=== PATIENT | female | born 1955 | race Caucasian/White ===

== ENCOUNTER 2017-02-09 14:43 | Emergency (ER) | payer OTHER ==
[2017-02-09] MEDS ORDERED: NS 1,000 ML IV ONE ×2 (15:52→17:43)
--- NOTE | 2017-02-09 15:57 | EDPHY ---
H & P Stated Complaint: sent by MD for low Na+, shaky, weak, dizzy Time Seen by Provider: 02/09/17 15:45 HPI/ROS: CHIEF COMPLAINT: Shaking and weakness HISTORY OF PRESENT ILLNESS: The patient is a 61-year-old female who comes to the emergency department at the advice of her Dr Neely for generalized weakness and shaking. She has a history of alcoholism and alcohol withdrawal seizures also chronic hyponatremia from SIADH in poor sodium intake. In the past they have tried to place her on salt tablets but she refused. She also has a history of bipolar disorder and COPD. She has not had a fever. She states her last drink of alcohol was last night. She minimizes her alcohol intake. She states that she does have an undiagnosed intention tremor at baseline but it seems worse today. REVIEW OF SYSTEMS: Constitutional: denies: chills, fever, recent illness, recent injury EENTM: denies: blurred vision, double vision, nose congestion Respiratory: denies: cough, shortness of breath Cardiac: denies: chest pain, irregular heart rate, lightheadedness, palpitations Gastrointestinal/Abdominal: denies: abdominal pain, diarrhea, nausea, vomiting, blood streaked stools Genitourinary: denies: dysuria, frequency, hematuria, pain Musculoskeletal: denies: joint pain, muscle pain Skin: denies: lesions, rash, jaundice, bruising Neurological: See HPI Hematologic/Lymphatic: denies: blood clots, easy bleeding, easy bruising Immunologic/allergic: denies: HIV/AIDS, transplant EXAM: GENERAL: Walking, no acute distress. HEAD: Atraumatic, normocephalic. EYES: Pupils equal round and reactive to light, extraocular movements intact, sclera anicteric, conjunctiva are normal. ENT: TMs normal, nares patent, oropharynx clear without exudates. Moist mucous membranes. NECK: Normal range of motion, supple without lymphadenopathy or JVD. LUNGS: Breath sounds clear to auscultation bilaterally and equal. No wheezes rales or rhonchi. HEART: Regular rate and rhythm without murmurs, rubs or gallops. ABDOMEN: Soft, nontender, normoactive bowel sounds. No guarding, no rebound. No masses appreciated. BACK: No CVA tenderness, no spinal tenderness, step-offs or deformities EXTREMITIES: Normal range of motion, no pitting or edema. No clubbing or cyanosis. NEUROLOGICAL: Mild diffuse tremor with movement. Cranial nerves II through XII grossly intact. Normal speech, normal gait. 5/5 strength, normal movement in all extremities, normal sensation PSYCH: Normal mood, normal affect. SKIN: Warm, dry, normal turgor, no visible rashes or lesions. Source: Patient Exam Limitations: No limitations - Personal History Current Tetanus/Diphtheria Vaccine: Yes Current Tetanus Diphtheria and Acellular Pertussis (TDAP): Yes Tetanus Vaccine Date: Within 5 years. - Medical/Surgical History Hx Asthma: No Hx Chronic Respiratory Disease: Yes Hx Diabetes: No Hx Cardiac Disease: No Hx Renal Disease: No Hx Cirrhosis: No Hx Alcoholism: Yes Hx HIV/AIDS: No Hx Splenectomy or Spleen Trauma: No Other PMH: COPD, HTN, mixed connective tissue disorder, hypothyroid, chronic pain, HL, reports bipolar, etoh, smoker, hep c+,pneumonia,psych - Family History Significant Family History: No pertinent family hx - Social History Smoking Status: Former smoker Alcohol Use: Heavy Drug Use: Marijuana Constitutional: Initial Vital Signs Temperature (C) 36.9 C 02/09/17 15:27 Heart Rate 116 H 02/09/17 15:27 Respiratory Rate 20 02/09/17 15:27 Blood Pressure 157/98 H 02/09/17 15:27 O2 Sat (%) 90 L 02/09/17 15:27 O2 Delivery Mode Room Air Allergies/Adverse Reactions: hydrochlorothiazide Allergy (Verified 02/09/17 15:25) Home Medications: Medication Instructions Recorded Albuterol Sulfate [Albuterol 2 puffs IH Q4H PRN 09/21/14 Inhaler Hfa] Calcium Carbonate [[id number]] 500 mg PO DAILY 09/21/14 Lisinopril [Zestril 5 mg (*)] 10 mg PO DAILY 09/21/14 [place]-3 Fatty Acids [Fish Oil 1000 1,000 mg PO DAILY 09/21/14 mg (*)] QUEtiapine FUMARATE [Seroquel 200 200 mg PO DAILY 09/21/14 mg (*)] QUEtiapine FUMARATE [Seroquel 300 mg PO HS 09/21/14 300mg (*)] Simvastatin 40 mg PO HS 09/21/14 Acetaminophen [Tylenol ES 500 mg 500 mg PO Q6 PRN 11/05/14 (*)] Hydroxychloroquine Sulfate 200 mg PO DAILY 11/05/14 [Plaquenil 200 mg (*)] Levothyroxine [Synthroid 112 mcg 112 mcg PO DAILY06 11/05/14 (*)] Meloxicam [Mobic 7.5 mg] 7.5 mg PO BID 11/05/14 Omeprazole 40 mg PO DAILY 11/05/14 diphenhydrAMINE [Benadryl] 25 mg PO Q6H PRN 11/05/14 Amoxicillin/Clavulanate Pot 875 mg PO BID #10 tab 11/10/14 [Augmentin 875 MG TAB (*)] Folic Acid [Folic Acid 1 MG (*)] 1 mg PO DAILY #0 tab 11/10/14 LORazepam [Ativan (*)] 0.5 mg PO Q4 PRN #14 tab 11/10/14 Methocarbamol [Robaxin 500 mg (*)] 500 mg PO QID #20 tab 11/10/14 Polyethylene Glycol 3350 [Miralax 17 gm PO DAILY PRN #0 pkt 11/10/14 17 gm (*)] oxyCODONE IR [Oxycodone Ir (*)] 5 - 10 mg PO Q3 PRN #30 tab 11/10/14 Medical Decision Making ED Course/Re-evaluation: 5:45 p.m. the patient states she is feeling much better. She still has very mild tremors in tachycardia. I will treat her with more Ativan and IV fluids. Her sodium here is 129 which is much more consistent with her previous levels. I suspect that the test yesterday was apparent. The patient states she did have some salty food yesterday at home. 6:35 p.m. the patient states that she feels completely well and wishes to go home. Her tremors have stop with Ativan. She is no longer tachycardic. I suspect that they are from alcohol withdrawal not from low sodium. Her sodium here is at her baseline. I suspect she had a bad value yesterday that was incorrect. I did offer to keep her for further observation and she declines. I offered to center to the alcohol recovery Center with benzos. She declines. She does not wish to stop drinking. Differential Diagnosis: Partial list of the Differential diagnosis considered include but were not limited to; electrolyte abnormality, alcohol withdrawal, dehydration and although unlikely based on the history and physical exam, I also considered infection, head injury. I discussed these differential diagnoses and the plan with the patient as well as the usual and expected course. The patient understands that the diagnosis is provisional and that in medicine we are not always correct and that further workup is often warranted. Usual and customary warnings were given. All of the patient's questions were answered. The patient was instructed to return to the emergency department should the symptoms at all worsen or return, otherwise to followup with the physician as we discussed. - Data Points Laboratory Results: Laboratory Results 02/09/17 15:51 02/09/17 15:51 02/09/17 02/09/17 15:51 15:51 WBC 5.06 10^3/uL 10^3/uL (3.80-9.50) RBC 3.57 10^6/uL L 10^6/uL (4.18-5.33) Hgb 12.6 g/dL g/dL (12.6-16.3) Hct 35.5 % L % (38.0-47.0) MCV 99.4 fL fL (81.5-99.8) MCH 35.3 pg H pg (27.9-34.1) MCHC 35.5 g/dL g/dL (32.4-36.7) RDW 12.7 % % (11.5-15.2) Plt Count 210 10^3/uL 10^3/uL (150-400) MPV 8.6 fL L fL (8.7-11.7) Neut % (Auto) 63.2 % % (39.3-74.2) Lymph % (Auto) 23.9 % % (15.0-45.0) Centre % (Auto) 10.7 % % (4.5-13.0) Eos % (Auto) 0.8 % % (0.6-7.6) Baso % (Auto) 0.8 % % (0.3-1.7) Nucleat RBC Rel Count 0.0 % % (0.0-0.2) Absolute Neuts (auto) 3.20 10^3/uL 10^3/uL (1.70-6.50) Absolute Lymphs (auto) 1.21 10^3/uL 10^3/uL (1.00-3.00) Absolute Monos (auto) 0.54 10^3/uL 10^3/uL (0.30-0.80) Absolute Eos (auto) 0.04 10^3/uL 10^3/uL (0.03-0.40) Absolute Basos (auto) 0.04 10^3/uL 10^3/uL (0.02-0.10) Absolute Nucleated RBC 0.00 10^3/uL 10^3/uL (0-0.01) Immature Gran % 0.6 % % (0.0-1.1) Immature Gran # 0.03 10^3/uL 10^3/uL (0.00-0.10) Sodium 129 mEq/L L mEq/L (134-144) Potassium 5.3 mEq/L H mEq/L (3.5-5.2) Chloride 88 mEq/L L mEq/L (97-110) Carbon Dioxide 21 mEq/l L mEq/l (22-31) Anion Gap 20 mEq/L H mEq/L (8-16) BUN 20 mg/dL mg/dL (7-23) Creatinine 1.1 mg/dL H mg/dL (0.6-1.0) Estimated GFR 51 Glucose 86 mg/dL mg/dL (70-100) Calcium 10.7 mg/dL H mg/dL (8.5-10.4) Phosphorus 5.2 mg/dL H mg/dL (2.5-4.5) TSH 0.343 uIU/mL L uIU/mL (0.465-4.680) Free T4 1.47 ng/dL ng/dL (0.59-2.19) Medications Given: Discontinued Medications Sodium Chloride (Ns) 1,000 mls @ 0 mls/hr IV ONCE ONE; Wide Open PRN Reason: Protocol Stop: 02/09/17 15:53 Last Admin: 02/09/17 16:02 Dose: 1,000 mls Sodium Chloride (Ns) 1,000 mls @ 0 mls/hr IV EDNOW ONE; Wide Open PRN Reason: Protocol Stop: 02/09/17 17:44 Last Admin: 02/09/17 17:58 Dose: 1,000 mls Lorazepam (Ativan Injection) 1 mg IVP EDNOW ONE Stop: 02/09/17 15:54 Last Admin: 02/09/17 16:08 Dose: Not Given Lorazepam (Ativan Injection) 1 mg IVP EDNOW ONE Stop: 02/09/17 16:08 Last Admin: 02/09/17 16:11 Dose: 1 mg Lorazepam (Ativan Injection) 1 mg IVP EDNOW ONE Stop: 02/09/17 17:44 Last Admin: 02/09/17 17:58 Dose: 1 mg Departure - Departure Disposition: Home, Routine, Self-Care Clinical Impression: ETOH abuse, Hyponatremia Condition: Fair Instructions: Hyponatremia (ED), Alcohol Withdrawal (ED) Referrals: Tammy Nelson MD [Primary Care Provider] - As per Instructions
[2017-02-09] MEDS: LORazepam 2 MG/ML INJ IVP ONE ×2 (16:02→16:08)
[2017-02-09 16:07] LABS: % IMMATURE GRANULYOCYTES 0.6 % (0.0-1.1); ABSOLUTE IMMATURE GRANULOCYTES 0.03 10^3/uL (0.00-0.10); ADD DIFF? NO; ADD MORPH? NO; ADD SCAN? NO; ATYPICAL LYMPHOCYTE FLAG 10 (0-99); FRAGMENT RBC FLAG 0 (0-99); HEMATOCRIT 35.5 % (38.0-47.0); HEMOGLOBIN 12.6 g/dL (12.6-16.3); LEFT SHIFT FLG 0 (0-99); LIPEMIA HEMOLYSIS FLAG 90 (0-99); MEAN CELL HEMOGLOBIN 35.3 pg (27.9-34.1); MEAN CELL HEMOGLOBIN CONCENTR. 35.5 g/dL (32.4-36.7); MEAN CELL VOLUME 99.4 fL (81.5-99.8); MEAN PLATELET VOLUME 8.6 fL (8.7-11.7); PLATELET CLUMPS FLAG 0 (0-99); PLATELET COUNT 210 10^3/uL (150-400); RED BLOOD CELL COUNT 3.57 10^6/uL (4.18-5.33); RED CELL DISTRIBUTION WIDTH 12.7 % (11.5-15.2)
[2017-02-09] MEDS ORDERED: LORazepam 2 MG/ML INJ IVP ONE ×2 (16:07→17:43)
[2017-02-09 16:40] LABS: ANION GAP 20 mEq/L (8-16); CALCIUM 10.7 mg/dL (8.5-10.4); CARBON DIOXIDE 21 mEq/l (22-31); CHLORIDE 88 mEq/L (97-110); CREATININE 1.1 mg/dL (0.6-1.0); GLOMERULAR FILTRATION RATE 51; GLUCOSE 86 mg/dL (70-100); POTASSIUM 5.3 mEq/L (3.5-5.2); SODIUM 129 mEq/L (134-144)
[2017-02-09 17:57] VITALS: RESP 16; TEMP 97.2; O2SAT 94
[2017-02-09 18:44] VITALS: BP 163/95; PULSE 97
== END 2017-02-09 18:44 | disposition home or self-care (01) ==
CPT/HCPCS: 96361; 96374; 96376; 99284; J2060

== ENCOUNTER → 2017-04-10 | Outpatient (CLI) | payer OTHER | LOC: FIMAGING 14:45 | PROVIDERS: ATTEND Internal Medicine Rheumatology ==

== ENCOUNTER 2017-06-25 23:58 | Emergency (ER) | payer OTHER ==
[2017-06-26 01:42] VITALS: TEMP 98.4
--- NOTE | 2017-06-26 01:46 | EDPHY ---
H & P Stated Complaint: fell 10am yesterday with right knee pain and swelling and ecchymosis Time Seen by Provider: 06/26/17 01:09 HPI/ROS: HPI The patient presents with fall which occurred yesterday at 10:00 a.m. when she was walking down a curb. She tripped and fell and landed on both of her knees. She was able to bear weight, however this was painful. The pain has been achy , his mostly medial. She has been using a cane which she had at home. She does not have any numbness or tingling. She does feel like her knee is swollen.. REVIEW OF SYSTEMS Constitutional: No fever, no chills. Eyes: No discharge. ENT: No sore throat. Cardiovascular: No chest pain, no palpitations. Respiratory: No cough, no shortness of breath. Gastrointestinal: No abdominal pain, no vomiting. Genitourinary: No hematuria. Musculoskeletal: No back pain. Skin: No rashes. Neurological: No headache. PMHx: COPD, osteoporosis Soc Hx: History of alcohol abuse PHYSICAL General Appearance: Alert, no distress Eyes: Pupils equal and round no pallor or injection ENT, Mouth: Mucous membranes moist Respiratory: There are no retractions, lungs are clear to auscultation Cardiovascular: Regular rate and rhythm Gastrointestinal: Abdomen is soft and non-tender, no masses, bowel sounds normal Neurological: A&O, moves all extremities Skin: Warm and dry, no rashes Musculoskeletal: Neck is supple non tender Extremities: Right knee with large effusion, there is ecchymoses overlying the patella, there is limited range of motion secondary to pain. Laxity is difficult to assess given large ecchymoses, there is tenderness along the medial joint line Psychiatric: Patient is oriented X 3, there is no agitation Source: Patient Exam Limitations: No limitations - Personal History Current Tetanus/Diphtheria Vaccine: Unsure Current Tetanus Diphtheria and Acellular Pertussis (TDAP): Unsure Tetanus Vaccine Date: Within 5 years. - Medical/Surgical History Hx Asthma: No Hx Chronic Respiratory Disease: Yes Hx Diabetes: No Hx Cardiac Disease: No Hx Renal Disease: No Hx Cirrhosis: No Hx Alcoholism: Yes Hx HIV/AIDS: No Hx Splenectomy or Spleen Trauma: No Other PMH: COPD, HTN, mixed connective tissue disorder, hypothyroid, chronic pain, HL, reports bipolar, etoh, smoker, hep c+,pneumonia,psych - Social History Smoking Status: Former smoker Constitutional: Initial Vital Signs Temperature (C) 36.5 C 06/26/17 00:05 Heart Rate 90 06/26/17 00:05 Respiratory Rate 18 06/26/17 00:05 Blood Pressure 149/88 H 06/26/17 00:05 O2 Sat (%) 94 06/26/17 00:05 O2 Delivery Mode Room Air Allergies/Adverse Reactions: hydrochlorothiazide Allergy (Mild, Verified 06/26/17 00:25) Home Medications: Medication Instructions Recorded Albuterol Sulfate [Albuterol 2 puffs IH Q4H PRN 09/21/14 Inhaler Hfa] Calcium Carbonate [[id number]] 500 mg PO DAILY 09/21/14 Lisinopril [Zestril 5 mg (*)] 10 mg PO DAILY 09/21/14 [place]-3 Fatty Acids [Fish Oil 1000 1,000 mg PO DAILY 09/21/14 mg (*)] QUEtiapine FUMARATE [Seroquel 200 200 mg PO DAILY 09/21/14 mg (*)] QUEtiapine FUMARATE [Seroquel 300 mg PO HS 09/21/14 300mg (*)] Simvastatin 40 mg PO HS 09/21/14 Acetaminophen [Tylenol ES 500 mg 500 mg PO Q6 PRN 11/05/14 (*)] Hydroxychloroquine Sulfate 200 mg PO DAILY 11/05/14 [Plaquenil 200 mg (*)] Levothyroxine [Synthroid 112 mcg 112 mcg PO DAILY06 11/05/14 (*)] Meloxicam [Mobic 7.5 mg] 7.5 mg PO BID 11/05/14 Omeprazole 40 mg PO DAILY 11/05/14 diphenhydrAMINE [Benadryl] 25 mg PO Q6H PRN 11/05/14 Amoxicillin/Clavulanate Pot 875 mg PO BID #10 tab 11/10/14 [Augmentin 875 MG TAB (*)] Folic Acid [Folic Acid 1 MG (*)] 1 mg PO DAILY #0 tab 11/10/14 LORazepam [Ativan (*)] 0.5 mg PO Q4 PRN #14 tab 11/10/14 Methocarbamol [Robaxin 500 mg (*)] 500 mg PO QID #20 tab 11/10/14 Polyethylene Glycol 3350 [Miralax 17 gm PO DAILY PRN #0 pkt 11/10/14 17 gm (*)] oxyCODONE IR [Oxycodone Ir (*)] 5 - 10 mg PO Q3 PRN #30 tab 11/10/14 Medical Decision Making - Diagnostics Imaging Results: X-ray right knee four view shows large joint effusion, no fracture, no dislocation, interpreted by me, radiology interpretation is pending. Procedures: Procedure: Arthrocentesis. After verbal informed consent was obtained explaining the risks including but not limited to infection and bleeding a arthrocentesis was performed on the right knee. The patient was prepped and draped in the usual sterile fashion. The joint was anesthetized with bupivacaine 0.5%. Approximately 50 mL of bloody fluid was obtained. There were no complications. The procedure was performed by myself. Differential Diagnosis: 62-year-old female with a mechanical fall more than 24 hr ago now with right- sided knee pain. Able to ambulate. On exam with tense effusion. There is overlying ecchymoses. Differential diagnosis includes patellar fracture, ligamentous injury, meniscal tear, tibial plateau fracture. In the emergency department, x-rays were obtained which demonstrated no obvious fracture. The patient and I discussed arthrocentesis and she would like to proceed. I was able to remove 50 mL of bloody fluid from her knee. She felt better after this. We discussed rice. I have referred her to Orthopedics. She will be discharged from the emergency department. Departure - Departure Disposition: Home, Routine, Self-Care Clinical Impression: Knee effusion, right Fall Qualifiers: Encounter type: initial encounter Qualified Code(s): W19.XXXA - Unspecified fall, initial encounter Condition: Good Instructions: Swollen Knee Joint (ED) Additional Instructions: Please use the Santhosh wrap at all times. I recommend you take Tylenol 650 mg every 6 hr as needed for pain. You should use ice and elevate your knee. Please continue to use a cane. I would recommend that you follow up with Orthopedics. I have put their information below. Referrals: Tammy Nelson MD [Primary Care Provider] - As per Instructions Fam Humphreys MD [Medical Doctor] - As per Instructions
[2017-06-26 02:08] VITALS: BP 125/73; PULSE 100; RESP 18; O2SAT 90
== END 2017-06-26 02:16 | disposition home or self-care (01) ==
LOC: EDUNIT#
PROC: 0S9C3ZZ Drainage of Right Knee Joint, Percutaneous Approach (ICD-10-PCS; principal; 2017-06-25)
DX: M25.461 Effusion, right knee (principal); J44.9 Chronic obstructive pulmonary disease, unspecified; I10 Essential (primary) hypertension; Z87.891 Personal history of nicotine dependence; W10.1XXA Fall (on)(from) sidewalk curb, initial encounter; Y92.89 Other specified places as the place of occurrence of the external cause; Y93.01 Activity, walking, marching and hiking

== ENCOUNTER 2017-07-01 19:14 | Inpatient (IN) | payer OTHER ==
--- NOTE | 2017-07-01 19:53 | EDPHY ---
H & P Stated Complaint: ETOH,COUGH,DIFFICUL;TY STANDING Time Seen by Provider: 07/01/17 19:21 HPI/ROS: CHIEF COMPLAINT: Altered mental status HISTORY OF PRESENT ILLNESS: 62-year-old female arrives by ambulance after she was found with altered mental status walking outside [place] is a wearing shorts and slippers in 15 degree and snowing conditions. EMS suspected acute alcohol intoxication. Patient has no complaints of pain or discomfort. She denies suicidal or homicidal ideation. REVIEW OF SYSTEMS: A ten point review of systems was performed and is negative with the exception of the items mentioned in the HPI PAST MEDICAL & SURGICAL HISTORY: Raynaud's disease. Alcoholism. Bipolar disorder. SOCIAL HISTORY:Admits to positive alcohol use today PHYSICAL EXAM (Prior to examination, patient consented to physical exam, hands were washed and my usual and customary physical exam procedures followed) 1) GENERAL: Poorly kept, alert oriented to person place only. Believes it is 1982.. 2) HEAD: Normocephalic, atraumatic 3) HEENT: Pupils equal, round, reactive to light bilaterally. Sclera anicteric. Nasopharynx, oropharynx, clear, no lesions. Ears bilaterally with normal tympanic membranes. 4) NECK: Full range of motion, no meningeal signs. 5) LUNGS: Clear auscultation bilaterally, no wheezes, no rhonchi, no retractions. 6) HEART: Regular rate and rhythm, no murmur, no heave, no gallop. 7) ABDOMEN: No guarding, no rebound, no focal tenderness, negative McBurney's, negative Swann's, negative Rovsing's, negative peritoneal sign, 8) MUSCULOSKELETAL: Bilateral lower extremity mottled appearance with cold feet , with with palpable bilateral DP PT pulses. 9) BACK: No CVA tenderness, no midline vertebral tenderness, no fluctuance, no step-off, no obvious trauma, no visual or palpable abnormality. 10) SKIN: Bilateral extremities mottled appearance, cold 11) Psychiatric: Patient is oriented X 3, there is no agitation. DIFFERENTIAL DIAGNOSIS: In no particular orderincluding but not limited to hypoglycemia, infectious process, electrolyte abnormality, head injury and intoxicants. - Personal History Current Tetanus/Diphtheria Vaccine: Yes Current Tetanus Diphtheria and Acellular Pertussis (TDAP): Yes Tetanus Vaccine Date: Within 5 years. - Medical/Surgical History Hx Asthma: No Hx Chronic Respiratory Disease: Yes Hx Diabetes: No Hx Cardiac Disease: No Hx Renal Disease: No Hx Cirrhosis: No Hx Alcoholism: Yes Hx HIV/AIDS: No Hx Splenectomy or Spleen Trauma: No Other PMH: COPD, HTN, mixed connective tissue disorder, hypothyroid, chronic pain, HL, reports bipolar, etoh, smoker, hep c+,pneumonia,psych - Social History Smoking Status: Former smoker Constitutional: Initial Vital Signs Temperature (C) 36.3 C 07/01/17 19:25 Heart Rate 103 H 07/01/17 19:25 Respiratory Rate 20 07/01/17 19:25 Blood Pressure 140/72 H 07/01/17 19:25 O2 Sat (%) 93 07/01/17 19:25 O2 Delivery Mode Nasal Cannula O2 (L/minute) 2 Allergies/Adverse Reactions: hydrochlorothiazide Allergy (Mild, Verified 07/01/17 19:29) Home Medications: Medication Instructions Recorded Albuterol Sulfate [Albuterol 2 puffs IH Q4H PRN 09/21/14 Inhaler Hfa] Calcium Carbonate [[id number]] 500 mg PO DAILY 09/21/14 Lisinopril [Zestril 5 mg (*)] 10 mg PO DAILY 09/21/14 Loda-3 Fatty Acids [Fish Oil 1000 1,000 mg PO DAILY 09/21/14 mg (*)] QUEtiapine FUMARATE [Seroquel 200 200 mg PO DAILY 09/21/14 mg (*)] QUEtiapine FUMARATE [Seroquel 300 mg PO HS 09/21/14 300mg (*)] Simvastatin 40 mg PO HS 09/21/14 Acetaminophen [Tylenol ES 500 mg 500 mg PO Q6 PRN 11/05/14 (*)] Hydroxychloroquine Sulfate 200 mg PO DAILY 11/05/14 [Plaquenil 200 mg (*)] Levothyroxine [Synthroid 112 mcg 112 mcg PO DAILY06 11/05/14 (*)] Meloxicam [Mobic 7.5 mg] 7.5 mg PO BID 11/05/14 Omeprazole 40 mg PO DAILY 11/05/14 diphenhydrAMINE [Benadryl] 25 mg PO Q6H PRN 11/05/14 Amoxicillin/Clavulanate Pot 875 mg PO BID #10 tab 11/10/14 [Augmentin 875 MG TAB (*)] Folic Acid [Folic Acid 1 MG (*)] 1 mg PO DAILY #0 tab 11/10/14 LORazepam [Ativan (*)] 0.5 mg PO Q4 PRN #14 tab 11/10/14 Methocarbamol [Robaxin 500 mg (*)] 500 mg PO QID #20 tab 11/10/14 Polyethylene Glycol 3350 [Miralax 17 gm PO DAILY PRN #0 pkt 11/10/14 17 gm (*)] oxyCODONE IR [Oxycodone Ir (*)] 5 - 10 mg PO Q3 PRN #30 tab 11/10/14 Medical Decision Making - Diagnostics Imaging Results: Imaging Impressions Chest X-Ray 07/01/17 20:58 Impression: No pneumonia. Nothing acute identified. Results discussed with MARIE Geronimo at 9:[address] 07/01/17 20:58 Impression: Nothing acute identified. Results called to MARIE Geronimo at 9:24 PM. General information for patients regarding this examination can be found at [email or web address]. If you have questions or comments about this report, please contact me at (hospital) or [phone] (cell). ED Course/Re-evaluation: 7:30 p.m.: Patient was seen shortly after arrival by myself and Dr. Eamon Mackey. She is noted have cold mottled bilateral feet which, given her history of Raynaud's disease and walking outside in sandals and shorts and 15 degree snowing we think is more than likely secondary to acute Raynaud's and cold weather exposure less than likely secondary to acute ischemia. Will warm the patient and re-evaluate. 8:15 p.m.: Patient's feet have been warmed and are becoming progressively more pink and less mottled. 8:59 p.m.: Patient was re-evaluated with serial exams a both myself and Dr. Eamon Mackey. Her alcohol level is negative. Discussed possible Wernicke encephalopathy, hepatic encephalopathy, delirium tremens. Plan will be admission. 10:30 p.m.: Consultation with hospitalist Dr. Allison Benavidez who will admit patient - Data Points Laboratory Results: Laboratory Results 07/01/17 20:09 07/01/17 20:09 07/01/17 07/01/17 07/01/17 20:09 20:09 20:09 WBC RBC Hgb Hct MCV MCH MCHC RDW Plt Count MPV Neut % (Auto) Lymph % (Auto) [place] % (Auto) Eos % (Auto) Baso % (Auto) Nucleat RBC Rel Count Absolute Neuts (auto) Absolute Lymphs (auto) Absolute Monos (auto) Absolute Eos (auto) Absolute Basos (auto) Absolute Nucleated RBC Immature Gran % Seg Neutrophils % Band Neutrophils % Lymphocytes % Monocytes % Metamyelocytes % Immature Gran # Absolute Seg Neuts Absolute Band Neuts Absolute Lymphocytes Absolute Monocytes Absolute Metamyelocyte RBC/WBC/PLT Morphology Platelet Estimate Sodium 131 mEq/L L mEq/L (135-145) Potassium 4.3 mEq/L mEq/L (3.5-5.2) Chloride 88 mEq/L L mEq/L (97-110) Carbon Dioxide 23 mEq/l mEq/l (22-31) Anion Gap 20 mEq/L H mEq/L (8-16) BUN 80 mg/dL H mg/dL (7-23) Creatinine 2.3 mg/dL H mg/dL (0.6-1.0) Estimated GFR 22 Glucose 100 mg/dL mg/dL (70-100) Calcium 10.4 mg/dL mg/dL (8.5-10.4) Total Bilirubin 0.8 mg/dL mg/dL (0.1-1.4) Conjugated Bilirubin 0.4 mg/dL mg/dL (0.0-0.5) Unconjugated Bilirubin 0.4 mg/dL mg/dL (0.0-1.1) AST 65 IU/L H IU/L (14-46) ALT 71 IU/L H IU/L (9-52) Alkaline Phosphatase 103 IU/L IU/L (38-126) Ammonia < 9.0 uMOL/L L uMOL/L (9.0-30.0) Total Protein 8.3 g/dL H g/dL (6.3-8.2) Albumin 4.9 g/dL g/dL (3.5-5.0) Lipase 628 IU/L H IU/L (23-300) TSH 6.770 uIU/mL H uIU/mL (0.465-4.680) Salicylates < 1.0 mg/dL L mg/dL (2.0-20.0) Acetaminophen < 10 mcg/mL L mcg/mL (10-30) Ethyl Alcohol < 10 mg/dL mg/dL (0-10) 07/01/17 20:09 WBC 8.73 10^3/uL 10^3/uL (3.80-9.50) RBC 4.14 10^6/uL L 10^6/uL (4.18-5.33) Hgb 14.4 g/dL g/dL (12.6-16.3) Hct 39.9 % % (38.0-47.0) MCV 96.4 fL fL (81.5-99.8) MCH 34.8 pg H pg (27.9-34.1) MCHC 36.1 g/dL g/dL (32.4-36.7) RDW 12.0 % % (11.5-15.2) Plt Count 358 10^3/uL 10^3/uL (150-400) MPV 8.3 fL L fL (8.7-11.7) Neut % (Auto) Not Reported Lymph % (Auto) Not Reported [place] % (Auto) Not Reported Eos % (Auto) Not Reported Baso % (Auto) Not Reported Nucleat RBC Rel Count 0.0 % % (0.0-0.2) Absolute Neuts (auto) Not Reported Absolute Lymphs (auto) Not Reported Absolute Monos (auto) Not Reported Absolute Eos (auto) Not Reported Absolute Basos (auto) Not Reported Absolute Nucleated RBC 0.00 10^3/uL 10^3/uL (0-0.01) Immature Gran % Not Reported Seg Neutrophils % 72 % % Band Neutrophils % 7 % % Lymphocytes % 8 % % Monocytes % 12 % % Metamyelocytes % 1 % % Immature Gran # Not Reported Absolute Seg Neuts 6.29 10^/uL 10^/uL (1.70-6.50) Absolute Band Neuts 0.61 10^3/uL 10^3/uL (0.00-0.70) Absolute Lymphocytes 0.70 10^3/uL L 10^3/uL (1.00-3.00) Absolute Monocytes 1.05 10^3/uL H 10^3/uL (0.30-0.80) Absolute Metamyelocyte 0.09 10^3/mL H 10^3/mL (0.00-0.00) RBC/WBC/PLT Morphology NORMAL (NORMAL) Platelet Estimate ADEQUATE (ADEQ) Sodium Potassium Chloride Carbon Dioxide Anion Gap BUN Creatinine Estimated GFR Glucose Calcium Total Bilirubin Conjugated Bilirubin Unconjugated Bilirubin AST ALT Alkaline Phosphatase Ammonia Total Protein Albumin Lipase TSH Salicylates Acetaminophen Ethyl Alcohol Medications Given: Discontinued Medications Sodium Chloride (Ns) 1,000 mls @ 0 mls/hr IV ONCE ONE PRN Reason: Wide Open Stop: 07/01/17 21:49 Last Admin: 07/01/17 21:54 Dose: 1,000 mls Lorazepam (Ativan Injection) 2 mg IVP EDNOW ONE Stop: 07/01/17 20:53 Last Admin: 07/01/17 20:58 Dose: 2 mg Lorazepam (Ativan Injection) 1 mg IVP EDNOW ONE Stop: 07/01/17 22:00 Last Admin: 07/01/17 22:01 Dose: 1 mg Departure - Departure Disposition: [facility] Inpatient Acute Clinical Impression: Alcohol withdrawal delirium Condition: Fair Referrals: Tammy Nelson MD [Primary Care Provider] - As per Instructions
[2017-07-01 20:26] LABS: PLATELET COUNT 358 10^3/uL (150-400)
[2017-07-01] MEDS ORDERED: LORazepam 2 MG/ML INJ IVP ONE ×2 (20:52→21:59)
[2017-07-01] MEDS ORDERED: THIAMINE HCL 100 MG TAB PO ONE (20:59)
[2017-07-01] MEDS ORDERED: FOLIC ACID 1 MG TAB PO ONE (20:59)
[2017-07-01] MEDS ORDERED: NS 1,000 ML IV ONE (21:48)
[2017-07-01] MEDS ORDERED: LORazepam 2 MG/ML INJ ONE (22:00)
[2017-07-01] MEDS ORDERED: LORazepam 2 MG/ML INJ IVP PRN (23:22)
--- NOTE | 2017-07-01 23:53 | PDGENHP ---
History and Physical - Chief Complaint altered mental status - History of Present Illness Source-patient is able to provide only a limited amount of history secondary to acute altered mental status. Majority of history obtained after discussion with ED provider and review of EMR. There is no family or friends at bedside. HPI - this is a 62-year-old female with past medical history significant for bipolar disorder, COPD, alcohol with history withdrawal and seizures, Raynaud's who presents emergency department today after she was found confused at [employer] wearing T-shirt, shorts and slippers. Patient reports that she went to the grocery store with her friend in her summer att in 20 degree weather which is typical for her. Patient states she fell at the [employer] and that is why she is here in the ER. Patient reports that she has had a series of falls. She denies any headache or neck pain but is unable to recall the events. Patient denies any fevers or chills. Patient does report left knee pain following a fall for which she was in the emergency department and had aspiration of the effusion. Patient reports some lower extremity edema which is worse on the left than the right but is new for her as well. Patient reports that she drinks a 1 L bottle of wine per day on a daily basis. Unsure of when she last had a drink. In the ED, patient brought in by EMS she was noted to have discolored and blanching bilateral distal lower and upper extremities. Patient's feet were we warmed with continued pulses. Patient's core temperature was found and remained within normal limits. Review of systems: Negative except as noted above History Information - Allergies/Home Medication List Allergies/Adverse Reactions: hydrochlorothiazide Allergy (Mild, Verified 07/01/17 19:29) Home Medications: Albuterol Sulfate [Albuterol Inhaler Hfa] 2 puffs IH Q4H PRN 09/21/14 [Last Taken Unknown] Calcium Carbonate [[id number]] 500 mg PO DAILY 09/21/14 [Last Taken Unknown] Lisinopril [Zestril 5 mg (*)] 10 mg PO DAILY 09/21/14 [Last Taken Unknown] Armour-3 Fatty Acids [Fish Oil 1000 mg (*)] 1,000 mg PO DAILY 09/21/14 [Last Taken Unknown] QUEtiapine FUMARATE [Seroquel 200 mg (*)] 200 mg PO DAILY 09/21/14 [Last Taken Unknown] QUEtiapine FUMARATE [Seroquel 300mg (*)] 300 mg PO HS 09/21/14 [Last Taken Unknown] Simvastatin 40 mg PO HS 09/21/14 [Last Taken Unknown] Acetaminophen [Tylenol ES 500 mg (*)] 500 mg PO Q6 PRN 11/05/14 [Last Taken Unknown] Hydroxychloroquine Sulfate [Plaquenil 200 mg (*)] 200 mg PO DAILY 11/05/14 [ Last Taken Unknown] Levothyroxine [Synthroid 112 mcg (*)] 112 mcg PO DAILY06 11/05/14 [Last Taken Unknown] Meloxicam [Mobic 7.5 mg] 7.5 mg PO BID 11/05/14 [Last Taken Unknown] Omeprazole 40 mg PO DAILY 11/05/14 [Last Taken Unknown] diphenhydrAMINE [Benadryl] 25 mg PO Q6H PRN 11/05/14 [Last Taken Unknown] I have personally reviewed and updated: family history, medical history, social history, surgical history Past Medical History: patient denied taking any medications on regular basis. - Past Medical History Additional medical history: Bipolar disorder, alcohol dependence with 3 withdrawal seizures, Raynaud's, erosive esophagitis, history GI bleed, hypothyroidism, COPD, tobacco abuse, history maxillary sinus fracture, anemia - Surgical History Additional surgical history: Breast reduction, sacral plasty - Family History Additional family history: Family history negative for seizures. brother with history of drug and alcohol abuse. Other family members with history of DM an HTN - Social History Smoking Status: Current some day smoker Tobacco Use: Cigarettes, Greater than 1 pack/day (One ppd x 50 years) Alcohol Use: Heavy (1 L more of 1 eye daily basis) Drug Use: None Additional social history: Patient lives alone in apartment. Her neighbor provide support. Patient has a brother who lives in [place]. Code status is full at this time unable to explain fully with patient previous admissions note also full code. Review of Systems Review of Systems: ROS: 10pt was reviewed & negative except for what was stated in HPI & below Physical Exam Physical Exam: Selected Entries 07/01/17 19:25 Blood Pressure Automatic Method Heart Rate 103 H Respiratory 20 Rate O2 Sat (%) 93 Temperature (C) 36.3 C Blood Pressure 140/72 H Mean Arterial 94 Pressure (MAP) O2 Delivery Room Air Mode Temperature Oral Source Temp Pulse Resp BP Pulse Ox 36.8 C 107 H 16 110/75 94 07/01/17 23:29 07/01/17 23:29 07/01/17 23:29 07/01/17 23:29 07/01/17 23:29 O2 (L/minute) 2 Constitutional: no apparent distress, chronically ill appearing, unkempt, cachectic Eyes: PERRL (Slightly decreased reactivity but symmetric bilaterally.), anicteric sclera, EOMI, No scleral injection Ears, Nose, Mouth, Throat: oral ulcer (Ulceration on the left lateral anterior tongue), poor dentition, dry mucous membranes Cardiovascular: no murmur, rub, or gallop, tachycardia, No JVD Peripheral Pulses: 1+: dorsalis-pedis (R) (Limited secondary to edema), dorsalis -pedis (L) (Limited secondary to edema) Respiratory: no respiratory distress, no rales or rhonchi, clear to auscultation , other (Poor inspiratory effort) Gastrointestinal: normoactive bowel sounds, soft, non-tender abdomen, no palpable masses, other (Abdomen is soft but full of stool. Nondistended), No guarding, No distension Genitourinary: no bladder tenderness, No rollins in urethra Skin: warm, erythema (To bilateral lower extremities extending approximately above the ankle), other (Patient has multiple abrasions and sores including right shoulder, left tongue ulceration, left arm scabbed lesion, circular scabbed lesions approximately 1 cm on bilateral lower extremities, left great toe wound, large circular gluteal of pressure sore appears to be from a toilet seat, sacral abrasions.), No normal color, No mottled Musculoskeletal: joint tenderness (S left knee), generalized weakness Neurologic: weakness, CN II-XII Intact, other (Nonfocal exam), No AAOx3, No sensation intact bilaterally, No facial droop Psychiatric: not anxious, encephalopathic, No not encephalopathic, No thought process linear, No suicidal ideation, No agitated Lab Data & Imaging Review 07/01/17 20:09 07/01/17 20:09 WBC 8.73 10^3/uL (3.80-9.50) 07/01/17 20:09 RBC 4.14 10^6/uL (4.18-5.33) L 07/01/17 20:09 Hgb 14.4 g/dL (12.6-16.3) 07/01/17 20:09 Hct 39.9 % (38.0-47.0) 07/01/17 20:09 MCV 96.4 fL (81.5-99.8) 07/01/17 20:09 MCH 34.8 pg (27.9-34.1) H 07/01/17 20:09 MCHC 36.1 g/dL (32.4-36.7) 07/01/17 20:09 RDW 12.0 % (11.5-15.2) 07/01/17 20:09 Plt Count 358 10^3/uL (150-400) 07/01/17 20:09 MPV 8.3 fL (8.7-11.7) L 07/01/17 20:09 Neut % (Auto) Not Reported 07/01/17 20:09 Lymph % (Auto) Not Reported 07/01/17 20:09 Fisher % (Auto) Not Reported 07/01/17 20:09 Eos % (Auto) Not Reported 07/01/17 20:09 Baso % (Auto) Not Reported 07/01/17 20:09 Nucleat RBC Rel Count 0.0 % (0.0-0.2) 07/01/17 20:09 Absolute Neuts (auto) Not Reported 07/01/17 20:09 Absolute Lymphs (auto) Not Reported 07/01/17 20:09 Absolute Monos (auto) Not Reported 07/01/17 20:09 Absolute Eos (auto) Not Reported 07/01/17 20:09 Absolute Basos (auto) Not Reported 07/01/17 20:09 Absolute Nucleated RBC 0.00 10^3/uL (0-0.01) 07/01/17 20:09 Immature Gran % Not Reported 07/01/17 20:09 Seg Neutrophils % 72 % 07/01/17 20:09 Band Neutrophils % 7 % 07/01/17 20:09 Lymphocytes % 8 % 07/01/17 20:09 Monocytes % 12 % 07/01/17 20:09 Metamyelocytes % 1 % 07/01/17 20:09 Immature Gran # Not Reported 07/01/17 20:09 Absolute Seg Neuts 6.29 10^/uL (1.70-6.50) 07/01/17 20:09 Absolute Band Neuts 0.61 10^3/uL (0.00-0.70) 07/01/17 20:09 Absolute Lymphocytes 0.70 10^3/uL (1.00-3.00) L 07/01/17 20:09 Absolute Monocytes 1.05 10^3/uL (0.30-0.80) H 07/01/17 20:09 Absolute Metamyelocyte 0.09 10^3/mL (0.00-0.00) H 07/01/17 20:09 RBC/WBC/PLT Morphology NORMAL (NORMAL) 07/01/17 20:09 Platelet Estimate ADEQUATE (ADEQ) 07/01/17 20:09 Sodium 131 mEq/L (135-145) L 07/01/17 20:09 Potassium 4.3 mEq/L (3.5-5.2) 07/01/17 20:09 Chloride 88 mEq/L (97-110) L 07/01/17 20:09 Carbon Dioxide 23 mEq/l (22-31) 07/01/17 20:09 Anion Gap 20 mEq/L (8-16) H 07/01/17 20:09 BUN 80 mg/dL (7-23) H 07/01/17 20:09 Creatinine 2.3 mg/dL (0.6-1.0) H 07/01/17 20:09 Estimated GFR 22 07/01/17 20:09 Glucose 100 mg/dL (70-100) 07/01/17 20:09 Calcium 10.4 mg/dL (8.5-10.4) 07/01/17 20:09 Total Bilirubin 0.8 mg/dL (0.1-1.4) 07/01/17 20:09 Conjugated Bilirubin 0.4 mg/dL (0.0-0.5) 07/01/17 20:09 Unconjugated Bilirubin 0.4 mg/dL (0.0-1.1) 07/01/17 20:09 AST 65 IU/L (14-46) H 07/01/17 20:09 ALT 71 IU/L (9-52) H 07/01/17 20:09 Alkaline Phosphatase 103 IU/L (38-126) 07/01/17 20:09 Ammonia < 9.0 uMOL/L (9.0-30.0) L 07/01/17 20:09 Total Protein 8.3 g/dL (6.3-8.2) H 07/01/17 20:09 Albumin 4.9 g/dL (3.5-5.0) 07/01/17 20:09 Lipase 628 IU/L (23-300) H 07/01/17 20:09 TSH 6.770 uIU/mL (0.465-4.680) H 07/01/17 20:09 Salicylates < 1.0 mg/dL (2.0-20.0) L 07/01/17 20:09 Acetaminophen < 10 mcg/mL (10-30) L 07/01/17 20:09 Ethyl Alcohol < 10 mg/dL (0-10) 07/01/17 20:09 Imaging Review: Chest, PA and Lateral History: Cough, EtOH, altered mental status Comparison: September 11 and November 06, 2014 Findings: There is new kyphoplasty cement in T7 which is mildly compressed. Other compressions of T8-T3-T4 and 5 are stable. No interval compressions have developed. Lungs are clear, without infiltrate or consolidation. Heart size and pulmonary vascularity are normal. There is no adenopathy or mass lesion. There is no pleural effusion. Right lateral fifth sixth and seventh rib fracture deformities are stable since November 06, 2014.. Impression: No pneumonia. Nothing acute identified. CT Head Without Contrast History: Altered mental status, EtOH. Technique: Noncontrast images through the head. Soft tissue and bone window evaluation is performed. Dose reduction techniques were utilized. Comparison: November 05, 2014 Findings: There is progressive supratentorial atrophy as evidenced by increase in width of the third ventricle and frontal horns. The greatest atrophy is in the midline cerebellum. There is no evidence for hemorrhage, mass lesion, acute infarction, intracranial edema, hydrocephalus or abnormal intracranial calcification. No subarachnoid blood is identified. There is no midline shift. The ambient cistern is patent. Bone window evaluation reveals normally aerated paranasal and mastoid sinuses. There is no evidence of pneumocephalus. There is a chronically reversed upper cervical curvature related to chronic spondylosis. Impression: Nothing acute identified. EKG additional interpertation: tele - sinus tachy Assessment & Plan Assessment: 62-year-old female with history of alcohol dependence found confused in below freezing conditions #Alcohol withdrawal delirium (Acute) - patient with an acute encephalopathy likely resulting from alcohol withdrawal with a previous history. Additional considerations for differential diagnosis including less likely infectious process versus metabolic with acute versus hepatic encephalopathy versus CVA vs uremia and less likely myxedema coma with history of elevated TSH verses mell/psychosis with history of untreated bipolar disorder. Patient without any white count or fever, and chest x-ray is clear.. Still awaiting a UA but patient remains dehydrated continuing IV fluids. Or alcohol level is negative. Will check up ammonia level in the morning. CT head negative for acute findings. Patient will be placed on CIWA protocol and has responded appropriately in the emergency department with Ativan dosing. Patient require close monitoring in the step- down unit. #avalos bite hands/feet-patient's feel significantly cor on arrival to the emergency department. She is status post weaning with continued pulses bilaterally. She does have some reperfusion edema present will monitor that closely. Unsure if there is a component of liver dysfunction in setting of chronic alcohol abuse. Sec does have some level of coagulopathy has she has extensive bruising with falls and likely cirrhosis. #GRACIELA-this is likely prerenal in nature patient will continue with IV fluids. Will plan to repeat a BMP and consider urine studies if no improvement. #hyponatremia-this could represents hypovolemia in setting of dehydration acute renal insufficiency. Continue with IV fluid replacement and repeat BMP as above. #transaminitis-secondary to alcohol cirrhosis versus alcoholic hepatitis versus less likely viral hepatitis. Will continue to monitor left LFTs. Will avoid hepatotoxic medications at this. #elevated lipase-likely elevated in setting of alcohol related hepatitis. This is under t 3 times upper limit of normal and patient without any abdominal pain consistent with a P pancreatitis but will monitor closely. #hypothyroidism-TSH is slightly elevated but could be 0 in setting of acute alcohol withdrawal. Will go ahead and check TFTs. It suspect patient with under treatment of her hypothyroidism on a regular basis. #wounds POA-see exam for locations including shoulder tongue arms legs buttock sacrum and toes. Patient with history of multiple falls and injuries. Wound Care has been consulted. Patient's circular wound on her buttocks is appears to be secondary to pressure involving the toilet seat. #falls - related to patient's alcoholism and withdrawal. Fall precautions and bed alarm. #COPD without exacerbation-patient with longstanding history of tobacco abuse currently without any wheezing patient will have DuoNeb available p.r.n. for shortness of breath. #Raynauds-patient continues to have erythema and discoloration at the distal digits despite rewarming. #History of esophagitis-patient is not currently taking any medications are on PPI will avoid H2 blockers at this time in setting of acute encephalopathy. Consider proton pump inhibitor for now. No evidence of active bleeding. #bipolar disorder-seoquel listed on home medications however patient denied taking any. regularity is uncertain. She attempts to be cooperative and answer questions as much as possible. She does not appear agitated or manic. Will continue to monitor and add antipsychotics if necessary. #underweight - bmi 18.8 - 2/2 etoh dependence and poor nutritional intake. dietary consulted. FEN - IVF with LR. electrolytes will be monitored and replaced prn. advance diet as tolerated if pt can safely swallow. COR - FULL at this time. patient confused. patient previous hospital stays also noted full. Patient desires her brother to act as proxy if needed PPX-SCDs will be held for now secondary to lower extremity edema and frostbite. Will check PT INR before initiating anticoagulation although patient is at increased risk for DVT she has extensive bruising related to falls and suspect coagulopathy in setting of chronic alcohol dependence and cirrhosis.
[2017-07-02] MEDS: ONDANSETRON 4 MG/2 ML VIAL IVP PRN (02:37)
[2017-07-02] MEDS: LR 1,000 ML IV SCH ×2 (02:43→20:45)
[2017-07-02] MEDS ORDERED: HALOPERIDOL LACT 5 MG/ML INJ IVP PRN (02:51)
[2017-07-02] MEDS ORDERED: LORazepam 2 MG/ML INJ IVP PRN (02:51)
[2017-07-02] MEDS: LORazepam 2 MG/ML INJ IVP SCH ×4 (05:04→18:16)
[2017-07-02] MEDS: HEPARIN 5,000 UNIT/0.5 ML SYR SC SCH ×3 (05:04→20:40)
[2017-07-02 06:20] LABS: PLATELET COUNT 316 10^3/uL (150-400)
[2017-07-02 06:31] LABS: CREATINE KINASE 584 IU/L (0-156)
[2017-07-02 06:39] LABS: INR 1.12 (0.83-1.16); PROTIME(PATIENT) 14.6 SEC (12.0-15.0)
--- NOTE | 2017-07-02 07:41 | PDMN ---
Medical Necessity Medical necessity: Pt meets INPT criteria per MD and [facility] M-590 Delirium (pt found confused in below freezing conditions; acute alcohol withdrawal delirium with a previous hx, avalos bite to hands and feet, GRACIELA, hyponatremia, transaminitis, elevated lipase; hx multiple falls and injuries, skin wounds, COPD, Raynauds, bipolar).
[2017-07-02] MEDS: THIAMINE HCL 500 MG in NS 100 ML IV SCH (08:25)
--- NOTE | 2017-07-02 09:45 | ASMTCMCOM ---
CM Note CM Note Notes: 62 year old female admitted for encephalopathy, ETOH W/D, falls. She has a hx of ETOH 1L wine/day, W/D, Sz, smoker, Bipolar, COPD, Raynaud's. CM to follow for discharge needs. Date Signed: 07/02/2017 09:44 AM Electronically Signed By:Mary Rushing LCSW
[2017-07-02] MEDS ORDERED: ALBUTEROL 60 PUFFS/8 GM MDI IH PRN (12:03)
[2017-07-02] MEDS: BUDESONIDE/FORMOTEROL 160/4.5 60 PUFFS/MDI IH SCH ×2 (12:11→20:40)
[2017-07-02] MEDS: LEVOTHYROXINE 112 MCG TAB PO SCH (12:27)
--- NOTE | 2017-07-02 14:58 | WOCRNPDOC ---
WOCRN Advanced Assessment Note - Skin Integrity Problem, Advanced Assess Bilateral Buttock Pressure Injury Dressing Type: Open to Air Exudate Amount: None Exudate Characteristic(s): None Integumentary Issue Intervention: Dressing Applied, Hydrogel Applied Gregoria Wound Tissue: Blanching, Intact Gregoria Wound Swelling: None Wound Bed Color: Red Wound Bed Constitution: Red/Crown Point - Non Granular Tissue, De-roofed Serous Blister Site Odor: None Site Measurement - Head-to-Toe Length X Width X Depth (cm): Right buttock: [id number]. Left buttock: 0.9 cm, 16.5cmx0.1cm Pressure Injury Stage: Stage 2 Pressure Injury Present on Admit: Yes (in H&P) Skin Integrity Problem Comment: Linear, partial-thickness wounds noted on patient's bilateral buttocks, appearance consistent w/ stage 2 pressure injury. Based upon the shape of the wounds, it looks as though these occurred while patient was sitting for an extended period of time on a toilet seat. Configuration is almost horseshoe-shaped, extending from lower buttock, up and across upper buttock. There are places along both these wounds where the skin remains intact, and these areas are stage 1 injuries w/ intact skin. However, there are patches of de-roofed blister and partial-thickness tissue loss, and these are stage 2. I applied hydrogel to any open areas, and covered both sides w/ 2 large 6x6 Allevyns. Nursing will apply an Accu-max pump to the patient's mattress. As the source of these pressure injuries has been removed, no additional pressure-relieving measures needed at this time.
[2017-07-02] MEDS ORDERED: oxyCODONE IR 5 MG TAB PO PRN (18:05)
--- NOTE | 2017-07-02 18:14 | HOSPPROG ---
Hospitalist Progress Note Assessment/Plan: Assessment: 62-year-old female p/w acute encephalopathy in setting of acute alcohol withdraw # Alcohol withdrawal. (Acute), evidenced by encephalopathy, tremulousness, anxiety, tachycardia - persists, adjusted ativan to 1mg scheduled + PRNs # Acute encephalopathy. Evidenced by global brain dysfunction characterized as confusion, disorientation, now somnolence, all of which are acute changes from baseline resulting from metabolic effects of GRACIELA/hyponatremia + alcohol withdraw , CXR clear (personally interpreted) - cont to monitor closely in SDU - HCT atrophy, NH4 nl # Hager bite hands/feet. S/p warming w/ some reperfusion edema - PRN oxy IR as this can be quite painful # GRACIELA. Likely 2/2 hypovolemia in setting of exposure, improving s/p IVF - avoid NSAIDs # Hyponatremia. Acute, 2/2 hypovolemia, cont IVF and monitor # Alcoholic hepatitis. Likely 2/2 EtOH, cont to monitor - avoid tylenol # Hypothyroidism. Cont synthroid, consider uptitration # Wounds. POA, see exam for locations including shoulder tongue arms legs buttock sacrum and toes. Patient with history of multiple falls and injuries. - Wound Care has been consulted # Falls. Chronic, related to patient's alcoholism and withdrawal. Fall precautions and bed alarm. # COPD without exacerbation. PRN duoneb # Raynauds. Chronic, patient continues to have erythema and discoloration at the distal digits despite rewarming. # History of esophagitis. PPI # Bipolar disorder. Unclear type, chronic, seoquel listed on home medications however patient denied taking any. - no current mell # Underweight - bmi 18.8 - 2/2 etoh dependence and poor nutritional intake. dietary consulted. Diet. Reg as florian PPx. High risk, hep sc Code. Full Dispo. ADD uncertain, ongoing withdraw High level of medical complexity, high risk worsening morbidity given ongoing withdraw and tachycardia w/ multiple co-morbid conditions. Subjective: patient reports discomfort in hands/feet Objective: Vital Signs Temp Pulse Resp BP Pulse Ox 37.1 C 86 23 H 149/66 H 95 07/02/17 15:48 07/02/17 15:48 07/02/17 15:48 07/02/17 15:48 07/02/17 15:48 Laboratory Results 07/02/17 06:00 07/02/17 06:00 07/01/17 07/02/17 07/03/17 05:59 05:59 05:59 Intake Total 824 1934 Output Total 0 700 Balance 824 1234 PT 14.6 SEC (12.0-15.0) 07/02/17 06:00 INR 1.12 (0.83-1.16) 07/02/17 06:00 - Physical Exam Constitutional: no apparent distress, chronically ill appearing, uncomfortable, unkempt Cardiovascular: tachycardia, edema (mild in distal extremities), other ( diminised pulses bilat dorsalis pedis), No systolic murmur, No irregularly irregular Respiratory: other (cough triggered on expiration), No reduced air movement, No expiratory wheeze, No inspiratory crackles, No bronchial breath sounds, No respiratory distress Gastrointestinal: normoactive bowel sounds, soft, non-tender abdomen, no palpable masses, No distension Skin: other (discolored, blanching bilat hands/feet) Neurologic: other (AAOx2 person/time, tremulous upper ext), No weakness, No asterixes, No facial droop Psychiatric: encephalopathic (concentration 2/7), anxious, flat affect, other ( naming 3/3), No agitated ICD10 Worksheet Patient Problems: Problems Problem Status Onset Upper GI bleed Acute Alcohol withdrawal delirium Acute
[2017-07-02] MEDS: QUEtiapine FUMARATE 300 MG TAB PO SCH (20:41)
[2017-07-02] MEDS: DILTIAZEM 30 MG TAB PO SCH ×2 (22:11→22:57)
[2017-07-02] MEDS ORDERED: DILTIAZEM 125 MG in D5W 125 ML IV SCH (22:45)
[2017-07-03] MEDS: LORazepam 2 MG/ML INJ IVP SCH ×3 (01:05→12:52)
[2017-07-03] MEDS: LR 1,000 ML IV SCH ×3 (01:07→18:15)
[2017-07-03] MEDS: LEVOTHYROXINE 112 MCG TAB PO SCH (04:07)
[2017-07-03] MEDS: HEPARIN 5,000 UNIT/0.5 ML SYR SC SCH (04:25)
[2017-07-03] MEDS: THIAMINE HCL 500 MG in NS 100 ML IV SCH (08:35)
[2017-07-03 09:05] LABS: HEPATITIS B SURFACE ANTIGEN NEGATIVE (NEGATIVE)
[2017-07-03 09:11] LABS: HEPATITIS A ANTIBODY IGM (BCH) NEGATIVE (NEGATIVE); HEPATITIS B CORE AB IGM NEGATIVE (NEGATIVE)
[2017-07-03 09:23] LABS: HEPATITIS C ANTIBODY TOTAL REACTIVE (NEGATIVE)
[2017-07-03] MEDS: BUDESONIDE/FORMOTEROL 160/4.5 60 PUFFS/MDI IH SCH ×2 (09:23→21:52)
[2017-07-03] MEDS: ENOXAPARIN 40 MG/0.4 ML SYR SC SCH (12:04)
--- NOTE | 2017-07-03 15:01 | ASMTCMCOM ---
CM Note CM Note Notes: I called patient's friend (listed in chart) Surjit Palmer. Patient has been too drowsy and confused to talk today. Per Surjit, he and patient "have some things to talk about." He made it seem like they have not been spending much time together lately but that another neighbor had informed him of her hospitalization. When I asked if she had any family, he said that she had a brother in [place] (no contact info) and that her mother had a few weeks ago. He wasn't sure if that was contributing to her drinking. He did say, "she takes her pills with wine." Regarding discharge, Surjit said that he does not drive anymore after a CVA a few months ago, but that he could accompany patient home in a cab if necessary. It's too early to determine d.c needs - initial PT shanti recommends SNF d/t patient's lack of stability on her feet. When she is able to have a conversation, we can speak with her about this and also about her drinking. Date Signed: 07/03/2017 03:00 PM Electronically Signed By:Chelle Burroughs RN
--- NOTE | 2017-07-03 17:14 | HOSPPROG ---
Hospitalist Progress Note Assessment/Plan: Assessment: 62-year-old female p/w acute encephalopathy in setting of acute alcohol withdraw # Alcohol withdrawal. (Acute), evidenced by encephalopathy, tremulousness, anxiety, tachycardia - persists, adjusted ativan PRNs to avoid worsening encephalopathy - d/w Dr. Cook, we agree to continue SDU # Acute encephalopathy. Evidenced by global brain dysfunction characterized as confusion, disorientation, now somnolence, all of which are acute changes from baseline resulting from metabolic effects of GRACIELA/hyponatremia + alcohol withdraw , CXR clear - cont to monitor closely in SDU, fluctuating mental status # Hager bite hands/feet. S/p warming w/ some reperfusion edema - PRN oxy IR as this can be quite painful, reduce dose range given ongoing encephalopathy # GRACILEA. Likely 2/2 hypovolemia in setting of exposure, improving s/p IVF - avoid NSAIDs # Hyponatremia. Acute, 2/2 hypovolemia, cont IVF and monitor # Alcoholic hepatitis. Likely 2/2 EtOH, cont to monitor - avoid tylenol # HCV. Unclear whether she has known diagnosis, will refer to ID on discharge # Hypothyroidism. Cont synthroid, consider uptitration # Wounds. POA, see exam for locations including shoulder tongue arms legs buttock sacrum and toes. Patient with history of multiple falls and injuries. - Wound Care has been consulted # Falls. Chronic, related to patient's alcoholism and withdrawal. Fall precautions and bed alarm. - PT/OT perlaals, recommend SNF, patient is unsafe to DC to street at this point # COPD without exacerbation. PRN duoneb # Raynauds. Chronic, patient continues to have erythema and discoloration at the distal digits despite rewarming. # History of esophagitis. PPI # Bipolar disorder. Unclear type, chronic, seoquel listed on home medications however patient denied taking any. - no current mell # Underweight - bmi 18.8 - 2/2 etoh dependence and poor nutritional intake. dietary consulted. Diet. Reg as florian PPx. High risk, lovenox 40 Code. Full Dispo. ADD uncertain, ongoing withdraw High level of medical complexity, high risk worsening morbidity given ongoing withdraw and tachycardia w/ multiple co-morbid conditions. Subjective: fluctuating mental status Objective: Vital Signs Temp Pulse Resp BP Pulse Ox 37.3 C 95 16 136/74 H 95 01/17/18 11:44 07/03/17 16:00 07/03/17 16:00 07/03/17 16:00 07/03/17 16:00 Laboratory Results 07/02/17 06:00 07/03/17 05:58 07/02/17 07/03/17 07/04/17 05:59 05:59 05:59 Intake Total 824 3803 540 Output Total 0 1600 Balance 824 2203 540 PT 14.6 SEC (12.0-15.0) 07/02/17 06:00 INR 1.12 (0.83-1.16) 07/02/17 06:00 - Physical Exam Constitutional: no apparent distress, not in pain, chronically ill appearing, uncomfortable Cardiovascular: tachycardia, edema (distal ext bilat UE/LE), No systolic murmur , No irregularly irregular Respiratory: no respiratory distress, no rales or rhonchi, clear to auscultation Gastrointestinal: normoactive bowel sounds, soft, non-tender abdomen, no palpable masses Skin: other (blanchable distal ext, discolored) Neurologic: AAOx3, sensation intact bilaterally, weakness (4/5 motor bilat LE), other (tremulous), No asterixes Psychiatric: encephalopathic (concentration 2/7), anxious, flat affect, poor memory, No agitated ICD10 Worksheet Patient Problems: Problems Problem Status Onset Upper GI bleed Acute Alcohol withdrawal delirium Acute
[2017-07-03] MEDS: QUEtiapine FUMARATE 300 MG TAB PO SCH (20:14)
[2017-07-03] MEDS: METOPROLOL TARTRATE 25 MG TAB PO SCH (20:14)
[2017-07-04] MEDS: LR 1,000 ML IV SCH (02:24)
[2017-07-04] MEDS: LEVOTHYROXINE 112 MCG TAB PO SCH (05:57)
[2017-07-04] MEDS: BUDESONIDE/FORMOTEROL 160/4.5 60 PUFFS/MDI IH SCH ×2 (08:27→20:57)
[2017-07-04] MEDS ORDERED: MELOXICAM 7.5 MG PO SCH (09:00)
[2017-07-04] MEDS ORDERED: NON-FORMULARY NEW DRUG (Meloxicam [Mobic 7.5 Mg] 7.5 MG) PO SCH (09:00)
[2017-07-04] MEDS: THIAMINE HCL 500 MG in NS 100 ML IV SCH (09:17)
[2017-07-04] MEDS: ENOXAPARIN 40 MG/0.4 ML SYR SC SCH (09:17)
[2017-07-04] MEDS: METOPROLOL TARTRATE 25 MG TAB PO SCH ×2 (09:17→20:42)
[2017-07-04] MEDS: LISINOPRIL 20 MG TAB PO SCH (09:17)
[2017-07-04] MEDS: NAPROXEN SODIUM 220 MG TAB PO SCH ×2 (11:06→20:42)
--- NOTE | 2017-07-04 17:23 | HOSPPROG ---
Hospitalist Progress Note Assessment/Plan: Assessment: 62-year-old female p/w acute encephalopathy in setting of acute alcohol withdraw # Alcohol withdrawal. (Acute), evidenced by tremulousness, anxiety, tachycardia - persists, adjusted ativan PRNs to avoid worsening encephalopathy - transfer to med surg # Acute encephalopathy. Evidenced by global brain dysfunction characterized as confusion, disorientation, now somnolence, all of which are acute changes from baseline resulting from metabolic effects of GRACIELA/hyponatremia + alcohol withdraw , CXR clear # Hager bite hands/feet. S/p warming w/ some reperfusion edema - PRN oxy IR as this can be quite painful, reduce dose range given ongoing encephalopathy - reintroduced NSAIDs, gauge whether we can stop opiates - resulting in significant debility and difficulty ambulating, may require SNF # GRACIELA. Likely 2/2 hypovolemia in setting of exposure, improving s/p IVF - resolved # Hyponatremia. Acute, 2/2 hypovolemia, off IVF # Alcoholic hepatitis. Likely 2/2 EtOH, cont to monitor - avoid tylenol # HCV. Unclear whether she has known diagnosis, will refer to ID on discharge # Hypothyroidism. Cont synthroid, consider uptitration # Wounds. POA, see exam for locations including shoulder tongue arms legs buttock sacrum and toes. Patient with history of multiple falls and injuries. - Wound Care has been consulted # Falls. Chronic, related to patient's alcoholism and withdrawal. Fall precautions and bed alarm. - PT/OT veronica, recommend SNF, patient is unsafe to DC to street at this point # COPD without exacerbation. PRN duoneb # Raynauds. Chronic, patient continues to have erythema and discoloration at the distal digits despite rewarming. # History of esophagitis. PPI # Bipolar disorder. Unclear type, chronic, seoquel listed on home medications however patient denied taking any. - no current mell # Underweight - bmi 18.8 - 2/2 etoh dependence and poor nutritional intake. dietary consulted. # HTN. Chronic, restart lisinopril and cont metop tart 12.5 bid # SVT. Acute, likely provoked by EtOH withdraw, chemically cardioverted w/ dilt - started metop tart 12.5 to suppress Diet. Reg as florian PPx. High risk, lovenox 40 Code. Full Dispo. ADD uncertain, ongoing withdraw Subjective: patient w/ ongoing pain, unsteady gait Objective: Vital Signs Temp Pulse Resp BP Pulse Ox 36.7 C 85 15 157/57 H 96 07/04/17 16:00 07/04/17 16:00 07/04/17 16:00 07/04/17 16:00 07/04/17 16:00 Laboratory Results 07/02/17 06:00 07/04/17 05:33 07/03/17 07/04/17 07/05/17 05:59 05:59 05:59 Intake Total 3803 3589 1650 Output Total 1600 1975 900 Balance 2203 1614 750 PT 14.6 SEC (12.0-15.0) 07/02/17 06:00 INR 1.12 (0.83-1.16) 07/02/17 06:00 - Physical Exam Constitutional: no apparent distress, chronically ill appearing, uncomfortable, unkempt, No not in pain (mild) Cardiovascular: tachycardia, edema (trace in distal hands/feet), No systolic murmur, No irregularly irregular Respiratory: expiratory wheeze (faint), No reduced air movement, No inspiratory crackles, No bronchial breath sounds, No respiratory distress Gastrointestinal: normoactive bowel sounds, soft, non-tender abdomen, no palpable masses, No distension Skin: other (blanchable hands/legs) Neurologic: sensation intact bilaterally, weakness (3/5 motor bilat LE), other ( AAOx2 (person and place)) Psychiatric: not anxious, flat affect, other (poor eye contact, follows commands , concentration 7/7), No agitated ICD10 Worksheet Patient Problems: Problems Problem Status Onset Upper GI bleed Acute Alcohol withdrawal delirium Acute
[2017-07-04] MEDS: QUEtiapine FUMARATE 300 MG TAB PO SCH (20:43)
[2017-07-05] MEDS: LEVOTHYROXINE 112 MCG TAB PO SCH (06:00)
[2017-07-05] MEDS: NAPROXEN SODIUM 220 MG TAB PO SCH ×2 (08:55→21:46)
[2017-07-05] MEDS: METOPROLOL TARTRATE 25 MG TAB PO SCH ×2 (08:56→21:47)
[2017-07-05] MEDS: ENOXAPARIN 40 MG/0.4 ML SYR SC SCH (08:56)
[2017-07-05] MEDS: LISINOPRIL 20 MG TAB PO SCH (08:56)
[2017-07-05] MEDS: BUDESONIDE/FORMOTEROL 160/4.5 60 PUFFS/MDI IH SCH ×2 (09:03→20:18)
--- NOTE | 2017-07-05 09:06 | WOCRNPDOC ---
WOCRN Advanced Assessment Note - Skin Integrity Problem, Advanced Assess Bilateral Buttock Pressure Injury Dressing Type: Allevyn Life Dressing Description: Intact Exudate Amount: Minimal Exudate Color: Reddish/Yellow Exudate Characteristic(s): Serosanguinous Integumentary Issue Intervention: Visualized Under Dressing Gregoria Wound Tissue: Blanching, Intact Gregoria Wound Swelling: None Wound Bed Color: Red Wound Bed Constitution: Red/[place] - Non Granular Tissue Wound Edges: Well Defined Pressure Injury Stage: Stage 2 Pressure Injury Present on Admit: Yes (Documented in H&P) Skin Integrity Problem Comment: Linear, partial-thickness wounds on bilateral buttocks consistent w/ stage 2 pressure injry. Exact etiology unknown, but appearance suggests patient may have sat for prolonged period on a toilet seat; horseshoe shape extending from lower buttocks and curving upward/inward on upper buttocks. Today wounds appear red, moist w/ no necrosis indicating deeper tissue involvement. Periwound skin is intact and blanching. Will continue to keep wounds covered w/ Allevyn Life dressings to protect from friction and confer moist healing environment. Continue w/ current plan of care. Wound RN will reassess on Wednesday 07/12.
--- NOTE | 2017-07-05 17:01 | ASMTCMCOM ---
CM Note CM Note Notes: CM met w/ pt for dispo planning. Therapies are recommending SNF. Pt is agreeable to going to SNF. Pt would like her first choice to be [facility] and her second choice [facility]. Referrals sent. CM started PASRR. CM was unable to complete PASRR because SPL is in the room. CM to follow. Plan: SNF Date Signed: 07/05/2017 05:00 PM Electronically Signed By:GRACY Newberry
--- NOTE | 2017-07-05 18:15 | HOSPPROG ---
Hospitalist Progress Note Assessment/Plan: Assessment: 62-year-old female p/w acute encephalopathy in setting of acute alcohol withdraw # Alcohol withdrawal. (Acute), evidenced by tremulousness, anxiety, tachycardia , found confused in [employer] - resolved, mild tremulousness if reportedly baseline - counseled EtOH cessation, drinks 2L/day # Acute encephalopathy. Although patient interacting better today, remains significantly impaired w/ cog eval demonstrating 06/15 on MMSE - unclear whether she has any baseline deficits, likely some element of ongoing acute impairment at this time - patient will likely require/benefit from SNF w/ physical and cog therapies # Hager bite hands/feet. S/p warming w/ some reperfusion edema and pain - reintroduced NSAIDs, gauge whether we can stop opiates - resulting in significant debility and difficulty ambulating, may require SNF # GRACIELA. Likely 2/2 hypovolemia in setting of exposure, improving s/p IVF - resolved # Hyponatremia. Acute, 2/2 hypovolemia, off IVF # Alcoholic hepatitis. Likely 2/2 EtOH, cont to monitor - avoid tylenol # HCV. Unclear whether she has known diagnosis, will refer to ID on discharge # Hypothyroidism. Cont synthroid, uptitrated # Wounds. POA, see exam for locations including shoulder tongue arms legs buttock sacrum and toes. Patient with history of multiple falls and injuries. - Wound Care has been consulted # Falls. Chronic, related to patient's alcoholism and withdrawal. Fall precautions and bed alarm. - PT/OT evals, recommend SNF, patient is unsafe to DC to street at this point # COPD without exacerbation. PRN duoneb # Raynauds. Chronic, patient continues to have erythema and discoloration at the distal digits despite rewarming. # History of esophagitis. PPI # Bipolar disorder. Unclear type, chronic, seoquel listed on home medications however patient denied taking any. - no current mell # Underweight - bmi 18.8 - 2/2 etoh dependence and poor nutritional intake. dietary consulted. # HTN. Chronic, restart lisinopril and cont metop tart 12.5 bid # SVT. Acute, likely provoked by EtOH withdraw, chemically cardioverted w/ dilt - started metop tart 12.5 to suppress Diet. Reg as florian PPx. High risk, lovenox 40 Code. Full Dispo. ADD uncertain, ongoing deconditioning and debility, unsafe to DC Subjective: mild pain in hands, tremulous at baseline Objective: Vital Signs Temp Pulse Resp BP Pulse Ox 36.8 C 93 16 149/68 H 93 07/05/17 16:20 07/05/17 16:20 07/05/17 16:20 07/05/17 16:20 07/05/17 16:20 Laboratory Results 07/02/17 06:00 07/05/17 04:30 07/04/17 07/05/17 07/06/17 05:59 05:59 05:59 Intake Total 3589 1800 250 Output Total 1975 900 600 Balance 1614 900 -350 PT 14.6 SEC (12.0-15.0) 07/02/17 06:00 INR 1.12 (0.83-1.16) 07/02/17 06:00 - Pending Discharge Pending Discharge Within 48 Hours: Yes Pending Discharge Date: 07/07/17 Pending Discharge Time: 11:00 - Physical Exam Constitutional: no apparent distress, not in pain, chronically ill appearing, uncomfortable Cardiovascular: regular rate and rhythym, no murmur, rub, or gallop, edema ( trace hands/feet) Respiratory: No reduced air movement, No expiratory wheeze, No inspiratory crackles (bases), No bronchial breath sounds, No respiratory distress Gastrointestinal: normoactive bowel sounds, soft, non-tender abdomen, no palpable masses, No distension Skin: other (blanching bilat hand, legs) Neurologic: AAOx3, sensation intact bilaterally, weakness (4/5 motor bilat LE), other (tremulous upper ext) Psychiatric: not anxious, flat affect, poor memory, other (concentration 7/7), No agitated ICD10 Worksheet Patient Problems: Problems Problem Status Onset Upper GI bleed Acute Alcohol withdrawal delirium Acute
[2017-07-05] MEDS ORDERED: LEVOTHYROXINE 112 MCG TAB PO SCH (18:18)
[2017-07-05] MEDS: QUEtiapine FUMARATE 300 MG TAB PO SCH (21:46)
[2017-07-06 04:59] LABS: PLATELET COUNT 224 10^3/uL (150-400)
[2017-07-06] MEDS: LEVOTHYROXINE 125 MCG TAB PO SCH (05:57)
[2017-07-06] MEDS: METOPROLOL TARTRATE 25 MG TAB PO SCH ×2 (09:15→20:24)
[2017-07-06] MEDS: NAPROXEN SODIUM 220 MG TAB PO SCH ×2 (09:15→20:23)
[2017-07-06] MEDS: ENOXAPARIN 40 MG/0.4 ML SYR SC SCH (09:16)
[2017-07-06] MEDS: oxyCODONE IR 5 MG TAB PO PRN ×2 (09:16→14:49)
[2017-07-06] MEDS: LISINOPRIL 20 MG TAB PO SCH (09:16)
[2017-07-06] MEDS: BUDESONIDE/FORMOTEROL 160/4.5 60 PUFFS/MDI IH SCH ×2 (09:29→19:56)
--- NOTE | 2017-07-06 16:08 | ASMTCMCOM ---
CM Note CM Note Notes: Today SWer completed triggering PASRR and faxed to [facility] in [place]. See hard chart for copy. Await approval for SNF admission. Please see [employer] for referrals made and status of acceptances. CM to follow for d/c POC. Date Signed: 07/06/2017 04:08 PM Electronically Signed By:Yanira Castro LCSW
--- NOTE | 2017-07-06 17:08 | HOSPPROG ---
Hospitalist Progress Note Assessment/Plan: #. Alcohol Withdrawal - mild tremor but she states she has been diagnosed with essential tremor in past. Continue prn lorazepam. #. Anemia - trend down in Hgb. Reassess in AM. Clinically without bleeding. #. Ecephalopathy - appears to be clearing but uncertain baseline. Consider repeat cognitive testing next week to assess for improvements. #. Hager bite/Wounds - no significant pain noted today. Wound care. #. GRACIELA - resolved. #. Hyponatremia - resolved #. RLE Edema - ultrasound in AM. #. HTN - stable with metoprolol and lisinopril. #. COPD - stable. #. Chronic Hep C - need to discuss further as to whether she is aware of this diagnosis. Consider ID consultation as outpatient. #. Hypothyroidism - Levothyroxine. #. Bipolar Disorder - seroquel #. DVT Prophylaxis - Lovenox #. Dispo - she lives alone. I do not think she has much family support. Subjective: No acute events overnight. No pain complaints during my evaluation. She pulled out her IV. She was able to tell me the year and location appropriately. Objective: Vital Signs Temp Pulse Resp BP Pulse Ox 36.9 C 107 H 20 140/73 H 99 07/06/17 15:40 07/06/17 15:40 07/06/17 15:40 07/06/17 15:40 07/06/17 15:40 Laboratory Results 07/06/17 04:10 07/06/17 04:10 07/05/17 07/06/17 07/07/17 05:59 05:59 05:59 Intake Total 1800 770 Output Total 900 1200 Balance 900 -430 PT 14.6 SEC (12.0-15.0) 07/02/17 06:00 INR 1.12 (0.83-1.16) 07/02/17 06:00 - Physical Exam Constitutional: no apparent distress, not in pain Cardiovascular: regular rate and rhythym, systolic murmur Respiratory: no respiratory distress, clear to auscultation Gastrointestinal: normoactive bowel sounds, soft, non-tender abdomen, no palpable masses Genitourinary: No rollins in urethra Neurologic: AAOx3, CN II-XII Intact, No asterixes ICD10 Worksheet Patient Problems: Problems Problem Status Onset Alcohol withdrawal delirium Acute Upper GI bleed Acute
[2017-07-06] MEDS: QUEtiapine FUMARATE 300 MG TAB PO SCH (20:24)
[2017-07-07] MEDS: LEVOTHYROXINE 125 MCG TAB PO SCH (06:13)
[2017-07-07] MEDS: BUDESONIDE/FORMOTEROL 160/4.5 60 PUFFS/MDI IH SCH ×2 (08:38→19:49)
[2017-07-07 09:09] LABS: PLATELET COUNT 223 10^3/uL (150-400)
[2017-07-07] MEDS: METOPROLOL TARTRATE 25 MG TAB PO SCH ×2 (09:38→20:24)
[2017-07-07] MEDS: ENOXAPARIN 40 MG/0.4 ML SYR SC SCH (09:39)
[2017-07-07] MEDS: LISINOPRIL 20 MG TAB PO SCH (09:39)
[2017-07-07] MEDS: NAPROXEN SODIUM 220 MG TAB PO SCH ×2 (09:39→20:23)
--- NOTE | 2017-07-07 16:45 | HOSPPROG ---
Hospitalist Progress Note Assessment/Plan: #. Alcohol Withdrawal - mild tremor but she states she has been diagnosed with essential tremor in past. No lorazepam currently ordered. #. Anemia - Continued trend downward. Clinically without bleeding. Reassess again in AM. #. Ecephalopathy - appears to be clearing but uncertain baseline. Consider repeat cognitive testing next week to assess for improvements. #. Hager bite/Wounds - no significant pain noted today. Wound care. #. RLE Edema - No DVT on ultrasound. I would not exclude cellulitis. Will reassess again tomorrow. #. HTN - stable with metoprolol and lisinopril. #. COPD - stable. #. Chronic Hep C - need to discuss further as to whether she is aware of this diagnosis. Consider ID consultation as outpatient. #. Hypothyroidism - Levothyroxine. #. Bipolar Disorder - seroquel #. DVT Prophylaxis - Lovenox #. Dispo - she lives alone. I do not think she has much family support. I think placement may be helpful. Will review with case management. Subjective: F/U on RLE edema. We discussed no DVT seen on U/S. No pain or fevers noted. She states it looks stable in regards to the degree of erythema. No chronic swelling. Objective: Vital Signs Temp Pulse Resp BP Pulse Ox 36.9 C 91 20 162/75 H 96 07/07/17 15:49 07/07/17 15:49 07/07/17 15:49 07/07/17 15:49 07/07/17 15:49 Laboratory Results 07/07/17 08:54 07/07/17 08:54 07/06/17 07/07/17 07/08/17 05:59 05:59 05:59 Intake Total 770 300 750 Output Total 1200 1100 600 Balance -430 -800 150 PT 14.6 SEC (12.0-15.0) 07/02/17 06:00 INR 1.12 (0.83-1.16) 07/02/17 06:00 - Physical Exam Constitutional: no apparent distress, unkempt Cardiovascular: regular rate and rhythym, no murmur, rub, or gallop Respiratory: no respiratory distress, no rales or rhonchi Gastrointestinal: normoactive bowel sounds, soft, non-tender abdomen Genitourinary: No rollins in urethra Skin: warm, other (mild erythema on foot and to mid-correa, warm to touch.) Psychiatric: not anxious ICD10 Worksheet Patient Problems: Problems Problem Status Onset Alcohol withdrawal delirium Acute Upper GI bleed Acute
[2017-07-07] MEDS: QUEtiapine FUMARATE 300 MG TAB PO SCH (20:24)
[2017-07-08] MEDS: LEVOTHYROXINE 125 MCG TAB PO SCH (04:53)
[2017-07-08] MEDS: METOPROLOL TARTRATE 25 MG TAB PO SCH ×2 (08:17→20:27)
[2017-07-08] MEDS: ENOXAPARIN 40 MG/0.4 ML SYR SC SCH (08:18)
[2017-07-08] MEDS: LISINOPRIL 20 MG TAB PO SCH (08:18)
[2017-07-08] MEDS: NAPROXEN SODIUM 220 MG TAB PO SCH ×2 (08:19→20:26)
[2017-07-08] MEDS: BUDESONIDE/FORMOTEROL 160/4.5 60 PUFFS/MDI IH SCH ×2 (08:54→20:52)
--- NOTE | 2017-07-08 16:34 | ASMTCMCOM ---
CM Note CM Note Notes: PASSR complete.Multiple medical problems. Therapies recommending SNF. [facility] accepting patient . Spoke with patient who states she is ok with that . Likely to dc tomorrow. CM to follow. Date Signed: 07/08/2017 04:33 PM Electronically Signed By:Ingrid Hinton RN
[2017-07-08] MEDS: PANTOPRAZOLE SODIUM 40 MG TAB PO SCH (17:31)
[2017-07-08] MEDS: QUEtiapine FUMARATE 300 MG TAB PO SCH (20:26)
[2017-07-08] MEDS ORDERED: METOPROLOL TARTRATE 25 MG TAB PO ONE (21:45)
[2017-07-08] MEDS ORDERED: CALCIUM CARBONATE 500 MG CHEWABLE TAB PO PRN (21:48)
--- NOTE | 2017-07-08 22:04 | HOSPPROG ---
Hospitalist Progress Note Assessment/Plan: #. Alcohol Withdrawal - mild tremor but she states she has been diagnosed with essential tremor in past. No lorazepam currently ordered. Stable. #. Anemia - Continued trend downward. Clinically without bleeding. Stable on repeat today. #. Ecephalopathy - appears to be clearing but uncertain baseline. I think she is likely now at [facility]. #. Hager bite/Wounds - no significant pain noted today. Wound care. #. RLE Edema - No DVT on ultrasound. No fracture on x-ray. Possibly mild cellulitis as warm and erythematous on exam. Will start PO keflex. #. HTN - stable with metoprolol and lisinopril. #. COPD - stable. #. Chronic Hep C - patient aware of this diagnosis. She states she was treated with interferon in the distant past and prior viral studies have been unremarkable. #. Hypothyroidism - Levothyroxine. #. Bipolar Disorder - seroquel #. DVT Prophylaxis - Lovenox #. Dispo - she lives alone. I do not think she has much family support. ALTAF completed today and patient has been accepted to [facility]. I would anticipate she could transfer there in the next 1-2 days. Subjective: F/U RLE edema. No new complaints today. She states she does not use oxygen at home but has needed during the day in the hospital. I took her off of oxygen today and stayed in mid-90's. Objective: Vital Signs Temp Pulse Resp BP Pulse Ox 37.1 C 100 14 180/91 H 96 07/08/17 20:00 07/08/17 20:00 07/08/17 20:53 07/08/17 20:00 07/08/17 20:53 Laboratory Results 07/08/17 19:51 07/07/17 08:54 07/07/17 07/08/17 07/09/17 05:59 05:59 05:59 Intake Total 300 1400 740 Output Total 1100 1500 950 Balance -800 -100 -210 PT 14.6 SEC (12.0-15.0) 07/02/17 06:00 INR 1.12 (0.83-1.16) 07/02/17 06:00 - Physical Exam Constitutional: no apparent distress Cardiovascular: regular rate and rhythym, no murmur, rub, or gallop, edema (RLE) Respiratory: no respiratory distress, no rales or rhonchi Gastrointestinal: normoactive bowel sounds, soft, non-tender abdomen Genitourinary: No rollins in urethra Skin: erythema (RLE) Psychiatric: No anxious ICD10 Worksheet Patient Problems: Problems Problem Status Onset Alcohol withdrawal delirium Acute Upper GI bleed Acute
[2017-07-08] MEDS: ONDANSETRON 4 MG/2 ML VIAL IVP PRN (22:21)
[2017-07-08] MEDS: CEPHALEXIN 500 MG CAP PO SCH (22:21)
[2017-07-09] MEDS: LEVOTHYROXINE 125 MCG TAB PO SCH (05:02)
[2017-07-09] MEDS: CEPHALEXIN 500 MG CAP PO SCH ×2 (05:02→13:08)
[2017-07-09] MEDS: NAPROXEN SODIUM 220 MG TAB PO SCH (08:08)
[2017-07-09] MEDS: METOPROLOL TARTRATE 25 MG TAB PO SCH (08:09)
[2017-07-09] MEDS: LISINOPRIL 20 MG TAB PO SCH (08:09)
[2017-07-09] MEDS: PANTOPRAZOLE SODIUM 40 MG TAB PO SCH (08:09)
[2017-07-09] MEDS: ENOXAPARIN 40 MG/0.4 ML SYR SC SCH (08:09)
[2017-07-09] MEDS: BUDESONIDE/FORMOTEROL 160/4.5 60 PUFFS/MDI IH SCH (09:29)
[2017-07-09] MEDS ORDERED: diphenhydrAMINE 25 MG CAP PO PRN (09:29)
--- NOTE | 2017-07-09 11:22 | PDHOMEO2F ---
Home Oxygen Face to Face Home Orders: I certify that a physician or a nurse practitioner or physician's account management assistant has had a [id number] encounter with this patient on the date of this order due to the diagnosis listed, which relates to the primary reason the patient requires home oxygen. Alternative treatments have been tried, or considered, and deemed ineffective. It is anticipated that supplemental oxygen will result in improvement with treatment. Home oxygen qualifying diagnosis: copd SpO2 on room air (%): 85 Frequency of home oxygen needed: continuous Home oxygen liters per minute: 2 Home oxygen delivery device: nasal cannula Concentrator: Yes E-tanks for mobility and back up: Yes If ordering portable O2, is the patient mobile in the home?: Yes I certify that, based on these findings, the home oxygen is medically necessary for this patient for the following length of time. Length of time home oxygen needed: 99 years
[2017-07-09 11:31] VITALS: BP 133/72; PULSE 82; RESP 16; TEMP 98; O2SAT 91
[2017-07-09] MEDS: oxyCODONE IR 5 MG TAB PO PRN (13:08)
--- NOTE | 2017-07-09 17:27 | ASDISCHSUM ---
Discharge Information Plan Status:SNF Medically Cleared to Leave:07/08/2017 Discharge Date:07/09/2017 02:30 PM CM D/C Disposition:Group Home Facility ADT D/C Disposition:Group Home Facility Projected Discharge Date:07/07/2017 11:00 AM Transportation at D/C:Wheelchair Van Discharge Delay Reason: Follow-Up Date:07/07/2017 11:00 AM Discharge Slot: Final Diagnosis: Placement Information Referral Type:*Detention/SNF Referral ID:[id number] Provider Name:Ramiro Dyer/TABITHA Jiménez Address 1:[address] Phone Number: Address 2: Fax Number: [facility]:[place] Selection Factors: State:[place] Patient Contact Information Contact Name:KEYYBMICHAEL Relationship:Friend Address: Work Phone: [facility]:[place] Alternate Phone: [facility] Code:[place] Email: Financial Information Financial Class:Medicare Advantage Plans Primary Plan Desc:[facility] ADVANTAGE PLANS Primary Plan Number:[id number] Secondary Plan Desc: Secondary Plan Number: Assessment Information [facility] CM Progress Note CM Note CM Note Notes: 62 year old female admitted for encephalopathy, ETOH W/D, falls. She has a hx of ETOH 1L wine/day, W/D, Sz, smoker, Bipolar, COPD, Raynaud's. CM to follow for discharge needs. Date Signed: 07/02/2017 09:44 AM Electronically Signed By:Mary Rushing LCSW [facility] CM Progress Note CM Note CM Note Notes: I called patient's friend (listed in chart) Surjit Palmer. Patient has been too drowsy and confused to talk today. Per Surjit, he and patient "have some things to talk about." He made it seem like they have not been spending much time together lately but that another neighbor had informed him of her hospitalization. When I asked if she had any family, he said that she had a brother in [place] (no contact info) and that her mother had a few weeks ago. He wasn't sure if that was contributing to her drinking. He did say, "she takes her pills with wine." Regarding discharge, Surjit said that he does not drive anymore after a CVA a few months ago, but that he could accompany patient home in a cab if necessary. It's too early to determine d.c needs - initial PT shanti recommends SNF d/t patient's lack of stability on her feet. When she is able to have a conversation, we can speak with her about this and also about her drinking. Date Signed: 07/03/2017 03:00 PM Electronically Signed By:Chelle Burroughs RN [facility] CM Progress Note CM Note CM Note Notes: CM met w/ pt for dispo planning. Therapies are recommending SNF. Pt is agreeable to going to SNF. Pt would like her first choice to be [facility] and her second choice [facility]. Referrals sent. CM started PASRR. CM was unable to complete PASRR because SPL is in the room. CM to follow. Plan: SNF Date Signed: 07/05/2017 05:00 PM Electronically Signed By:GRACY Newberry [facility] CM Progress Note CM Note CM Note Notes: Today SWer completed triggering PAS and faxed to Cassandra Dorantes in [place]. See hard chart for copy. Await approval for SNF admission. Please see [employer] for referrals made and status of acceptances. CM to follow for d/c POC. Date Signed: 07/06/2017 04:08 PM Electronically Signed By:Yanira Castro LCSW [facility] CM Progress Note CM Note CM Note Notes: PASSR complete.Multiple medical problems. Therapies recommending SNF. [facility] accepting patient . Spoke with patient who states she is ok with that . Likely to dc tomorrow. CM to follow. Date Signed: 07/08/2017 04:33 PM Electronically Signed By:Ingrid Hinton RN Case Management Discharge Plan Note Case Management Discharge Discharge Order Complete? Answers: Yes Patient to Obtain Answers: Other Notes: Ramiro Dyer Medications Transportation Arranged Answers: Other Notes: arranged and paid for b y [employer] [facility] will Pick (Date 07/09/2017 02:00 PM & Time) Case Management Transport Answers: Yes Form Complete Faxed Final Orders Answers: Yes Agency/Facility Transfer Answers: Yes Report Printed & Faxed to Receiving Agency Discharge Comments Notes: 07/09/2017 Case Management Note Faxed d/c paperwork via [employer]. Sent hard copies with pt. Ramiro Dyer arranged transport. Case Management provided clothes. Report called by RN. Date Signed: 07/09/2017 10:42 AM Electronically Signed By:Tammy Wiggins RN Intervention Information Intervention Type:*IM-Signed Date of Service:07/09/2017 10:31 AM Patient Type:Inpatient Staff Member:Trish Piña Hours: Discipline: Severity: Comment:
--- NOTE | 2017-07-09 19:38 | GDS ---
[f rep st] DISCHARGE SUMMARY DISCHARGE DIAGNOSES: Include: 1. Acute encephalopathy thought secondary to potential alcohol withdrawal. 2. Lower extremity cellulitis. 3. Hypertension. 4. Chronic obstructive pulmonary disease. 5. Hepatitis C. 6. Bipolar disorder. 7. Hypothyroidism. 8. Suspected frostbite. HISTORY OF PRESENT ILLNESS: This is a 62-year-old female who presents on 07/01/2017, with complaints of encephalopathy. For details of the patient's initial presentation, please see the History and Ph ysical dated 07/01/2017. CONSULTATIVE SERVICES: Include Wound Care. PROCEDURES: None. HOSPITAL COURSE: By issue: 1. Acute alcohol withdrawal. Patient had tremulousness, anxiety, tachycardia, all of which she rece ived treatment with resolution of her acute encephalopathy. 2. Suspected frostbite wounds. Patient received warming and reperfusion, with p.r.n. pain medicatio ns for pain and wound care. The patient will continue to receive wound care per at dispos ition. 3. Acute kidney injury, which resolved status post IV fluids. 4. Hypovolemic hyponatremia, which resolved after IV fluids. 5. Alcoholic hepatitis. 6. Lower extremity cellulitis. Patient was initiated on oral antibiotics. Will continue to follow in the outpatient setting with her PCP. 7. COPD without exacerbation. The patient intermittently needs oxygen with exertion. Continue her outpatient management. DISCHARGE MEDICATIONS: Please reference the med rec printed on 07/09/2017. DISPOSITION: Patient being discharged to [facility] for rehabilitation and strengthening prior to returning home. I spent greater than 30 minutes in the planning and coordination of this discharge. /[id number]/MODL
== END 2017-07-09 14:30 | DRG 896 ==
LOC: EDUNIT# → F2N 07-02 02:30 → F2W 07-04 22:11
PROVIDERS: ADMIT Family Medicine; ATTEND Family Medicine
DX: F10.232 Alcohol dependence with withdrawal with perceptual disturbance (principal); G93.40 Encephalopathy, unspecified; F31.9 Bipolar disorder, unspecified; L03.116 Cellulitis of left lower limb; E87.1 Hypo-osmolality and hyponatremia; N17.9 Acute kidney failure, unspecified; R63.6 Underweight; Z68.1 Body mass index [BMI] 19.9 or less, adult; T33.52 Superficial frostbite of hand; T33.829A Superficial frostbite of unspecified foot, initial encounter; X31.XXXA Exposure to excessive natural cold, initial encounter; L89.312 Pressure ulcer of right buttock, stage 2; L89.322 Pressure ulcer of left buttock, stage 2; B18.2 Chronic viral hepatitis C; E03.9 Hypothyroidism, unspecified; I10 Essential (primary) hypertension; J44.9 Chronic obstructive pulmonary disease, unspecified; F17.210 Nicotine dependence, cigarettes, uncomplicated; Z91.81 History of falling
CPT/HCPCS: 84480-90; 92507-GN; 92523-GN; 96374; 97110-GP; 97116-GP; 97162-GP; 97165-GO; 97530-GP; 97535-GO; G0472; G0480; G8978-GP-CL; G8979-GP-CI; G9165-GN-CK; G9166-GN-CI; J1650; J2060; J2405; J3411

== ENCOUNTER 2017-07-12 14:00 | Emergency (ER) | payer OTHER ==
[2017-07-12 14:15] VITALS: TEMP 97.3
--- NOTE | 2017-07-12 15:18 | EDPHY ---
H & P Time Seen by Provider: 07/12/17 15:04 HPI/ROS: CHIEF COMPLAINT: Wound care, placement HISTORY OF PRESENT ILLNESS: Patient is a 62-year-old female who presents to the emergency department requesting placement for wound care. Patient was seen in the emergency department 07/01/2017 with complaints of fall and encephalopathy. She was thought to have suspected frostbite wounds and acute alcohol withdrawal. Please refer to her H and P from 07/01/2017. Patient was discharged from [facility] on 07/09/2017. She was discharged to [facility]. On Saturday she left [facility] and states that she had 1 alcoholic beverage. She saw her primary care physician Dr. Tammy Nelson and home health care was arranged. She is scheduled to have home healthcare today at 3:00 p.m.. However, she decided to come the emergency department instead. She wants placement back in a nursing facility, preferably [facility]. REVIEW OF SYSTEMS: My complete review of systems is negative except as mentioned in the HPI. Past Medical/Surgical History: Includes bipolar disorder, mixed connective tissue disorder, COPD, hypertension , hypothyroidism, chronic pain, hyperlipidemia, pneumonia, hepatitis-C Social history: The patient drinks alcohol occasionally. She has a history of alcohol abuse withdrawal. Social History: The patient drinks alcohol. Smoking Status: Current some day smoker Physical Exam: GENERAL: Well-appearing, in no acute distress, alert. HEENT: Eyes normal to inspection, normal pharynx, no signs of dehydration. NECK: [No thyromegaly, no lymphadenopathy, supple. RESPIRATORY: Clear to auscultation bilaterally, no rales, rhonchi or wheezing. CVS: Regular rate and rhythm, no rubs, murmurs, or gallops. ABDOMEN: Soft, nontender, nondistended, no organomegaly. BACK: Normal to inspection, no CVA tenderness. SKIN: Normal color, no rash, warm, dry. No pallor. The patient's left forearm has a dressing in place. I removed this. The wound appears dry and intact. Appears to be healing well. There is no surrounding erythema or warmth. The patient also has 3 dressings on her buttocks. These were last changed on 07/09/2017. The surrounding skin appears to be healing well. There is no warmth or erythema. EXTREMITIES: No pedal edema, no calf tenderness, no Homans sign or cords, no joint swelling. NEURO/PSYCH: Alert and oriented x3, normal mood and affect, normal motor sensory exam. No obvious cranial nerve deficit. Constitutional: Initial Vital Signs Temperature (C) 36.3 C 07/12/17 14:09 Heart Rate 99 07/12/17 14:09 Respiratory Rate 16 07/12/17 14:09 Blood Pressure 167/97 H 07/12/17 14:09 O2 Sat (%) 98 07/12/17 14:09 O2 Delivery Mode Room Air Allergies/Adverse Reactions: hydrochlorothiazide Allergy (Mild, Verified 07/01/17 19:29) Home Medications: Medication Instructions Recorded QUEtiapine FUMARATE [Seroquel 300 mg PO HS 09/21/14 300mg (*)] Levothyroxine [Synthroid 112 mcg 112 mcg PO DAILY06 11/05/14 (*)] Meloxicam [Mobic 7.5 mg] 7.5 mg PO BID 11/05/14 Albuterol [Proventil Inhaler HFA 1 - 2 puffs IH Q4H PRN 07/02/17 (*)] Budesonide/Formoterol 160/4.5 1 puffs IH BID 07/02/17 [Symbicort 160-4.5 Mcg Inh (*)] Lisinopril [Zestril 20 mg (*)] 20 mg PO DAILY 07/02/17 Cephalexin [Keflex (*)] 500 mg PO Q6HRS #14 cap 07/09/17 Metoprolol Tartrate [Lopressor 25 12.5 mg PO BID #60 tab 07/09/17 mg (*)] Medical Decision Making ED Course/Re-evaluation: In the emergency department case management was involved. They contacted both [facility] and [facility]. The patient is unable to go back to nursing care facility. However, we will be able to continue home nursing care. I discussed this with the patient. She agrees with this plan. Her dressings were changed in the emergency department. I discussed the plan with the on-call physician for Dr. Tammy Nelson. She agrees with the plan. The patient was given warnings prior to leaving. She will return with worsening symptoms. Differential Diagnosis: My differential includes but is not limited to frostbite wound,, wound degradation, cellulitis, abscess, bacteremia, sepsis, intoxication Departure - Departure Disposition: Home, Routine, Self-Care Clinical Impression: Skin breakdown Frostbite Qualifiers: Encounter type: subsequent encounter Qualified Code(s): T33.90XD - Superficial frostbite of unspecified sites, subsequent encounter Condition: Good Instructions: Chronic Wounds (ED) Additional Instructions: Return with increasing wound pain, redness, swelling, fever or any other concerns. Referrals: Tammy Nelson MD [Primary Care Provider] - 3-4 days, if not improved
--- NOTE | 2017-07-12 16:13 | ASMTLACE ---
LACE Length of stay for Answers: Less than 1 day current admission Acuity / Level of Answers: No Care: Did the patient have an inpatient admission? Comorbidities - select Answers: History of falls all that apply Moderate or severe liver or renal disease # of Emergency department Answers: 1-2 visits in the last 6 months Social determinants Answers: History of substance abuse (ETHO, street drugs, prescription drugs, etc.) Score: 11 Date Signed: 07/12/2017 04:12 PM Electronically Signed By:Yue Geiger RN
[2017-07-12 16:32] VITALS: BP 152/88; PULSE 88; RESP 18; O2SAT 93
--- NOTE | 2017-07-12 17:00 | ASMTCMCOM ---
CM Note CM Note Notes: Met with patient who arrives to ER via cab requesting SNF placement at [facility]. Patient was discharged from this hospital earlier this week to [facility]. Patient admits to leaving [facility] 2 days ago because she wanted to go home. She reports that she had a glass of wine that evening and is "trying not to drink anymore". She admits to her strong history of alcoholism, denies history of DT's or seizures with alcohol withdrawal. Patient denies desire for ETOH detox or rehab resources. Patient did follow up with Dr. Nikki Delarosa PCP after leaving [facility] and HH services were arranged for patient to begin today. for RN/wound care. Patient admits that she called HH today and cancelled a 3:00 PM visit and decided to come to the ER instead. I have reached out to Sangeeta at [facility] and confirmed that they do not have any SNF beds available AND that because patient left [facility], patient would need a new PASRR (Level 2) completed before she could consider SNF placement. I hav eexplained this situation to patient and she verbalizes understanding. I have asked her if she feels safe to return home and have HH resume tomorrow. She tells me she does. I have contacted Jana at [facility] and confirmed that patient is still able to continue HH services. Marlen from [facility] will contact patient tonight or tomorrow to confirm a visit time for tomorrow. Patient has had her wounds/dressings evaluated here in the ER and I have informed HH of this Plan to return home tonight and resume HH care was discussed with the patient and detailed instructions have been written in her discharge note. I have encouraged patient to contact local grocery stores for home delivery and patient confirms that she has the means to do so. Patient discharged to self care and has chosen to call and take a cab home Date Signed: 07/12/2017 04:59 PM Electronically Signed By:Yue Geiger RN
--- NOTE | 2017-07-14 18:53 | ASMTCMCOM ---
CM Note CM Note Notes: 07/14/17: Received a call from Marlen Bowers ([phone]), RN with [facility] ([phone]). Pt received HC RN for wound care and HC PT. Per Marlen, Physical Therapy went to pt's home for first visit today and found patient tremulous r/t from ETOH withdrawal. Marlen called pt's PCP Dr. Tammy Delarosa's office and the on-call physician who recommended patient come to ED for ETOH withdrawal s/sx treatment. Marlen called and left a voicemail with patient, recommending she come to the ED. See previous CM Progress Notes from 07/12/17 for further information regarding patient's recent hospital admission (07/01-07/09/17), discharge to [facility], her leaving [facility], etc. Marlen says pt's neighbor, Surjit, has all of pt's alcohol (pt reportedly drinks 2L wine/day) and is checking in on patient, assisting as much as possible. Pt reportedly only has cereal, milk and coffee for food in her house. Marlen plans to set up Meals on Wheels for patient but can't call until tomorrow. Since pt left [facility], patient would require having another PASSR (Level 2, pt has hx of bipolar d/o) completed and still may not accept. Patient has a brother in [place] but per Marlen they do not have a close relationship. If patient presents to the ED, please contact CM, [facility] and/or pt's PCP Dr. Tammy Delarosa. Date Signed: 07/14/2017 06:52 PM Electronically Signed By:Yanira France RN
== END 2017-07-12 16:34 | disposition home or self-care (01) ==
DX: T33.90XD Superficial frostbite of unspecified sites, subsequent encounter (principal); L98.9 Disorder of the skin and subcutaneous tissue, unspecified; J44.9 Chronic obstructive pulmonary disease, unspecified; I10 Essential (primary) hypertension; F17.200 Nicotine dependence, unspecified, uncomplicated; X31.XXXD Exposure to excessive natural cold, subsequent encounter

== ENCOUNTER 2017-11-11 06:59 | Emergency (ER) | payer OTHER ==
[2017-11-11] MEDS ORDERED: LIDOCAINE 4%/MENTHOL 1% PATCH TD ONE (07:43)
--- NOTE | 2017-11-11 07:44 | EDPHY ---
H & P Stated Complaint: NECKPAIN AFTER MOVEMENT TO RIGHT SIDE Time Seen by Provider: 11/11/17 07:30 HPI/ROS: CHIEF COMPLAINT: Neck pain HISTORY OF PRESENT ILLNESS: 62-year-old female with alcoholism presents with neck pain. She was lying on the couch watching TV 4 hr ago, turned her head to the right and had immediate onset of severe neck pain. The pain increases with movement. The neck pain persisted throughout the morning, which prompted her to call EMS. Etoh last evening, none today. She denies recent fall or injury. No headache, numbness or weakness. No prior neck problems. REVIEW OF SYSTEMS: complete 10 point ROS negative except as noted in the HPI - Personal History Current Tetanus/Diphtheria Vaccine: Yes Current Tetanus Diphtheria and Acellular Pertussis (TDAP): Yes Tetanus Vaccine Date: Within 5 years. - Medical/Surgical History Hx Asthma: No Hx Chronic Respiratory Disease: Yes Hx Diabetes: No Hx Cardiac Disease: No Hx Renal Disease: No Hx Cirrhosis: No Hx Alcoholism: Yes Hx HIV/AIDS: No Hx Splenectomy or Spleen Trauma: No Other PMH: COPD, HTN, mixed connective tissue disorder, hypothyroid, chronic pain, HL, reports bipolar, etoh, smoker, hep c+,pneumonia,psych - Social History Smoking Status: Former smoker - Physical Exam Exam: General Appearance: Alert, pleasant Head: Abrasions on central forehead and nose Eyes: Pupils equal and round, no conjunctival pallor or injection ENT, Mouth: Mucous membranes moist, no facial geo tenderness Neck: No midline tenderness, range of motion causes right-sided neck pain Respiratory: no chest wall tenderness, lungs are clear to auscultation Cardiovascular: Regular rate and rhythm Gastrointestinal: Abdomen is soft and nontender Neurological: Alert, oriented x3, cranial nerves II through XII intact, motor 5 /5, sensory grossly intact Skin: Warm and dry Extremities: nontender, no pedal edema Psychiatric: Mood and affect normal Constitutional: Initial Vital Signs Temperature (C) 36.5 C 11/11/17 06:59 Heart Rate 98 11/11/17 06:59 Respiratory Rate 15 11/11/17 06:59 Blood Pressure 144/92 H 11/11/17 06:59 O2 Sat (%) 94 11/11/17 06:59 O2 Delivery Mode Room Air O2 (L/minute) 1 Allergies/Adverse Reactions: hydrochlorothiazide Allergy (Mild, Verified 07/01/17 19:29) Home Medications: Medication Instructions Recorded QUEtiapine FUMARATE [Seroquel 300 mg PO HS 09/21/14 300mg (*)] Levothyroxine [Synthroid 112 mcg 112 mcg PO DAILY06 11/05/14 (*)] Meloxicam [Mobic 7.5 mg] 7.5 mg PO BID 11/05/14 Lisinopril [Zestril 20 mg (*)] 20 mg PO DAILY 07/02/17 Metoprolol Tartrate [Lopressor 25 12.5 mg PO BID #60 tab 07/09/17 mg (*)] Medical Decision Making - Diagnostics Imaging Results: Cervical Spine CT 11/11/17 07:41 Impression: 1. Negative for intracranial bleed or other posttraumatic abnormality. 2. Atrophy. CT Cervical Spine Without Contrast History: Trauma. Technique: Multislice helical CT through the cervical spine without contrast from the skull base to T1. Soft tissue and bone evaluation is performed. Sagittal and coronal reconstructions are obtained and reviewed. Dose reduction techniques were utilized. Findings: There is reversal of the normal cervical curvature, otherwise, the bone alignment is anatomic. No fracture or dislocation is identified. The relationship between skull base and C1 is normal. The C1-C2 articulation is normal. The odontoid process is normal. The cervical thoracic junction is normal. Soft tissue window evaluation does not show evidence of epidural or prevertebral hematoma. Multilevel degenerative changes are seen with disk space loss and bony hypertrophic changes extending from C3 C3-C4 to the C7-T1 level. Impression: 1. Negative for fracture. 2. Reversal of the cervical curvature suggests muscle spasm. 3. Degenerative changes are noted. Results called and discussed with STEVEN ZULUAGA M.D. on 11/11/2017 at 8:[address] 11/11/17 07:52 Impression: 1. Negative for intracranial bleed or other posttraumatic abnormality. 2. Atrophy. CT Cervical Spine Without Contrast History: Trauma. Technique: Multislice helical CT through the cervical spine without contrast from the skull base to T1. Soft tissue and bone evaluation is performed. Sagittal and coronal reconstructions are obtained and reviewed. Dose reduction techniques were utilized. Findings: There is reversal of the normal cervical curvature, otherwise, the bone alignment is anatomic. No fracture or dislocation is identified. The relationship between skull base and C1 is normal. The C1-C2 articulation is normal. The odontoid process is normal. The cervical thoracic junction is normal. Soft tissue window evaluation does not show evidence of epidural or prevertebral hematoma. Multilevel degenerative changes are seen with disk space loss and bony hypertrophic changes extending from C3 C3-C4 to the C7-T1 level. Impression: 1. Negative for fracture. 2. Reversal of the cervical curvature suggests muscle spasm. 3. Degenerative changes are noted. Results called and discussed with STEVEN ZULUAGA M.D. on 11/11/2017 at 8:39 Imaging: Discussed imaging studies w/ call or contact centre coach Radiologist, I viewed and interpreted images myself ED Course/Re-evaluation: This patient presents with neck pain. She denies possibility of fall or recent trauma, but she has facial abrasions that suggest a recent fall. Lidocaine patch placed for pain control. CT of the head and cervical spine ordered because of suspicious for recent fall, head injury and neck pain. No signs of other injuries. Old medical record reviewed. She was recently discharged from home health care services because of noncompliance. She continues to drink heavy alcohol and not take her prescribed medications. 9:00 a.m.-laboratory and CT scan results discussed with the patient. Ethanol level 286, does not appear acutely intoxicated, patient encouraged to stop drinking. If she is able to ambulate with a steady gait, I feel that she is safe and stable for discharge home. Able to walk with a steady gait. Home via uber. Differential Diagnosis: Differential diagnosis includes though it is not limited to fracture, intracranial hemorrhage, pneumothorax, hemothorax, intra-abdominal hemorrhage. - Data Points Laboratory Results: Laboratory Results 11/11/17 06:55 11/11/17 06:55 Medications Given: Discontinued Medications Miscellaneous Medication (Icy Hot Lidocaine/Menthol 4%/1% Patch) 1 patch TD EDNOW ONE Stop: 11/11/17 07:44 Last Admin: 11/11/17 08:04 Dose: 1 patch Ondansetron HCl (Zofran) 4 mg IVP EDNOW ONE Stop: 11/11/17 08:08 Last Admin: 11/11/17 08:09 Dose: 4 mg Departure - Departure Disposition: Home, Routine, Self-Care Clinical Impression: Neck strain, Facial abrasion Condition: Good Instructions: Cervical Strain (ED), Abrasion (ED) Referrals: Andie Aguillon MD [Medical Doctor] - As per Instructions
[2017-11-11 07:50] LABS: PLATELET COUNT 270 10^3/uL (150-400)
[2017-11-11] MEDS ORDERED: ONDANSETRON 4 MG/2 ML VIAL IVP ONE (08:07)
[2017-11-11 09:35] VITALS: BP 146/83
--- NOTE | 2017-11-11 10:15 | ASMTCAGE ---
CAGE Do you feel you ought to Answers: Yes cut down on your drinking or drug use? Do people annoy you by Answers: No criticizing your drinking or drug use? Do you feel guilty about Answers: No your drinking or drug use? Do you drink or use drugs Answers: No first thing in the morning (Eye Thermostat Repairer)? Date Signed: 11/11/2017 10:14 AM Electronically Signed By:Yanira France RN
--- NOTE | 2017-11-11 11:55 | ASDISCHSUM ---
Discharge Information Plan Status:Home with No Needs Medically Cleared to Leave: Discharge Date:11/11/2017 10:37 AM CM D/C Disposition:Home, Routine, Self-Care ADT D/C Disposition:Home, Routine, Self-Care Projected Discharge Date:11/11/2017 10:37 AM Transportation at D/C:Taxicab Discharge Delay Reason: Follow-Up Date:11/11/2017 10:37 AM Discharge Slot: Final Diagnosis: Placement Information Patient Contact Information Contact Name:TERRYBUNTING Relationship:Friend Address: Work Phone: City:[place] Alternate Phone: State/[place] Code:[place] Email: Financial Information Financial Class:Medicare Advantage Plans Primary Plan Desc:[facility] ADVANTAGE PLANS Primary Plan Number:[id number] Secondary Plan Desc: Secondary Plan Number: Assessment Information CAGE Questionnaire CAGE Do you feel you ought to Answers: Yes cut down on your drinking or drug use? Do people annoy you by Answers: No criticizing your drinking or drug use? Do you feel guilty about Answers: No your drinking or drug use? Do you drink or use drugs Answers: No first thing in the morning ([employer])? Date Signed: 11/11/2017 10:14 AM Electronically Signed By:Yanira France RN [facility] Progress Note CM Rishi CM Note Notes: Pt presented to the ED via EMS from home for neck pain. Pt states she doesn't remember falling but has an abrasion on her forehead and nose. Pt is intoxicated and has a history of alcohol abuse. Spoke with patient about her alcohol abuse and pt states she is not interested in quitting drinking but does think she should drink less. Pt states she doesn't have a plan on how she will be able to cut down on her drinking. Pt offered resources on outpatient treatment options, pt declined, saying, "last time I was here I was given a bunch of numbers and information." Pt also has a history of bipolar disorder and states she takes Seroquel at night. Pt is not seen by a psychiatrist or counselor and is not interested in mental health resources. Pt's PCP is Dr Tammy Nelson ([phone]) and she prescribes pt's Seroquel. Pt states she does sometimes take her Seroquel even when she has been drinking, "which is the perfect storm." Pt strongly encouraged to not drink alcohol while taking her Seroquel and also encouraged to follow-up with Dr Nelson this week. Pt ready for discharge; pt's friend Surjit ([phone]) is able to come and meet pt here in the ED and ride with her home in a cab. Surjit doesn't drive due to history of a CVA. Surjit arrived to the ED and pt was discharged out to the cab via wheelchair. Surjit states he feels comfortable and safe with assisting pt into her house. CM available for further assistance. Date Signed: 11/11/2017 11:53 AM Electronically Signed By:Yanira France RN Intervention Information Intervention Type:Post Acute Communication Date of Service:11/11/2017 11:54 AM Patient Type:Emergency Room Staff Member:GEOFF France Sharon Hours:0.25 Discipline:County Historian Severity: Comment: Intervention Type:Substance Abuse Treatment Date of Service:11/11/2017 11:54 AM Patient Type:Emergency Room Staff Member:GEOFF France Sharon Hours:0.25 Discipline:County Historian Severity: Comment:Discussion; pt declined resources
[2017-11-11] MEDS ORDERED: PATCH REMOVAL 1 EA PATCH TD SCH (21:00)
== END 2017-11-11 10:37 | disposition home or self-care (01) ==
LOC: EDUNIT#
DX: S16.1XXA Strain of muscle, fascia and tendon at neck level, initial encounter (principal); S00.81XA Abrasion of other part of head, initial encounter; J44.9 Chronic obstructive pulmonary disease, unspecified; I10 Essential (primary) hypertension; Z87.891 Personal history of nicotine dependence; X50.9XXA Other and unspecified overexertion or strenuous movements or postures, initial encounter; Y99.8 Other external cause status; Y93.89 Activity, other specified
CPT/HCPCS: 70450; 72125; 96374; 99285; J2405; G0480

== ENCOUNTER 2018-03-30 20:57 | Inpatient (IN) | payer OTHER ==
[2018-03-30] MEDS ORDERED: MAGNESIUM SULF 2 GM/WATER 50 ML IV ONE (21:04)
--- NOTE | 2018-03-30 21:06 | EDPHY ---
H & P Stated Complaint: SOB, hx PNA Time Seen by Provider: 03/30/18 20:57 HPI/ROS: Chief complaint: Difficulty breathing History of present illness: This is a 62-year-old female brought to the emergency department by EMS for evaluation of difficulty breathing. Patient has a history of COPD. She does have a history of recurrent pneumonia. She generally has difficulty breathing on a regular basis. However over the last few hours it has significantly worsened therefore she called EMS. EMS has given her 2 duo nebulizers and 125 mg of Solu-Medrol IV. They report on initial presentation patient had audible wheezing, was in the tripod position with significant accessory muscle use. On my evaluation she states she is feeling better after the interventions. However she is still in significant respiratory distress. She is only speaking to me in 1-2 words. A 10 point review of systems was obtained which revealed mild cold symptoms over the last few days otherwise was negative. - Personal History Current Tetanus/Diphtheria Vaccine: Yes Tetanus Vaccine Date: Within 5 years. - Medical/Surgical History Hx Asthma: No Hx Chronic Respiratory Disease: Yes Hx Diabetes: No Hx Cardiac Disease: No Hx Renal Disease: No Hx Cirrhosis: No Hx Alcoholism: Yes Hx HIV/AIDS: No Hx Splenectomy or Spleen Trauma: No Other PMH: COPD, HTN, mixed connective tissue disorder, hypothyroid, chronic pain, HL, reports bipolar, etoh, smoker, hep c+,pneumonia,psych - Social History Smoking Status: Former smoker - Physical Exam Exam: General Appearance: Alert, obvious respiratory distress. Eyes: Pupils equal and round no pallor or injection. ENT, Mouth: Mucous membranes moist. Respiratory: Patient has 2-3 word dyspnea. There is use of accessory muscles. Diffuse rhonchi and wheezing noted. Cardiovascular: Tachycardic. Gastrointestinal: Abdomen is soft and non tender, no masses, bowel sounds normal. Neurological: Alert. Strength and sensation intact and symmetrical. Skin: Warm and dry, no rashes. Musculoskeletal: Neck is supple non tender. Extremities are symmetrical, full range of motion. Psychiatric: Patient is oriented X 3, she appears very anxious. Constitutional: Initial Vital Signs Temperature (C) 36.4 C 03/30/18 21:03 Heart Rate 133 H 03/30/18 21:03 Respiratory Rate 30 H 03/30/18 21:03 Blood Pressure 193/115 H 03/30/18 21:03 O2 Sat (%) 100 03/30/18 21:03 O2 Delivery Mode Humidified O2 (L/minute) 8 Allergies/Adverse Reactions: hydrochlorothiazide Allergy (Mild, Verified 07/01/17 19:29) Home Medications: Medication Instructions Recorded QUEtiapine FUMARATE [Seroquel 300 mg PO HS 09/21/14 300mg (*)] Levothyroxine [Synthroid 112 mcg 112 mcg PO DAILY06 11/05/14 (*)] Meloxicam [Mobic 7.5 mg] 7.5 mg PO BID 11/05/14 Lisinopril [Zestril 20 mg (*)] 20 mg PO DAILY 07/02/17 Metoprolol Tartrate [Lopressor 25 12.5 mg PO BID #60 tab 07/09/17 mg (*)] Medical Decision Making - Diagnostics Imaging Results: Imaging Impressions Chest X-Ray 03/30/18 21:05 Impression: 1. Mild bronchitis. 2. No definite pneumonia. 3. Old right rib fractures. Imaging: I viewed and interpreted images myself ED Course/Re-evaluation: Patient was met upon arrival by myself and my attending physician Dr. Daniel Parekh for dyspnea. She appeared to be in significant respiratory distress. She already had 2 duo nebs and 125 mg of Solu-Medrol by EMS. Respiratory was called for BiPAP. In the ED she is given 2 g of magnesium. Baseline blood studies and chest x-ray were ordered. Baseline blood studies are largely unremarkable including a negative D-dimer that is age adjusted. Patient did not tolerate BiPAP well. She was switch back to a continuous nebulizer on high-flow oxygen. She improved in the emergency department. Respiratory distress diminished although did not resolve. She was speaking to me in full sentences prior to admission. I have admitted her to Dr. Low. The plan has been discussed with the patient voiced understanding and agreement with it. - Data Points Laboratory Results: Laboratory Results 03/30/18 21:00 03/30/18 21:00 03/30/18 03/30/18 03/30/18 21:35 21:00 21:00 WBC RBC Hgb Hct MCV MCH MCHC RDW Plt Count MPV Neut % (Auto) Lymph % (Auto) [place] % (Auto) Eos % (Auto) Baso % (Auto) Nucleat RBC Rel Count Absolute Neuts (auto) Absolute Lymphs (auto) Absolute Monos (auto) Absolute Eos (auto) Absolute Basos (auto) Absolute Nucleated RBC Immature Gran % Immature Gran # VBG Lactic Acid 1.1 mmol/L mmol/L (0.7-2.1) Sodium 133 mEq/L L mEq/L (135-145) Potassium 5.1 mEq/L H mEq/L (3.3-5.0) Chloride 94 mEq/L L mEq/L (97-110) Carbon Dioxide 24 mEq/l mEq/l (22-31) Anion Gap 15 mEq/L H mEq/L (6-14) BUN 16 mg/dL mg/dL (7-23) Creatinine 0.8 mg/dL mg/dL (0.6-1.0) Estimated GFR > 60 Glucose 130 mg/dL H mg/dL (70-100) Calcium 10.1 mg/dL mg/dL (8.5-10.4) Procalcitonin 0.03 ng/mL ng/mL (0.02-0.10) Ethyl Alcohol < 10 mg/dL mg/dL (0-10) 03/30/18 21:00 WBC 13.74 10^3/uL H 10^3/uL (3.80-9.50) RBC 3.74 10^6/uL L 10^6/uL (4.18-5.33) Hgb 12.8 g/dL g/dL (12.6-16.3) Hct 37.0 % L % (38.0-47.0) MCV 98.9 fL fL (81.5-99.8) MCH 34.2 pg H pg (27.9-34.1) MCHC 34.6 g/dL g/dL (32.4-36.7) RDW 12.1 % % (11.5-15.2) Plt Count 389 10^3/uL 10^3/uL (150-400) MPV 8.3 fL L fL (8.7-11.7) Neut % (Auto) 63.2 % % (39.3-74.2) Lymph % (Auto) 26.8 % % (15.0-45.0) [place] % (Auto) 8.7 % % (4.5-13.0) Eos % (Auto) 0.3 % L % (0.6-7.6) Baso % (Auto) 0.7 % % (0.3-1.7) Nucleat RBC Rel Count 0.0 % % (0.0-0.2) Absolute Neuts (auto) 8.70 10^3/uL H 10^3/uL (1.70-6.50) Absolute Lymphs (auto) 3.68 10^3/uL H 10^3/uL (1.00-3.00) Absolute Monos (auto) 1.19 10^3/uL H 10^3/uL (0.30-0.80) Absolute Eos (auto) 0.04 10^3/uL 10^3/uL (0.03-0.40) Absolute Basos (auto) 0.09 10^3/uL 10^3/uL (0.02-0.10) Absolute Nucleated RBC 0.00 10^3/uL 10^3/uL (0-0.01) Immature Gran % 0.3 % % (0.0-1.1) Immature Gran # 0.04 10^3/uL 10^3/uL (0.00-0.10) VBG Lactic Acid Sodium Potassium Chloride Carbon Dioxide Anion Gap BUN Creatinine Estimated GFR Glucose Calcium Procalcitonin Ethyl Alcohol Medications Given: Guaifenesin/Dextromethorphan (Robitussin Dm Oral Liquid) 10 ml PO Q4HRS PRN PRN Reason: Cough, Moderate Stop: 09/27/18 00:43 Last Admin: 03/31/18 00:51 Dose: 10 ml Discontinued Medications Azithromycin (Zithromax) 500 mg PO ONCE ONE PRN Reason: Protocol Stop: 03/30/18 22:41 Last Admin: 03/30/18 23:05 Dose: 500 mg Magnesium Sulfate (Magnesium Sulf 2 Gm (Premix)) 50 mls @ 50 mls/hr IV EDNOW ONE Stop: 03/30/18 22:03 Last Admin: 03/30/18 21:07 Dose: 50 mls Sodium Chloride (Ns) 500 mls @ 1,000 mls/hr IV EDNOW ONE PRN Reason: Protocol Stop: 03/30/18 22:59 Last Admin: 03/30/18 22:31 Dose: 500 mls Departure - Departure Disposition: [facility] Inpatient Acute Clinical Impression: Chronic obstructive pulmonary disease with acute exacerbation Condition: Fair
[2018-03-30 21:19] LABS: PLATELET COUNT 389 10^3/uL (150-400)
[2018-03-30] MEDS ORDERED: IPRATROPIUM/ALBUTEROL 3 ML DEYVIAL ONE (21:54)
[2018-03-30] MEDS ORDERED: NS 500 ML IV ONE (22:30)
[2018-03-30] MEDS ORDERED: ACETAMINOPHEN 325 MG TAB PO PRN (22:37)
[2018-03-30] MEDS ORDERED: ONDANSETRON DISINTEGRATING 4 MG TAB PO PRN (22:37)
[2018-03-30] MEDS ORDERED: ONDANSETRON 4 MG/2 ML VIAL IVP PRN (22:37)
[2018-03-30] MEDS ORDERED: AZITHROMYCIN 250 MG TAB PO ONE ×2 (22:40→23:02)
--- NOTE | 2018-03-31 00:50 | PDGENHP ---
History and Physical - Chief Complaint Shortness of breath - History of Present Illness 62 yo F w/ hx of COPD and HTN presents with shortness of breath. The patient has experienced progressive shortness of breath for about 3 days. She noted sore throat and congestion starting about 2 days prior to the onset of her shortness of breath. She also now has a dry cough. She denies sick contacts. She ran out of her albuterol inhaler this monring and without her symptoms worsened dramatically. She presented to the ED in severe respiratory distress requiring NRB and BIPAP. She responded fairly well to aggressive treatment with nebulizers and steroids. She remains in moderate respiratory distress but is able to speak in full sentences. Case discussed with ED physician Dr. Parekh; records reviewed in EMR. History Information - Allergies/Home Medication List Allergies/Adverse Reactions: hydrochlorothiazide Allergy (Mild, Verified 07/01/17 19:29) Home Medications: QUEtiapine FUMARATE [Seroquel 300mg (*)] 300 mg PO HS 09/21/14 [Last Taken Unknown] Levothyroxine [Synthroid 112 mcg (*)] 112 mcg PO DAILY06 11/05/14 [Last Taken Unknown] Meloxicam [Mobic 7.5 mg] 7.5 mg PO BID 11/05/14 [Last Taken Unknown] Lisinopril [Zestril 20 mg (*)] 20 mg PO DAILY 07/02/17 [Last Taken Unknown] I have personally reviewed and updated: family history, medical history - Past Medical History Additional medical history: Bipolar disorder, alcohol dependence with 3 withdrawal seizures, Raynaud's, erosive esophagitis, history GI bleed, hypothyroidism, COPD, tobacco abuse, history maxillary sinus fracture, anemia - Surgical History Additional surgical history: Breast reduction, sacral plasty - Family History Additional family history: Family history negative for seizures. brother with history of drug and alcohol abuse. Other family members with history of DM an HTN - Social History Smoking Status: Former smoker Additional social history: Patient lives alone in apartment. Her neighbor provide support. Patient has a brother who lives in [place]. Code status is full at this time unable to explain fully with patient previous admissions note also full code. Review of Systems Review of Systems: ROS: 10pt was reviewed & negative except for what was stated in HPI & below Physical Exam Physical Exam: Temp Pulse Resp BP Pulse Ox 37.1 C 135 H 28 H 139/91 H 98 03/30/18 23:54 03/31/18 00:30 03/31/18 00:30 03/30/18 23:54 03/31/18 00:30 O2 (L/minute) 4 Constitutional: appears nourished, other (Respiratory distress noted) Eyes: PERRL, EOMI Ears, Nose, Mouth, Throat: moist mucous membranes, no oral mucosal ulcers Cardiovascular: no murmur, rub, or gallop, tachycardia Respiratory: reduced air movement, expiratory wheeze, respiratory distress Gastrointestinal: normoactive bowel sounds, soft, non-tender abdomen Skin: warm, normal color Musculoskeletal: full muscle strength, no muscle tenderness Neurologic: AAOx3, CN II-XII Intact Psychiatric: interacting appropriately, not anxious Lab Data & Imaging Review 03/30/18 21:00 03/30/18 21:00 WBC 13.74 10^3/uL (3.80-9.50) H 03/30/18 21:00 RBC 3.74 10^6/uL (4.18-5.33) L 03/30/18 21:00 Hgb 12.8 g/dL (12.6-16.3) 03/30/18 21:00 Hct 37.0 % (38.0-47.0) L 03/30/18 21:00 MCV 98.9 fL (81.5-99.8) 03/30/18 21:00 MCH 34.2 pg (27.9-34.1) H 03/30/18 21:00 MCHC 34.6 g/dL (32.4-36.7) 03/30/18 21:00 RDW 12.1 % (11.5-15.2) 03/30/18 21:00 Plt Count 389 10^3/uL (150-400) 03/30/18 21:00 MPV 8.3 fL (8.7-11.7) L 03/30/18 21:00 Neut % (Auto) 63.2 % (39.3-74.2) 03/30/18 21:00 Lymph % (Auto) 26.8 % (15.0-45.0) 03/30/18 21:00 [place] % (Auto) 8.7 % (4.5-13.0) 03/30/18 21:00 Eos % (Auto) 0.3 % (0.6-7.6) L 03/30/18 21:00 Baso % (Auto) 0.7 % (0.3-1.7) 03/30/18 21:00 Nucleat RBC Rel Count 0.0 % (0.0-0.2) 03/30/18 21:00 Absolute Neuts (auto) 8.70 10^3/uL (1.70-6.50) H 03/30/18 21:00 Absolute Lymphs (auto) 3.68 10^3/uL (1.00-3.00) H 03/30/18 21:00 Absolute Monos (auto) 1.19 10^3/uL (0.30-0.80) H 03/30/18 21:00 Absolute Eos (auto) 0.04 10^3/uL (0.03-0.40) 03/30/18 21:00 Absolute Basos (auto) 0.09 10^3/uL (0.02-0.10) 03/30/18 21:00 Absolute Nucleated RBC 0.00 10^3/uL (0-0.01) 03/30/18 21:00 Immature Gran % 0.3 % (0.0-1.1) 03/30/18 21:00 Immature Gran # 0.04 10^3/uL (0.00-0.10) 03/30/18 21:00 D-Dimer 0.51 ug/mLFEU (0.00-0.50) H 03/30/18 22:45 VBG Lactic Acid 1.1 mmol/L (0.7-2.1) 03/30/18 21:35 Sodium 133 mEq/L (135-145) L 03/30/18 21:00 Potassium 5.1 mEq/L (3.3-5.0) H 03/30/18 21:00 Chloride 94 mEq/L (97-110) L 03/30/18 21:00 Carbon Dioxide 24 mEq/l (22-31) 03/30/18 21:00 Anion Gap 15 mEq/L (6-14) H 03/30/18 21:00 BUN 16 mg/dL (7-23) 03/30/18 21:00 Creatinine 0.8 mg/dL (0.6-1.0) 03/30/18 21:00 Estimated GFR > 60 03/30/18 21:00 Glucose 130 mg/dL (70-100) H 03/30/18 21:00 Calcium 10.1 mg/dL (8.5-10.4) 03/30/18 21:00 Procalcitonin 0.03 ng/mL (0.02-0.10) 03/30/18 21:00 Ethyl Alcohol < 10 mg/dL (0-10) 03/30/18 21:00 Imaging Review: Imaging Impressions Chest X-Ray 03/30/18 21:05 Impression: 1. Mild bronchitis. 2. No definite pneumonia. 3. Old right rib fractures. Assessment & Plan Assessment: 62 yo F w/ COPD and HTN presents with acute exacerbation. Plan: 1. COPD with acute exacerbation - Presented in severe respiratory distress requiring NRB and BIPAP; now somewhat improved after aggressive nebulizer treatments and steroids. I suspect trigger is viral noting symptoms (congestion , sore throat, dry cough), CXR (personally reviewed/interpreted) without clear pneumonia, and negative procalcitonin. D-dimer is negative on age-adjusted basis. - Admit to SDU for close monitoring - Prednisone and azithromycin for 5 days - Duonebs QID charlene + albuterol PRN 2. AHRF - 2/2 to COPD exacerbation; initially requiring BIPAP and NRB, but now tolerating NC after aggressive therapy. - O2 PRN to maintain O2 sats > 90% - Incentive spirometry ordered 3. Hx of ETOH use d/o - Patient tells me she has been sober for several months. 4. HTN - Continue home medications pending reconciliation 5. BPD - Continue home medications pending reconciliation 6. Hypothyroid - Continue LTX Diet - Regular Code - Full Ppx - LMWH Dispo - Admit under inpatient status
[2018-03-31] MEDS: GUAIFENESIN/DM 10 ML UDCUP PO PRN ×2 (00:51→19:50)
[2018-03-31] MEDS ORDERED: IPRATROPIUM/ALBUTEROL 3 ML DEYVIAL ONE (01:48)
[2018-03-31] MEDS: IPRATROPIUM/ALBUTEROL 3 ML DEYVIAL IH SCH ×4 (03:17→20:16)
[2018-03-31 06:06] LABS: PLATELET COUNT 272 10^3/uL (150-400)
[2018-03-31] MEDS: ALBUTEROL 3 ML DEYVIAL IH PRN ×2 (08:19→23:10)
--- NOTE | 2018-03-31 08:58 | ASMTLACE ---
KASSIE Acuity / Level of Answers: Yes Care: Did the patient have an inpatient admission? Comorbidities - select Answers: Chronic pulmonary disease all that apply Connective tissue disease Opioid dependence / Chronic pain Other Notes: HTN; Hypothyroid; Hep C # of Emergency department Answers: 1-2 visits in the last 6 months Social determinants Answers: History of substance abuse (ETOH, street drugs, prescription drugs, etc.) Mental health diagnosis (anxiety, depression, pers onality disorders, etc.) Score: 20 Date Signed: 03/31/2018 08:56 AM Electronically Signed By:Trish Piña
[2018-03-31] MEDS ORDERED: predniSONE 20 MG TAB PO SCH (09:00)
--- NOTE | 2018-03-31 09:00 | PDMN ---
Medical Necessity Medical necessity: MCG: M100 COPD acute exacerbation : progressive SOB, congestion, sore throat, cough, presented to ED in severe resp distress req. NRB and BIPAP. Tachycardic 130-140, tachypnic - 30's. PMH bipolar disorder, ETOH dependence with 3 W/D Sz., Raynauds, erosive esophagitis, hx GIB, hypothyroidism, COPD, tobacco abuse, anemia, anticipate > 2 MN ongoing med nec care
--- NOTE | 2018-03-31 09:02 | ASMTCMCOM ---
CM Note CM Note Notes: 62yr old female admitted for SOB, COPD exascerbation. She has a Hx of COPD, Former smoker, HTN, ETOH abuse-W/D w/Sz, Hypothyroid, UGIB, Bipolar. Patient lives alone. May not have discharge needs. CM to follow. Date Signed: 03/31/2018 09:02 AM Electronically Signed By:Mary Rushing LCSW
--- NOTE | 2018-03-31 09:20 | HOSPPROG ---
Hospitalist Progress Note Assessment/Plan: 62 yo F w copd and htn and here w exacerbation of copd copd: significant exacerbation increase steroids to IV x 24 hours continue azithro no organism on resp panel, no infiltrate tachycardia: attributable to nebs anxiety: moderate, understandable prn low dose ativan htn: restart lisinopril proph: lmwh dispo: step down, inpt. sick Subjective: case d/w dr barker. cxr w no infiltrate (interp by me). still pretty dyspneic Objective: Vital Signs Temp Pulse Resp BP Pulse Ox 37.1 C 123 H 22 H 161/92 H 93 03/31/18 07:31 03/31/18 08:21 03/31/18 08:21 03/31/18 07:31 03/31/18 08:21 Laboratory Results 03/31/18 05:36 03/31/18 05:36 03/30/18 03/31/18 04/01/18 05:59 05:59 05:59 Intake Total 800 Balance 800 - Physical Exam Constitutional: no apparent distress, appears nourished Eyes: PERRL, anicteric sclera Ears, Nose, Mouth, Throat: moist mucous membranes, hearing normal Cardiovascular: no murmur, rub, or gallop, tachycardia, edema Respiratory: other (increased work of breathing. tight. prolonged expiratory phase. wheezing) Gastrointestinal: normoactive bowel sounds, soft, non-tender abdomen Genitourinary: no bladder fullness, No rollins in urethra Skin: warm, normal color Musculoskeletal: full muscle strength Neurologic: AAOx3 Psychiatric: interacting appropriately Lymph, Heme, Immunologic: no cervical LAD ICD10 Worksheet Patient Problems: Problems Problem Status Onset Chronic obstructive pulmonary disease with acute exacerbation Acute Alcohol withdrawal delirium Acute Upper GI bleed Acute
[2018-03-31] MEDS: ENOXAPARIN 40 MG/0.4 ML SYR SC SCH (09:37)
[2018-03-31] MEDS: LORazepam 0.5 MG TAB PO PRN ×3 (09:37→22:06)
[2018-03-31] MEDS: BENZONATATE 100 MG CAP PO PRN (09:37)
[2018-03-31] MEDS: LISINOPRIL 20 MG TAB PO SCH (09:37)
[2018-03-31] MEDS: AZITHROMYCIN 250 MG TAB PO SCH (09:37)
[2018-03-31] MEDS ORDERED: QUEtiapine FUMARATE 200 MG TAB PO SCH ×2 (09:45→10:45)
[2018-03-31] MEDS: methylPREDNISolone SOD SUCC 125 MG/2 ML VIAL IVP SCH ×4 (10:01→23:33)
[2018-03-31] MEDS: LEVOTHYROXINE 112 MCG TAB PO SCH (10:02)
[2018-03-31] MEDS: BUDESONIDE/FORMOTEROL 160/4.5 60 PUFFS/MDI IH SCH ×2 (11:06→20:16)
--- NOTE | 2018-03-31 12:50 | PDINTPN ---
[employer] Progress Note Assessment/Plan: 62 F with COPD and ETOH admitted 03/30 with COPD exacerbation. Cause unclear, but CXR unremarkable and respiratory panel negative. She required Bipap on arrival to ED (via EMS) but did not tolerate it well, though symptoms were apparently improving. She was given continuous nebs, Magnesium, azithromycin, and solumedrol, which was transitioned to prednisone. * COPD exacerbation- she is still in obvious respiratory distress, though said she was "100% better" compared to yesterday. Agree with starting Symbicort ( home med) and return to IV steroids for now. Although procalcitonin was negative , macrolides have additional value in chronic lung disease so continue for now. If she remains in distress, we can change her to heliox as well. * Extensive etoh history- watch for wd and I will question her further about this. She is clearly very tachy and hypertensive at the moment, but seems to have a clear mental status. She was given low dose ativan for anxiety this AM. ETOH negative on arrival. * Bipolar- currently stable, continue outpatient meds. * Dispo- keep SDU status Objective: Vital Signs Temp Pulse Resp BP Pulse Ox 36.9 C 141 H 26 H 131/73 H 96 03/31/18 11:36 03/31/18 11:36 03/31/18 11:36 03/31/18 11:36 03/31/18 11:36 Laboratory Results 03/31/18 05:36 03/31/18 05:36 03/30/18 03/31/18 04/01/18 05:59 05:59 05:59 Intake Total 800 Balance 800 Physical Exam - Physical Exam General Appearance: alert, moderate distress, anxiety, thin EENT: PERRL/EOMI Neck: supple Respiratory: respiratory distress, accessory muscle use, wheezing, prolonged expiration, retractions, No normal breath sounds, No crackles Cardiac/Chest: regular rate, rhythm, tachycardia, No edema Abdomen: non-tender, soft, No organomegaly, No distended Skin: normal color, warm/dry, No cyanosis Lymphatic: no adenopathy Extremities: No pedal edema Neuro/Psych: alert, normal mood/affect, oriented x 3 ICD10 Worksheet Patient Problems: Problems Problem Status Onset Chronic obstructive pulmonary disease with acute exacerbation Acute Alcohol withdrawal delirium Acute Upper GI bleed Acute
[2018-03-31] MEDS: QUEtiapine FUMARATE 300 MG TAB PO SCH (19:38)
[2018-04-01] MEDS: GUAIFENESIN/DM 10 ML UDCUP PO PRN ×2 (04:23→23:13)
[2018-04-01] MEDS: methylPREDNISolone SOD SUCC 125 MG/2 ML VIAL IVP SCH ×2 (04:23→23:19)
[2018-04-01] MEDS: LEVOTHYROXINE 112 MCG TAB PO SCH (04:24)
[2018-04-01] MEDS: LORazepam 0.5 MG TAB PO PRN ×5 (04:28→23:19)
[2018-04-01] MEDS: IPRATROPIUM/ALBUTEROL 3 ML DEYVIAL IH SCH ×4 (04:30→19:33)
[2018-04-01] MEDS ORDERED: LEVOTHYROXINE 112 MCG TAB PO SCH (06:00)
[2018-04-01] MEDS: ALBUTEROL 3 ML DEYVIAL IH PRN ×3 (08:36→23:26)
[2018-04-01] MEDS: AZITHROMYCIN 250 MG TAB PO SCH (09:28)
[2018-04-01] MEDS: LISINOPRIL 20 MG TAB PO SCH (09:28)
[2018-04-01] MEDS: ENOXAPARIN 40 MG/0.4 ML SYR SC SCH (09:28)
[2018-04-01] MEDS: QUEtiapine FUMARATE 200 MG TAB PO SCH (09:28)
--- NOTE | 2018-04-01 09:49 | HOSPPROG ---
Hospitalist Progress Note Assessment/Plan: 62 yo F w copd and htn and here w exacerbation of copd copd: significant exacerbation back to po steroids continue azithro no organism on resp panel, no infiltrate tachycardia: attributable to nebs + ddimer noted check CT PE denies recent alcohol anxiety: moderate, understandable prn low dose ativan htn: restart lisinopril proph: lmwh dispo: step down, inpt. sick Subjective: case d/w dr barker. remains tachycardic. states no etoh in 3-4 months; acknowledges past history Objective: Vital Signs Temp Pulse Resp BP Pulse Ox 37.1 C 122 H 28 H 134/77 H 93 04/01/18 07:34 04/01/18 08:36 04/01/18 08:36 04/01/18 07:34 04/01/18 08:36 Laboratory Results 03/31/18 05:36 03/31/18 05:36 03/31/18 04/01/18 04/02/18 05:59 05:59 05:59 Intake Total 800 1400 Output Total 800 Balance 800 600 - Physical Exam Constitutional: no apparent distress, appears nourished Eyes: PERRL Ears, Nose, Mouth, Throat: moist mucous membranes Cardiovascular: no murmur, rub, or gallop, tachycardia Respiratory: no respiratory distress, other (tachypneic and increaseed work of brathig w wheezes. this is improved from yesterday as she is moving more air) Gastrointestinal: normoactive bowel sounds, soft, non-tender abdomen Genitourinary: no bladder fullness, No rollins in urethra Skin: warm, normal color Musculoskeletal: full muscle strength Neurologic: AAOx3 ICD10 Worksheet Patient Problems: Problems Problem Status Onset Chronic obstructive pulmonary disease with acute exacerbation Acute Alcohol withdrawal delirium Acute Upper GI bleed Acute
[2018-04-01] MEDS ORDERED: predniSONE 20 MG TAB PO SCH (10:00)
[2018-04-01] MEDS: BUDESONIDE/FORMOTEROL 160/4.5 60 PUFFS/MDI IH SCH ×2 (10:32→19:33)
[2018-04-01] MEDS ORDERED: IOPAMIDOL (ISOVUE 370) 100 ML BTL IV ONE (11:04)
--- NOTE | 2018-04-01 12:59 | PDINTPN ---
Engraver Apprentice Decorative Progress Note Assessment/Plan: 62 F with COPD and ETOH admitted 03/30 with COPD exacerbation. Cause unclear, but CXR unremarkable and respiratory panel negative. She required Bipap on arrival to ED (via EMS) but did not tolerate it well, though symptoms were apparently improving. She was given continuous nebs, Magnesium, azithromycin, and solumedrol, which was transitioned to prednisone. * COPD exacerbation- mild improvement from 03/31 with reduced accessory muscle use. Continue with IV steroids, ysmbicort, O2 today and may transition to prednisone tomorrow * Extensive etoh history- reports being sober for 2-3 months. No current signs of WD * Bipolar- currently stable, continue outpatient meds. * Dispo- keep SDU status another day 04/01/18 12:57 Subjective: Continues to improve Objective: Vital Signs Temp Pulse Resp BP Pulse Ox 36.6 C 136 H 20 134/77 H 95 04/01/18 11:43 04/01/18 11:43 04/01/18 11:43 04/01/18 07:34 04/01/18 11:43 Laboratory Results 03/31/18 05:36 03/31/18 05:36 03/31/18 04/01/18 04/02/18 05:59 05:59 05:59 Intake Total 800 1400 Output Total 800 Balance 800 600 Physical Exam - Physical Exam General Appearance: alert, no apparent distress, thin EENT: PERRL/EOMI Neck: supple Respiratory: accessory muscle use, decreased breath sounds, wheezing, No respiratory distress Cardiac/Chest: regular rate, rhythm, No edema Abdomen: non-tender, soft, No distended Skin: normal color, warm/dry, No cyanosis Lymphatic: no adenopathy Extremities: No pedal edema Neuro/Psych: alert, normal mood/affect, oriented x 3 ICD10 Worksheet Patient Problems: Problems Problem Status Onset Chronic obstructive pulmonary disease with acute exacerbation Acute Alcohol withdrawal delirium Acute Upper GI bleed Acute
[2018-04-01] MEDS ORDERED: ACETYLCYSTEINE 20% IH/PO 4 ML VIAL IH ONE (14:45)
[2018-04-01] MEDS: ACETYLCYSTEINE 20% IH/PO 4 ML VIAL IH SCH ×2 (18:47→23:25)
[2018-04-01] MEDS: BENZONATATE 100 MG CAP PO PRN (19:31)
[2018-04-01] MEDS: QUEtiapine FUMARATE 300 MG TAB PO SCH (19:31)
[2018-04-02] MEDS: BENZONATATE 100 MG CAP PO PRN ×4 (00:21→23:26)
[2018-04-02] MEDS: GUAIFENESIN/DM 10 ML UDCUP PO PRN ×4 (03:31→23:26)
[2018-04-02] MEDS: LORazepam 0.5 MG TAB PO PRN ×5 (03:31→23:26)
[2018-04-02] MEDS: IPRATROPIUM/ALBUTEROL 3 ML DEYVIAL IH SCH ×4 (05:24→20:00)
[2018-04-02] MEDS: ACETYLCYSTEINE 20% IH/PO 4 ML VIAL IH SCH ×3 (05:25→16:06)
[2018-04-02] MEDS: LEVOTHYROXINE 112 MCG TAB PO SCH (05:42)
[2018-04-02] MEDS: methylPREDNISolone SOD SUCC 125 MG/2 ML VIAL IVP SCH ×4 (05:42→22:15)
[2018-04-02] MEDS: BUDESONIDE/FORMOTEROL 160/4.5 60 PUFFS/MDI IH SCH ×2 (08:58→20:00)
[2018-04-02] MEDS: ALBUTEROL 3 ML DEYVIAL IH PRN ×2 (09:03→23:33)
[2018-04-02] MEDS: AZITHROMYCIN 250 MG TAB PO SCH (09:08)
[2018-04-02] MEDS: LISINOPRIL 20 MG TAB PO SCH (09:08)
[2018-04-02] MEDS: ENOXAPARIN 40 MG/0.4 ML SYR SC SCH (09:08)
[2018-04-02] MEDS: QUEtiapine FUMARATE 200 MG TAB PO SCH (09:08)
[2018-04-02] MEDS: NICOTINE POLACRILEX 2 MG GUM B PRN ×7 (09:47→23:19)
--- NOTE | 2018-04-02 11:04 | PDINTPN ---
Public Address Announcer Progress Note Assessment/Plan: 62 F with COPD and ETOH admitted 03/30 with COPD exacerbation. Cause unclear, but CXR unremarkable and respiratory panel negative. She required Bipap on arrival to ED (via EMS) but did not tolerate it well, though symptoms were apparently improving. She was given continuous nebs, Magnesium, azithromycin, and solumedrol, which was transitioned to prednisone. * COPD exacerbation- seems a bit tenuous at the moment. Will leave IV steroids for now and continue mucomyst nebs. She may get occasional mucous plugs that may respond to CPT. Continue O2 to keep sat >90%. Not sure xopenex will change much * Tachycardia- sinus tach with normal BP. * Extensive etoh history- reports being sober for 2-3 months. No current signs of WD * Bipolar- currently stable, continue outpatient meds of seroquel 200/day and 300 qhs. She is also getting fairly regular ativan prn * Dispo- keep SDU status Subjective: difficulty last pm, but better this am. Objective: Vital Signs Temp Pulse Resp BP Pulse Ox 36.7 C 120 H 22 H 158/73 H 95 04/02/18 07:39 04/02/18 07:57 04/02/18 07:57 04/02/18 07:39 04/02/18 07:57 Laboratory Results 03/31/18 05:36 03/31/18 05:36 04/01/18 04/02/18 04/03/18 05:59 05:59 05:59 Intake Total 1400 1400 750 Output Total 800 1000 800 Balance 600 400 -50 Physical Exam - Physical Exam General Appearance: alert, mild distress, thin EENT: PERRL/EOMI Neck: supple Respiratory: respiratory distress (mild), accessory muscle use, decreased breath sounds, wheezing, prolonged expiration, No crackles, No rhonchi, No pleural rub Cardiac/Chest: regular rate, rhythm, No edema Abdomen: non-tender, soft, No distended Skin: normal color, warm/dry, No cyanosis Lymphatic: no adenopathy Extremities: No pedal edema Neuro/Psych: alert, normal mood/affect, oriented x 3 ICD10 Worksheet Patient Problems: Problems Problem Status Onset Chronic obstructive pulmonary disease with acute exacerbation Acute Alcohol withdrawal delirium Acute Upper GI bleed Acute
[2018-04-02] MEDS: PANTOPRAZOLE SODIUM 40 MG TAB PO SCH (11:38)
--- NOTE | 2018-04-02 12:06 | ASMTCMCOM ---
CM Note CM Note Notes: Patient will most likely d/c independent. CM available if d/c needs arise. Date Signed: 04/02/2018 12:05 PM Electronically Signed By:Emma Manrique LCSW
--- NOTE | 2018-04-02 14:48 | HOSPPROG ---
Hospitalist Progress Note Assessment/Plan: 62 yo F w copd and htn and here w exacerbation of copd copd: significant exacerbation back to IV steroids continue azithro no organism on resp panel, no infiltrate liver abnormalities: suspected contrast mixing artifact re image when clinically improved compression fracture: healing no pain tachycardia: attributable to nebs + ddimer noted check CT PE denies recent alcohol anxiety: moderate, understandable prn low dose ativan htn: restart lisinopril proph: lmwh dispo: step down, inpt. sick Subjective: case d/w dr barker. slighlty better this afternoon although back on IV steroids. no PE but abnormal liver parenchyma and L2 fracture noted Objective: Vital Signs Temp Pulse Resp BP Pulse Ox 36.7 C 108 H 18 139/64 H 93 04/02/18 11:50 04/02/18 12:58 04/02/18 12:58 04/02/18 11:50 04/02/18 12:58 Laboratory Results 03/31/18 05:36 03/31/18 05:36 04/01/18 04/02/18 04/03/18 05:59 05:59 05:59 Intake Total 1400 1400 750 Output Total 800 1000 800 Balance 600 400 -50 - Physical Exam Constitutional: no apparent distress, appears nourished Eyes: PERRL, anicteric sclera Ears, Nose, Mouth, Throat: moist mucous membranes, hearing normal Cardiovascular: no murmur, rub, or gallop, tachycardia Respiratory: other (improved air movement. less wheeze) Gastrointestinal: normoactive bowel sounds, soft, non-tender abdomen Genitourinary: no bladder fullness, No rollins in urethra Skin: warm, normal color Musculoskeletal: full muscle strength, no muscle tenderness Neurologic: AAOx3 ICD10 Worksheet Patient Problems: Problems Problem Status Onset Chronic obstructive pulmonary disease with acute exacerbation Acute Alcohol withdrawal delirium Acute Upper GI bleed Acute
[2018-04-02] MEDS ORDERED: LORazepam 1 MG TAB PO ONE (17:30)
[2018-04-02] MEDS: QUEtiapine FUMARATE 300 MG TAB PO SCH (20:11)
[2018-04-03] MEDS: NICOTINE POLACRILEX 2 MG GUM B PRN ×15 (00:52→23:35)
[2018-04-03] MEDS: GUAIFENESIN/DM 10 ML UDCUP PO PRN ×3 (03:10→20:22)
[2018-04-03] MEDS: IPRATROPIUM/ALBUTEROL 3 ML DEYVIAL IH SCH ×2 (05:06→06:27)
[2018-04-03] MEDS: methylPREDNISolone SOD SUCC 125 MG/2 ML VIAL IVP SCH (05:30)
[2018-04-03] MEDS: LEVOTHYROXINE 112 MCG TAB PO SCH (06:50)
[2018-04-03] MEDS: LORazepam 0.5 MG TAB PO PRN ×5 (06:50→23:20)
[2018-04-03] MEDS: BENZONATATE 100 MG CAP PO PRN (06:50)
[2018-04-03] MEDS: ENOXAPARIN 40 MG/0.4 ML SYR SC SCH (08:19)
[2018-04-03] MEDS: LISINOPRIL 20 MG TAB PO SCH (08:20)
[2018-04-03] MEDS: QUEtiapine FUMARATE 200 MG TAB PO SCH (08:20)
[2018-04-03] MEDS: AZITHROMYCIN 250 MG TAB PO SCH (08:20)
[2018-04-03] MEDS: PANTOPRAZOLE SODIUM 40 MG TAB PO SCH (08:20)
[2018-04-03] MEDS: LEVALBUTEROL 0.63 MG/3 ML DEYVIAL IH SCH ×3 (10:56→23:19)
[2018-04-03] MEDS: TIOTROPIUM INHALER 18 MCG/DOSE 5 DOSE/MDI IH SCH (10:59)
[2018-04-03] MEDS: BUDESONIDE/FORMOTEROL 160/4.5 60 PUFFS/MDI IH SCH ×2 (11:01→20:02)
--- NOTE | 2018-04-03 12:48 | PDINTPN ---
Help Desk Team Leader Progress Note Assessment/Plan: 62 F with COPD and ETOH admitted 03/30 with COPD exacerbation. Cause unclear, but CXR unremarkable and respiratory panel negative. She required Bipap on arrival to ED (via EMS) but did not tolerate it well, though symptoms were apparently improving. She was given continuous nebs, Magnesium, azithromycin, and solumedrol, which was transitioned to prednisone. * COPD exacerbation- slow improvement. Mucomyst may have been increasing bronchospasm so dc'd. Will change to xopenex, prednisone, and dc azithromycin. * Tachycardia- sinus tach with normal BP. Xopenex may help. She may have MAT, but treatment is conservative. * Extensive etoh history- reports being sober for 2-3 months. No current signs of WD * Bipolar- currently stable, continue outpatient meds of seroquel 200/day and 300 qhs. She is also getting fairly regular ativan prn * Dispo- keep SDU status 04/03/18 12:45 Subjective: continues to improve daily with less sob. remains anxious with frequent ativan dosing Objective: Vital Signs Temp Pulse Resp BP Pulse Ox 36.5 C 120 H 25 H 130/68 H 94 04/03/18 11:47 04/03/18 11:47 04/03/18 11:47 04/03/18 11:47 04/03/18 11:47 Laboratory Results 03/31/18 05:36 03/31/18 05:36 04/02/18 04/03/18 04/04/18 05:59 05:59 05:59 Intake Total 1400 1800 Output Total 1000 2352 Balance 400 -552 Physical Exam - Physical Exam General Appearance: alert, no apparent distress, thin EENT: PERRL/EOMI, pharynx normal Neck: supple Respiratory: accessory muscle use, decreased breath sounds, wheezing (less prominent), No respiratory distress, No rales, No retractions Cardiac/Chest: regular rate, rhythm, No edema Abdomen: non-tender, soft, No distended Skin: normal color, warm/dry, No cyanosis Lymphatic: no adenopathy Extremities: No pedal edema Neuro/Psych: normal mood/affect, oriented x 3, abnormal cerebellar tests ICD10 Worksheet Patient Problems: Problems Problem Status Onset Chronic obstructive pulmonary disease with acute exacerbation Acute Alcohol withdrawal delirium Acute Upper GI bleed Acute
--- NOTE | 2018-04-03 14:57 | HOSPPROG ---
Hospitalist Progress Note Assessment/Plan: 62 yo F w copd and htn and here w exacerbation of copd copd: significant exacerbation po steroids continue azithro no organism on resp panel, no infiltrate liver abnormalities: suspected contrast mixing artifact re image when clinically improved 04/03: ordered multiphase ct for AM 04/04 compression fracture: healing no pain tachycardia: attributable to nebs improving but still present check tsh anxiety: moderate, understandable prn low dose ativan htn: restart lisinopril proph: lmwh dispo: step down, inpt. sick Subjective: case d/w dr barker Objective: Vital Signs Temp Pulse Resp BP Pulse Ox 36.5 C 120 H 25 H 130/68 H 94 04/03/18 11:47 04/03/18 11:47 04/03/18 11:47 04/03/18 11:47 04/03/18 11:47 Laboratory Results 03/31/18 05:36 03/31/18 05:36 04/02/18 04/03/18 04/04/18 05:59 05:59 05:59 Intake Total 1400 1800 Output Total 1000 2352 Balance 400 -552 - Physical Exam Constitutional: no apparent distress, appears nourished Eyes: PERRL, anicteric sclera Ears, Nose, Mouth, Throat: moist mucous membranes, hearing normal Cardiovascular: regular rate and rhythym, no murmur, rub, or gallop Gastrointestinal: normoactive bowel sounds, soft, non-tender abdomen Genitourinary: no bladder fullness, No rollins in urethra Skin: warm, normal color Musculoskeletal: full muscle strength, no muscle tenderness Neurologic: AAOx3 ICD10 Worksheet Patient Problems: Problems Problem Status Onset Chronic obstructive pulmonary disease with acute exacerbation Acute Alcohol withdrawal delirium Acute Upper GI bleed Acute
[2018-04-03] MEDS: ALBUTEROL 3 ML DEYVIAL IH PRN (20:02)
[2018-04-03] MEDS: QUEtiapine FUMARATE 300 MG TAB PO SCH (20:04)
[2018-04-04] MEDS: NICOTINE POLACRILEX 2 MG GUM B PRN ×7 (00:55→21:57)
[2018-04-04] MEDS: GUAIFENESIN/DM 10 ML UDCUP PO PRN ×4 (05:07→21:57)
[2018-04-04] MEDS: LEVOTHYROXINE 112 MCG TAB PO SCH (05:07)
[2018-04-04] MEDS: LORazepam 0.5 MG TAB PO PRN ×4 (05:07→21:57)
[2018-04-04] MEDS: LEVALBUTEROL 0.63 MG/3 ML DEYVIAL IH SCH ×4 (05:55→22:00)
[2018-04-04] MEDS: QUEtiapine FUMARATE 200 MG TAB PO SCH (08:53)
[2018-04-04] MEDS: ENOXAPARIN 40 MG/0.4 ML SYR SC SCH (08:53)
[2018-04-04] MEDS: predniSONE 20 MG TAB PO SCH (08:54)
[2018-04-04] MEDS: PANTOPRAZOLE SODIUM 40 MG TAB PO SCH (08:54)
[2018-04-04] MEDS: LISINOPRIL 20 MG TAB PO SCH (08:54)
[2018-04-04] MEDS: BUDESONIDE/FORMOTEROL 160/4.5 60 PUFFS/MDI IH SCH ×2 (09:19→22:00)
[2018-04-04] MEDS: TIOTROPIUM INHALER 18 MCG/DOSE 5 DOSE/MDI IH SCH (09:20)
--- NOTE | 2018-04-04 09:50 | HOSPPROG ---
Hospitalist Progress Note Assessment/Plan: # COPD exacerbation - quite severe; completed coure of azith - cont pred, nebs; symbicort started - still sick, has lab evidence of CO2 retention # AHRF - d/t above # hepatic abnormalities - checking multiphase CT today; check LFTs # L2 compression fx - has underlying osetoporosis, though pathologic fracture suggested by radiology - needs appropriate cancer screening; # tachycardia - d/t resp failure, nebs # anxiety - ativan # htn - lisinopril # bipolar - stable, cont seroquel Subjective: just completed nebulizer Objective: Vital Signs Temp Pulse Resp BP Pulse Ox 36.7 C 119 H 17 164/91 H 94 04/04/18 07:27 04/04/18 09:15 04/04/18 09:15 04/04/18 07:27 04/04/18 09:15 Laboratory Results 03/31/18 05:36 04/04/18 04:54 04/03/18 04/04/18 04/05/18 05:59 05:59 05:59 Intake Total 1800 1300 Output Total 2352 Balance -552 1300 chart reviewed CTA reviewed - Physical Exam Constitutional: uncomfortable Cardiovascular: regular rate and rhythym, no murmur, rub, or gallop Respiratory: expiratory wheeze (diffuse), respiratory distress (mod, speaking in short sentences), No inspiratory crackles, No bronchial breath sounds Gastrointestinal: soft, non-tender abdomen, no palpable masses, No guarding, No rebound, No distension ICD10 Worksheet Patient Problems: Problems Problem Status Onset Upper GI bleed Acute Alcohol withdrawal delirium Acute Chronic obstructive pulmonary disease with acute exacerbation Acute
[2018-04-04] MEDS ORDERED: IOPAMIDOL (ISOVUE-300) 100 ML BTL ONE (11:02)
[2018-04-04] MEDS ORDERED: LORazepam 0.5 MG TAB PO ONE (12:30)
--- NOTE | 2018-04-04 14:15 | PDINTPN ---
Computer Security Specialist Progress Note Assessment/Plan: 62 F with COPD and ETOH admitted 03/30 with COPD exacerbation. Cause unclear, but CXR unremarkable and respiratory panel negative. She required Bipap on arrival to ED (via EMS) but did not tolerate it well, though symptoms were apparently improving. She was given continuous nebs, Magnesium, azithromycin, and solumedrol, which was transitioned to prednisone. * COPD exacerbation- slow improvement. Changed to xopenex, prednisone, and dc azithromycin on 04/03. Titrate O2 to >90. Elevated HCO3 is new compared to 04/03 - artifact? No chronic CO2 retention seen on admission. Discussed oxygen in detail with patient this am. * Tachycardia- sinus tach with normal BP. Xopenex may have helped. She may have MAT, but treatment is conservative. * Extensive etoh history- reports being sober for 2-3 months. No current signs of WD * Liver- uncertain changes reported by radiology on CTA, possibly related to IV dye bolus timing, so repeat testing pending. * Bipolar- currently stable, continue outpatient meds of seroquel 200/day and 300 qhs. She is also getting fairly regular ativan prn * Dispo- stable for med/surg status Subjective: Continues to improve daily Objective: Vital Signs Temp Pulse Resp BP Pulse Ox 36.7 C 108 H 20 127/71 H 93 04/04/18 07:27 04/04/18 12:00 04/04/18 12:00 04/04/18 12:00 04/04/18 12:00 Laboratory Results 03/31/18 05:36 04/04/18 04:54 04/03/18 04/04/18 04/05/18 05:59 05:59 05:59 Intake Total 1800 1300 Output Total 2352 Balance -552 1300 Physical Exam - Physical Exam General Appearance: alert, no apparent distress, thin EENT: PERRL/EOMI Neck: supple Respiratory: wheezing, No respiratory distress, No accessory muscle use, No stridor Cardiac/Chest: regular rate, rhythm, No edema Abdomen: non-tender, soft, No distended, No hepatomegaly, No splenomegaly Skin: normal color, warm/dry, No cyanosis Lymphatic: no adenopathy Extremities: No pedal edema Neuro/Psych: alert, normal mood/affect, oriented x 3, No abnormal manager managed care II-XII ICD10 Worksheet Patient Problems: Problems Problem Status Onset Chronic obstructive pulmonary disease with acute exacerbation Acute Alcohol withdrawal delirium Acute Upper GI bleed Acute
--- NOTE | 2018-04-04 16:04 | ASMTCMCOM ---
CM Note CM Note Notes: Met with patient who had expressed some anxiety about returning home to see if their might be any resources to support her. Patient states she was mostly anxious about her coughing fits and the need for a special oxygen mask during those. Patient states she is doing so much better, her anxiety has been reduced. She also states during her last hospitalization, the CM had given her a notebook full of resources and she has that information to refer to. Patient reports her neighbor and friend Surjit of 30 years is close by and helps her when she has needs. Patient does pride herself on being independent but also will ask for help if she needs it. Left patient a card if needs arise and she decides she wants to talk to a cm again before she discharges home. Patient reports the is thinking she will be ready to go on Saturday. CM will follow. Date Signed: 04/04/2018 04:03 PM Electronically Signed By:Emma Manrique LCSW
[2018-04-04] MEDS: QUEtiapine FUMARATE 300 MG TAB PO SCH (20:22)
[2018-04-04] MEDS: BENZONATATE 100 MG CAP PO PRN (21:57)
[2018-04-05] MEDS: NICOTINE POLACRILEX 2 MG GUM B PRN ×6 (01:11→21:48)
[2018-04-05] MEDS: LORazepam 0.5 MG TAB PO PRN ×4 (05:17→22:10)
[2018-04-05] MEDS: LEVOTHYROXINE 112 MCG TAB PO SCH (05:17)
[2018-04-05] MEDS: LEVALBUTEROL 0.63 MG/3 ML DEYVIAL IH SCH ×4 (05:20→22:16)
[2018-04-05 06:26] LABS: PLATELET COUNT 298 10^3/uL (150-400)
[2018-04-05] MEDS: GUAIFENESIN/DM 10 ML UDCUP PO PRN (07:08)
[2018-04-05] MEDS: LISINOPRIL 20 MG TAB PO SCH (08:45)
[2018-04-05] MEDS: PANTOPRAZOLE SODIUM 40 MG TAB PO SCH (08:45)
[2018-04-05] MEDS: predniSONE 20 MG TAB PO SCH (08:45)
[2018-04-05] MEDS: BENZONATATE 100 MG CAP PO PRN (08:45)
[2018-04-05] MEDS: QUEtiapine FUMARATE 200 MG TAB PO SCH (08:45)
[2018-04-05] MEDS: TIOTROPIUM INHALER 18 MCG/DOSE 5 DOSE/MDI IH SCH (08:46)
[2018-04-05] MEDS: ENOXAPARIN 40 MG/0.4 ML SYR SC SCH (08:46)
[2018-04-05] MEDS: BUDESONIDE/FORMOTEROL 160/4.5 60 PUFFS/MDI IH SCH ×2 (08:47→22:17)
--- NOTE | 2018-04-05 09:25 | HOSPPROG ---
Hospitalist Progress Note Assessment/Plan: # COPD exacerbation - quite severe; completed coure of azith - cont pred, nebs; symbicort started - ongoing lab evidence of CO2 retention # AHRF - d/t above # hepatic abnormalities - will check US for further eval - AFP neg, LFTs nl # L2 compression fx - has underlying osetoporosis, though pathologic fracture suggested by radiology - needs appropriate cancer screening # tachycardia - improving; d/t resp failure # anxiety - ativan # htn - lisinopril, add norvasc # renal artery stenosis seen on CT - does not need intervention at this time # bipolar - stable, cont seroquel Subjective: feels better today; less SOB Objective: Vital Signs Temp Pulse Resp BP Pulse Ox 36.6 C 93 21 H 155/58 H 2 L 04/05/18 09:08 04/05/18 09:08 04/05/18 09:08 04/05/18 09:08 04/05/18 09:08 Laboratory Results 04/05/18 06:20 04/05/18 06:20 04/04/18 04/05/18 04/06/18 05:59 05:59 05:59 Intake Total 1300 900 Balance 1300 900 high risk needing ongoing inpatient management - Physical Exam Constitutional: no apparent distress, appears nourished Cardiovascular: regular rate and rhythym, no murmur, rub, or gallop Respiratory: expiratory wheeze (diffuse), respiratory distress (better; speaking in longer sentences), No bronchial breath sounds, No dullness to percussion Gastrointestinal: soft, non-tender abdomen, no palpable masses, No guarding, No rebound, No distension ICD10 Worksheet Patient Problems: Problems Problem Status Onset Upper GI bleed Acute Alcohol withdrawal delirium Acute Chronic obstructive pulmonary disease with acute exacerbation Acute
[2018-04-05] MEDS: amLODIPine BESYLATE 5 MG TAB PO SCH (09:43)
--- NOTE | 2018-04-05 09:50 | PDINTPN ---
Supervisory Aide Progress Note Assessment/Plan: 62 F with COPD and ETOH admitted 03/30 with COPD exacerbation. Cause unclear, but CXR unremarkable and respiratory panel negative. She required Bipap on arrival to ED (via EMS) but did not tolerate it well, though symptoms were apparently improving. She was given continuous nebs, Magnesium, azithromycin, and solumedrol, which was transitioned to prednisone. * COPD exacerbation- slow improvement. Changed to xopenex, prednisone, and dc azithromycin on 04/03. Titrate O2 to >90, but remains on low flow. Elevated HCO3 is new compared to 04/03- artifact? No chronic CO2 retention seen on admission. Discussed oxygen in detail with patient this am. Check abg to eval ( resp vs metabolic) * Tachycardia- sinus tach with normal BP. Xopenex may have helped. She may have MAT, but treatment is conservative. * Extensive etoh history- reports being sober for 2-3 months. No current signs of WD * Liver- uncertain changes reported by radiology on CTA, possibly related to IV dye bolus timing. Patient reports w/u for hep C in s with imaging that "looked like buckshot," with benign liver biopsy. Current film looks similar without hepatic mass. US pending * Bipolar- currently stable, continue outpatient meds of seroquel 200/day and 300 qhs. She is also getting fairly regular ativan prn * Dispo- probable dc home in am 04/05/18 09:47 Subjective: continues to improve and nearly ready for dc per patient. No abdominal pain, anorexia, unanticipated weight loss, jaundice. Objective: Vital Signs Temp Pulse Resp BP Pulse Ox 36.6 C 93 21 H 155/58 H 2 L 04/05/18 09:08 04/05/18 09:08 04/05/18 09:08 04/05/18 09:08 04/05/18 09:08 Laboratory Results 04/05/18 06:20 04/05/18 06:20 04/04/18 04/05/18 04/06/18 05:59 05:59 05:59 Intake Total 1300 900 Balance 1300 900 Physical Exam - Physical Exam General Appearance: alert, no apparent distress, thin EENT: PERRL/EOMI Neck: supple Respiratory: wheezing (much better), No respiratory distress, No accessory muscle use, No crackles, No rales Cardiac/Chest: regular rate, rhythm, No edema Abdomen: normal bowel sounds, non-tender, soft, No organomegaly, No pulsatile mass, No distended, No guarding Skin: normal color, warm/dry, No cyanosis, No jaundice, No rash Lymphatic: no adenopathy Extremities: No normal inspection, No pedal edema, No calf tenderness, No swelling Neuro/Psych: alert, normal mood/affect, oriented x 3, No abnormal public service representative II-XII ICD10 Worksheet Patient Problems: Problems Problem Status Onset Chronic obstructive pulmonary disease with acute exacerbation Acute Alcohol withdrawal delirium Acute Upper GI bleed Acute
[2018-04-05] MEDS: QUEtiapine FUMARATE 300 MG TAB PO SCH (21:48)
[2018-04-06] MEDS: GUAIFENESIN/DM 10 ML UDCUP PO PRN ×2 (00:13→14:45)
[2018-04-06] MEDS: LEVALBUTEROL 0.63 MG/3 ML DEYVIAL IH SCH ×4 (04:46→21:38)
[2018-04-06] MEDS: LEVOTHYROXINE 112 MCG TAB PO SCH (06:58)
[2018-04-06] MEDS: NICOTINE POLACRILEX 2 MG GUM B PRN ×8 (06:58→21:27)
[2018-04-06] MEDS ORDERED: NS 1,000 ML IV SCH (07:30)
[2018-04-06] MEDS: QUEtiapine FUMARATE 200 MG TAB PO SCH (08:23)
[2018-04-06] MEDS: BENZONATATE 100 MG CAP PO PRN (08:23)
[2018-04-06] MEDS: PANTOPRAZOLE SODIUM 40 MG TAB PO SCH (08:23)
[2018-04-06] MEDS: ENOXAPARIN 40 MG/0.4 ML SYR SC SCH (08:24)
[2018-04-06] MEDS: TIOTROPIUM INHALER 18 MCG/DOSE 5 DOSE/MDI IH SCH (08:24)
[2018-04-06] MEDS: BUDESONIDE/FORMOTEROL 160/4.5 60 PUFFS/MDI IH SCH ×2 (08:24→21:38)
[2018-04-06] MEDS: predniSONE 20 MG TAB PO SCH (08:24)
--- NOTE | 2018-04-06 08:49 | HOSPPROG ---
Hospitalist Progress Note Assessment/Plan: # COPD exacerbation - quite severe; completed coure of azith - cont pred, nebs; symbicort started - ongoing lab evidence of CO2 retention # AHRF - d/t above # hepatic abnormalities - will check US for further eval - AFP neg, LFTs nl # L2 compression fx - has underlying osetoporosis, though pathologic fracture suggested by radiology - needs appropriate cancer screening # tachycardia - improving; d/t resp failure # anxiety - ativan # htn - lisinopril, add norvasc # renal artery stenosis seen on CT - does not need intervention at this time # bipolar - stable, cont seroquel Objective: Vital Signs Temp Pulse Resp BP Pulse Ox 36.7 C 94 19 149/81 H 97 04/06/18 07:50 04/06/18 07:50 04/06/18 07:50 04/06/18 07:50 04/06/18 07:50 Laboratory Results 04/05/18 06:20 04/06/18 04:28 04/05/18 04/06/18 04/07/18 05:59 05:59 05:59 Intake Total 900 1625 Balance 900 1625 ICD10 Worksheet Patient Problems: Problems Problem Status Onset Upper GI bleed Acute Alcohol withdrawal delirium Acute Chronic obstructive pulmonary disease with acute exacerbation Acute
--- NOTE | 2018-04-06 09:39 | HOSPPROG ---
Hospitalist Progress Note Assessment/Plan: # COPD exacerbation - quite severe; completed coure of azith - cont pred, nebs; symbicort started - ongoing lab evidence of CO2 retention # AHRF - d/t above # hyperkalemia - suspect d/t mild GRACIELA - 1L NS - recheck BMP at noon # mild GRACIELA - suspect pre-renal - fluids and recheck # hepatic abnormalities - with normal AFP and LFTs, i think we can monitor and recheck in 6 months - will setup follow up with GI # L2 compression fx - has underlying osteoporosis, though pathologic fracture suggested by radiology - needs appropriate cancer screening # tachycardia - much improved, d/t resp failure # anxiety - ativan # htn - hold lisino with hyperK - incr norvasc # renal artery stenosis seen on CT - does not need intervention at this time # bipolar - stable, cont seroquel Subjective: continues to feel better overall Objective: Vital Signs Temp Pulse Resp BP Pulse Ox 36.7 C 94 19 149/81 H 97 04/06/18 07:50 04/06/18 07:50 04/06/18 07:50 04/06/18 07:50 04/06/18 07:50 Laboratory Results 04/05/18 06:20 04/06/18 04:28 04/05/18 04/06/18 04/07/18 05:59 05:59 05:59 Intake Total 900 1625 Balance 900 1625 CXR personally reviewed high risk - Physical Exam Constitutional: no apparent distress, appears nourished Cardiovascular: regular rate and rhythym, no murmur, rub, or gallop Respiratory: no respiratory distress, expiratory wheeze (improved), No inspiratory crackles, No bronchial breath sounds Gastrointestinal: soft, non-tender abdomen, no palpable masses, No guarding, No rebound, No distension ICD10 Worksheet Patient Problems: Problems Problem Status Onset Upper GI bleed Acute Alcohol withdrawal delirium Acute Chronic obstructive pulmonary disease with acute exacerbation Acute
[2018-04-06] MEDS: LISINOPRIL 20 MG TAB PO SCH (10:04)
[2018-04-06] MEDS: amLODIPine BESYLATE 5 MG TAB PO SCH (10:11)
[2018-04-06] MEDS: LORazepam 0.5 MG TAB PO PRN ×3 (11:05→21:26)
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
[2018-04-06] MEDS: QUEtiapine FUMARATE 300 MG TAB PO SCH (21:24)
[2018-04-07] MEDS: GUAIFENESIN/DM 10 ML UDCUP PO PRN (00:50)
[2018-04-07] MEDS: LEVALBUTEROL 0.63 MG/3 ML DEYVIAL IH SCH ×2 (05:27→11:10)
[2018-04-07] MEDS: LEVOTHYROXINE 112 MCG TAB PO SCH (05:40)
[2018-04-07] MEDS: NICOTINE POLACRILEX 2 MG GUM B PRN ×6 (06:18→13:53)
[2018-04-07 07:58] VITALS: BP 132/76
[2018-04-07] MEDS: ENOXAPARIN 40 MG/0.4 ML SYR SC SCH (08:07)
[2018-04-07] MEDS: BENZONATATE 100 MG CAP PO PRN (08:07)
[2018-04-07] MEDS: PANTOPRAZOLE SODIUM 40 MG TAB PO SCH (08:07)
[2018-04-07] MEDS: QUEtiapine FUMARATE 200 MG TAB PO SCH (08:07)
[2018-04-07] MEDS: predniSONE 20 MG TAB PO SCH (08:07)
[2018-04-07] MEDS: BUDESONIDE/FORMOTEROL 160/4.5 60 PUFFS/MDI IH SCH (08:08)
[2018-04-07] MEDS: TIOTROPIUM INHALER 18 MCG/DOSE 5 DOSE/MDI IH SCH (08:08)
[2018-04-07] MEDS: LISINOPRIL 20 MG TAB PO SCH (08:08)
[2018-04-07] MEDS: LORazepam 0.5 MG TAB PO PRN (11:11)
--- NOTE | 2018-04-07 12:03 | PDHOMEO2F ---
Home Oxygen Face to Face Home Orders: I certify that a physician or a nurse practitioner or physician's assistant nurse manager has had a [id number] encounter with this patient on the date of this order due to the diagnosis listed, which relates to the primary reason the patient requires home oxygen. Alternative treatments have been tried, or considered, and deemed ineffective. It is anticipated that supplemental oxygen will result in improvement with treatment. Home oxygen qualifying diagnosis: COPD SpO2 on room air (%): 85 Frequency of home oxygen needed: continuous Home oxygen liters per minute: 2 Home oxygen delivery device: nasal cannula Concentrator: Yes E-tanks for mobility and back up: Yes If ordering portable O2, is the patient mobile in the home?: Yes I certify that, based on these findings, the home oxygen is medically necessary for this patient for the following length of time. Length of time home oxygen needed: 3 months
--- NOTE | 2018-04-07 12:07 | PDIAF ---
- Diagnosis Diagnosis: COPD Exacerbation Code Status: Full Code - Medication Management Discharge Medications: Medications to Continue on Transfer QUEtiapine FUMARATE [Seroquel 300mg (*)] 300 mg PO HS 09/21/14 [Last Taken 03/30] Levothyroxine [Synthroid 112 mcg (*)] 112 mcg PO DAILY06 11/05/14 [Last Taken ] Meloxicam [Mobic 7.5 mg] 7.5 mg PO BID 11/05/14 [Last Taken 03/30/18] Budesonide/Formoterol 160/4.5 [Symbicort 160-4.5 Mcg Inh (*)] 1 puffs IH BID [Last Taken Unknown] Quetiapine Fumarate 200 mg PO DAILY 03/31/18 [Last Taken Unknown] Albuterol [Proventil Inhaler HFA (*)] 1 - 2 puffs IH Q4H PRN #1 mdi 04/07/18 [ Last Taken Unknown] Tiotropium Inhaler [Spiriva Handihaler] 18 mcg IH DAILY #1 mdi 04/07/18 [Last Taken Unknown] amLODIPine BESYLATE [Norvasc 10 mg (*)] 10 mg PO DAILY #30 tab 04/07/18 [Last Taken Unknown] predniSONE 20 mg PO DAILY #8 tablet 04/07/18 [Last Taken Unknown] Discharge Medications: Refer to the Discharge Home Medication list for PRN reason. - Orders Services needed: Home Care, Registered Nurse, Certified Opal Polisher Home Care Face to Face: I certify that this patient was under my care and that I had the required [id number] encounter meeting the encounter requirements on the discharge day. My findings support the fact that the patient is homebound as defined in Home Care Face to Face Continued: CMS Chapter 7 Medicare Benefits Manual 30.1.1 , The condition of the patient is such that there exists a normal inability to leave home and consequently, leaving home would require a considerable and taxing effort. Isolation Type: None Diet Recommendation: no restrictions on diet - Follow Up Care Current Providers and Referrals: NONE *PRIMARY CARE P,. [Unknown] - As per Instructions Tammy Nelson MD [Primary Care Provider] - (at your next scheduled appt) Kimo Ramirez MD [Medical Doctor] - (1-2 weeks)
--- NOTE | 2018-04-07 13:00 | GDS ---
DISCHARGE DIAGNOSES: 1. Chronic obstructive pulmonary disease with acute exacerbation. 2. Acute hypoxic respiratory failure. 3. Mild hyperkalemia. 4. Mild acute renal insufficiency. 5. Hepatic abnormalities. 6. L2 compression fracture. 7. Tachycardia. 8. Anxiety. 9. Hypertension. 10. Renal artery stenosis, seen on CT scan. 11. Bipolar disorder. HOSPITAL COURSE BY PROBLEM: 1. COPD exacerbation with acute hypoxic respiratory failure: She has significantly improved from th is. She completed a course of azithromycin. She has been on steroids as well as appropriate inhaler s. She is still requiring oxygen on discharge, she is around 85% on room air with no activity. I langford ve ordered home oxygen for her. Recommend that she go home with an albuterol inhaler as needed. Sym bicort, as well as Spiriva. She should follow up with Dr. Ramirez for ongoing management of her lung d isease. 2. Hepatic abnormalities: These were seen on her imaging. She does have a history of hepatitis C, which was treated in the past. She has normal LFTs, as well as a normal AFP. My suspicion for hepat ocellular carcinoma is low. She should probably have ongoing surveillance with ultrasounds at regula r intervals, approximately 6 months. 3. L2 compression fracture: She has no pain there. There is some concern that this may be patholog ic, though it seems much less likely given her overall symptoms. Would continue to follow this as an outpatient. 4. Hypertension: She was previously on lisinopril, have changed her to amlodipine, given her mild a cute kidney injury as well as hyperkalemia. 5. Renal artery stenosis: This was seen on CT imaging. I do not think this needs an intervention a t this time. 6. Bipolar: This has been stable, continue Seroquel. FOLLOWUP: 1. Dr. Ramirez for her pulmonary disease. 2. Dr. Nelson for her other issues. 3. As above, she should get an ultrasound at some point, around 6 months, to make sure that there langford s been no significant change in her liver. Antihypertensives were changed on this admission. She is now on oxygen as well. BILLING: I spent more than 30 minutes on the day of discharge coordinating care. DISPOSITION: She is discharged home in stable condition. I have written her a prescription for home care. /[id number]/MODL
--- NOTE | 2018-04-07 14:11 | ASMTDCNOTE ---
Case Management Discharge Discharge Order Complete? Answers: Yes Patient to Obtain Answers: Independently Medications Transportation Arranged Answers: Taxi - Self Pay Transport will Pick (Date 04/07/2018 02:00 PM & Time) Faxed Final Orders Answers: Yes Notes: HC Discharge Comments Notes: Patient has been discharged home. She would like [facility] to follow her for RN care at home. Patient not interested in Meals on Wheels. She will be taking a taxi home. Date Signed: 04/07/2018 02:10 PM Electronically Signed By:Mary Rushing LCSW
--- NOTE | 2018-04-07 14:18 | ASDISCHSUM ---
Discharge Information Plan Status:Home with Home Health Medically Cleared to Leave:04/07/2018 Discharge Date:04/07/2018 CM D/C Disposition:Home Health Service ADT D/C Disposition:Home, Routine, Self-Care Projected Discharge Date:04/07/2018 02:00 PM Transportation at D/C:Taxicab Discharge Delay Reason: Follow-Up Date:04/07/2018 02:00 PM Discharge Slot:2 - 12:01 pm - 18:00 pm Final Diagnosis:SOB, COPD exascerbation Placement Information Referral Type:*Home Health Care Services Referral ID:[id number] Provider [facility] Care Address [address] Address 2: City:[place] Selection Factors: State:[place] Patient Contact Information Contact Name:TERRYBUNTING Relationship:Friend Address: Work Phone: City:[place] Alternate Phone: State/Zip Code:[place] Email: Financial Information Financial Class:Medicare Advantage Plans Primary Plan Desc:[facility] [employer] Primary Plan Number:[id number] Secondary Plan Desc: Secondary Plan Number: Assessment Information LACE LACE Acuity / Level of Answers: Yes Care: Did the patient have an inpatient admission? Comorbidities - select Answers: Chronic pulmonary disease all that apply Connective tissue disease Opioid dependence / Chronic pain Other Notes: HTN; Hypothyroid; Hep C # of Emergency department Answers: 1-2 visits in the last 6 months Social determinants Answers: History of substance abuse (ETOH, street drugs, prescription drugs, etc.) Mental health diagnosis (anxiety, depression, pers onality disorders, etc.) Score: 20 Date Signed: 03/31/2018 08:56 AM Electronically Signed By:Trish Piña [facility] CM Progress Note CM Note CM Note Notes: 62yr old female admitted for SOB, COPD exascerbation. She has a Hx of COPD, Former smoker, HTN, ETOH abuse-W/D w/Sz, Hypothyroid, UGIB, Bipolar. Patient lives alone. May not have discharge needs. CM to follow. Date Signed: 03/31/2018 09:02 AM Electronically Signed By:Mary Rushing [facility] Progress Note CM Note CM Note Notes: Patient will most likely d/c independent. CM available if d/c needs arise. Date Signed: 04/02/2018 12:05 PM Electronically Signed By:Emma Manrique LCSW [facility] CM Progress Note CM Note CM Note Notes: Met with patient who had expressed some anxiety about returning home to see if their might be any resources to support her. Patient states she was mostly anxious about her coughing fits and the need for a special oxygen mask during those. Patient states she is doing so much better, her anxiety has been reduced. She also states during her last hospitalization, the CM had given her a notebook full of resources and she has that information to refer to. Patient reports her neighbor and friend Surjit of 30 years is close by and helps her when she has needs. Patient does pride herself on being independent but also will ask for help if she needs it. Left patient a card if needs arise and she decides she wants to talk to a cm again before she discharges home. Patient reports the is thinking she will be ready to go on Saturday. CM will follow. Date Signed: 04/04/2018 04:03 PM Electronically Signed By:Emma Manrique LCSW Case Management Discharge Plan Note Case Management Discharge Discharge Order Complete? Answers: Yes Patient to Obtain Answers: Independently Medications Transportation Arranged Answers: Taxi - Self Pay Transport will Pick (Date 04/07/2018 02:00 PM & Time) Faxed Final Orders Answers: Yes Notes: [facility] Discharge Comments Notes: Patient has been discharged home. She would like [facility] to follow her for RN care at home. Patient not interested in Meals on Wheels. She will be taking a taxi home. Date Signed: 04/07/2018 02:10 PM Electronically Signed By:Mary Rushing LCSW Intervention Information Intervention Type:*IM-Signed Date of Service:04/07/2018 12:32 PM Patient Type:Inpatient Staff Member:Trish Piña Hours: Discipline: Severity: Comment:
== END 2018-04-07 14:15 | disposition home or self-care (01) | DRG 190 ==
LOC: EDUNIT# → F2N 23:55
PROVIDERS: ADMIT Student in an Organized Health Care Education/Training Program; ATTEND Student in an Organized Health Care Education/Training Program
DX: J44.1 Chronic obstructive pulmonary disease with (acute) exacerbation (principal); J96.01 Acute respiratory failure with hypoxia; E87.5 Hyperkalemia; N17.9 Acute kidney failure, unspecified; G89.29 Other chronic pain; R00.0 Tachycardia, unspecified; I70.1 Atherosclerosis of renal artery; M80.08XD Age-related osteoporosis with current pathological fracture, vertebra(e), subsequent encounter for fracture with routine healing; F31.9 Bipolar disorder, unspecified; F41.9 Anxiety disorder, unspecified; E03.9 Hypothyroidism, unspecified; I10 Essential (primary) hypertension; I73.00 Raynaud's syndrome without gangrene; F17.210 Nicotine dependence, cigarettes, uncomplicated; Z86.19 Personal history of other infectious and parasitic diseases; Z87.01 Personal history of pneumonia (recurrent)
CPT/HCPCS: 96365; G0480; J1650; J2930; J3475; J7512; J7608; J7613; Q9967

== ENCOUNTER 2018-04-13 11:50 | Emergency (ER) | payer OTHER ==
--- NOTE | 2018-04-13 12:09 | EDPHY ---
H & P Stated Complaint: STEWART and not sleeping x48 hrs;thinks it's due to prednisone Time Seen by Provider: 04/13/18 12:07 HPI/ROS: HPI: This is a 62-year-old female who presents with Chief Complaint: STEWART and not sleeping x48 hrs; thinks it's due to prednisone Location:head Quality: Aching Duration: 24-48 hours Signs and Symptoms: no fever, no nausea, no vomiting, no photophobia, no noise sensitivity, no neck stiffness, no ear pain, no tinnitus, no nasal congestion, no sinus pressure, no weakness, no radiation, no aura, + insomnia Timing: Acute, constant Severity: Moderate Context: Patient has a history of COPD, with recent hospitalization for pneumonia and discharged on 04/08/2018; she is on day 4 of 5 of oral steroid, presents with complaints of feeling jittery, anxious, generalized headache that is not a thunderclap or worst of her life, and insomnia times 48 hr. She believes that this may be related to the steroids as this is happened to her in the past. She reports that she is breathing better and no longer requiring oxygen. She denies fever, cough, wheezing. Denies any hallucinations, homicidal ideation, suicidal ideation. Modifying Factors: None Comment: ROS: A comprehensive 10 system review of systems is otherwise negative aside from elements mentioned in the history of present illness. MEDICAL/SURGICAL/SOCIAL HISTORY: Medical history: COPD, HTN, mixed connective tissue disorder, hypothyroid, chronic pain, HL, reports bipolar, etoh, smoker, hep c+,pneumonia,psych Surgical history: Denies Social history: Does not car. Family history noncontributory. CONSTITUTIONAL: well-appearing elderly white female who appears older than stated age, awake and alert, no obvious distress HEENT: Atraumatic and normocephalic, PERRL, EOMI. Nares patent; no rhinorrhea; no nasal mucosal edema. Tympanic membranes clear. Oropharynx clear, no exudate and moist pink mucosa. Airway patent. No lymphadenopathy. No meningismus. Cardiovascular: Normal S1/S2, mild tachycardia, regular rhythm, without murmur rub or gallop. PULMONARY/CHEST: Symmetrical and nontender. Clear to auscultation bilaterally. Good air movement. No accessory muscle usage. ABDOMEN: Soft, nondistended, nontender, no rebound, no guarding, no peritoneal signs, no masses or organomegaly. No CVAT. EXTREMITIES: 2/2 pulses, strength 5/5, no deformities, no clubbing, no cyanosis or edema. NEUROLOGICAL: no focal neuro deficits. GCS 15. SKIN: Warm and dry, pallor, no erythema. no rash. Good capillary refill. Source: Patient Exam Limitations: No limitations - Personal History Current Tetanus Diphtheria and Acellular Pertussis (TDAP): Yes Tetanus Vaccine Date: Within 5 years. - Medical/Surgical History Hx Asthma: No Hx Chronic Respiratory Disease: Yes Hx Diabetes: No Hx Cardiac Disease: No Hx Renal Disease: No Hx Cirrhosis: No Hx Alcoholism: Yes Hx HIV/AIDS: No Hx Splenectomy or Spleen Trauma: No Other PMH: COPD, HTN, mixed connective tissue disorder, hypothyroid, chronic pain, HL, reports bipolar, etoh, smoker, hep c+,pneumonia,psych - Social History Smoking Status: Former smoker Constitutional: Initial Vital Signs Temperature (C) 36.5 C 04/13/18 11:52 Heart Rate 106 H 04/13/18 11:52 Respiratory Rate 18 04/13/18 11:52 Blood Pressure 160/77 H 04/13/18 11:52 O2 Sat (%) 96 04/13/18 11:52 O2 Delivery Mode Room Air Allergies/Adverse Reactions: hydrochlorothiazide Allergy (Intermediate, Verified 04/13/18 11:52) Seizures Home Medications: Medication Instructions Recorded QUEtiapine FUMARATE [Seroquel 300 mg PO HS 09/21/14 300mg (*)] Levothyroxine [Synthroid 112 mcg 112 mcg PO DAILY06 11/05/14 (*)] Meloxicam [Mobic 7.5 mg] 7.5 mg PO BID 11/05/14 Budesonide/Formoterol 160/4.5 1 puffs IH BID 03/31/18 [Symbicort 160-4.5 Mcg Inh (*)] Quetiapine Fumarate 200 mg PO DAILY 03/31/18 Albuterol [Proventil Inhaler HFA 1 - 2 puffs IH Q4H PRN #1 mdi 04/07/18 (*)] Tiotropium Inhaler [Spiriva 18 mcg IH DAILY #1 mdi 04/07/18 Handihaler] amLODIPine BESYLATE [Norvasc 10 mg 10 mg PO DAILY #30 tab 04/07/18 (*)] predniSONE 20 mg PO DAILY #8 tablet 04/07/18 LORazepam [Ativan] 0.5 mg PO Q12 PRN #10 tablet 04/13/18 Medical Decision Making ED Course/Re-evaluation: Vital signs reviewed and show mild tachycardia. No LOC, no neurological deficits to warrant emergent MRI of the brain Suspect this is related to steroid side effect. Given 500 cc normal saline, IV Ativan 1 mg and IV Benadryl 50 mg 1310: Reassessed patient who has been sleeping for the last 1 and 0.5 hr. Patient will be discharged home with a script for a small amount of Ativan and PCP follow-up. This patient was seen under the supervision of my secondary supervising physician. I evaluated care for this patient independently. Discussed this patient with Dr. Rawls. Differential Diagnosis: Headache including but not limited to subarachnoid hemorrhage, migraine headache , tension headache and infectious causes such as meningitis, pharyngitis and sinusitis. - Data Points Medications Given: Discontinued Medications Diphenhydramine HCl (Benadryl Injection) 50 mg IVP EDNOW ONE Stop: 04/13/18 12:15 Last Admin: 04/13/18 12:30 Dose: 50 mg Sodium Chloride (Ns) 500 mls @ 1,000 mls/hr IV EDNOW ONE PRN Reason: Protocol Stop: 04/13/18 12:44 Last Admin: 04/13/18 12:29 Dose: 500 mls Lorazepam (Ativan Injection) 1 mg IVP EDNOW ONE Stop: 04/13/18 12:15 Last Admin: 04/13/18 12:30 Dose: 1 mg Departure - Departure Disposition: Home, Routine, Self-Care Clinical Impression: Adverse effect of prednisone Qualifiers: Encounter type: initial encounter Qualified Code(s): T38.0X5A - Adverse effect of glucocorticoids and synthetic analogues, initial encounter Condition: Good Instructions: Adverse Drug Reaction (ED) Additional Instructions: Stop taking prednisone. Consume a minimum of 8-10 glasses of water or electrolyte fluid replacement drinks that include Gatorade, Powerade, Pedialyte. Avoid taking any caffeine. Take Ativan 0.5 mg every 12 hr as needed for severe anxiety. Follow-up with primary care provider in 3-4 days, if symptoms persist. Referrals: Tammy Nelson MD [Primary Care Provider] - 3-4 days, if not improved Prescriptions: LORazepam [Ativan] 0.5 mg PO Q12 PRN #10 tablet PRN Reason: Anxiety
[2018-04-13] MEDS ORDERED: LORazepam 2 MG/ML INJ IVP ONE (12:14)
[2018-04-13] MEDS ORDERED: NS 500 ML IV ONE (12:15)
[2018-04-13 13:26] VITALS: BP 130/74
== END 2018-04-13 13:46 | disposition home or self-care (01) ==
DX: T38.0X5A Adverse effect of glucocorticoids and synthetic analogues, initial encounter (principal); E86.9 Volume depletion, unspecified; I10 Essential (primary) hypertension; J44.9 Chronic obstructive pulmonary disease, unspecified; E03.9 Hypothyroidism, unspecified; B19.20 Unspecified viral hepatitis C without hepatic coma; Z87.891 Personal history of nicotine dependence
CPT/HCPCS: 96361; 96374; 99284; J1200; J2060

== ENCOUNTER 2018-04-15 04:16 | Emergency (ER) | payer OTHER ==
[2018-04-15 04:26] VITALS: BP 142/76
[2018-04-15] MEDS ORDERED: TDAP ADULT 0.5 ML INJ (BOOSTRIX) IM ONE (04:29)
--- NOTE | 2018-04-15 04:31 | EDPHY ---
H & P Stated Complaint: ETOH Time Seen by Provider: 04/15/18 04:21 HPI/ROS: HPI The patient presents with alcohol intoxication on [facility] hold. The patient called 911 twice tonight. Initially she was cleared by police. Then there was another call from neighbors because of noise. The patient was found by herself in her home which was fairly disorganized with an empty bottle of whiskey near by. She was yelling and appeared intoxicated. She also had bleeding from her finger. She was brought here for further care. As the patient denies any complaints currently. She does admit to drinking alcohol. She was in the ER a few days ago and has a history of COPD. As she was given a prescription for lorazepam which she has taken all the pills of according to the paramedics.. REVIEW OF SYSTEMS 10 systems were reviewed and negative with the exception of the elements mentioned in the history of present illness. PMHx: COPD, unsure of last tetanus vaccine, hypertension, history of bipolar disorder per her report Soc Hx: Lives alone, chronic alcohol abuse PHYSICAL General Appearance: Alert, obviously intoxicated Eyes: Pupils equal and round no pallor or injection ENT, Mouth: Mucous membranes moist Respiratory: There are no retractions, lungs are clear to auscultation Cardiovascular: Regular rate and rhythm Gastrointestinal: Abdomen is soft and non-tender, no masses, bowel sounds normal Neurological: A&O, moves all extremities Skin: Warm and dry, no rashes Musculoskeletal: Neck is supple non tender Extremities: symmetrical, full range of motion , right ring finger with superficial abrasion Psychiatric: Patient is oriented X 3, somewhat pressured speech Source: Patient, Police, EMS, Old records Exam Limitations: Intoxication - Personal History Current Tetanus/Diphtheria Vaccine: Yes Current Tetanus Diphtheria and Acellular Pertussis (TDAP): Yes Tetanus Vaccine Date: Within 5 years. - Medical/Surgical History Hx Asthma: No Hx Chronic Respiratory Disease: Yes Hx Diabetes: No Hx Cardiac Disease: No Hx Renal Disease: No Hx Cirrhosis: No Hx Alcoholism: Yes Hx HIV/AIDS: No Hx Splenectomy or Spleen Trauma: No Other PMH: COPD, HTN, mixed connective tissue disorder, hypothyroid, chronic pain, HL, reports bipolar, etoh, smoker, hep c+,pneumonia,psych - Social History Smoking Status: Former smoker Constitutional: Initial Vital Signs Temperature (C) 36.6 C 04/15/18 04:20 Heart Rate 96 10/30/18 04:20 Respiratory Rate 16 04/15/18 04:20 Blood Pressure 142/76 H 04/15/18 04:20 O2 Sat (%) 93 04/15/18 04:20 O2 Delivery Mode Room Air Allergies/Adverse Reactions: hydrochlorothiazide Allergy (Intermediate, Verified 04/15/18 04:26) Seizures Home Medications: Medication Instructions Recorded QUEtiapine FUMARATE [Seroquel 300 mg PO HS 09/21/14 300mg (*)] Levothyroxine [Synthroid 112 mcg 112 mcg PO DAILY06 11/05/14 (*)] Meloxicam [Mobic 7.5 mg] 7.5 mg PO BID 11/05/14 Budesonide/Formoterol 160/4.5 1 puffs IH BID 03/31/18 [Symbicort 160-4.5 Mcg Inh (*)] Quetiapine Fumarate 200 mg PO DAILY 03/31/18 Albuterol [Proventil Inhaler HFA 1 - 2 puffs IH Q4H PRN #1 mdi 04/07/18 (*)] Tiotropium Inhaler [Spiriva 18 mcg IH DAILY #1 mdi 04/07/18 Handihaler] amLODIPine BESYLATE [Norvasc 10 mg 10 mg PO DAILY #30 tab 04/07/18 (*)] predniSONE 20 mg PO DAILY #8 tablet 04/07/18 LORazepam [Ativan] 0.5 mg PO Q12 PRN #10 tablet 04/13/18 Medical Decision Making Differential Diagnosis: 62-year-old female with COPD, hypertension, bipolar disorder, alcohol abuse presents with alcohol intoxication. Here, she has a an abrasion on her finger which we have cleaned and we have updated her tetanus vaccine. She does not have any other signs of injury. I do not believe she has any head injury. She seems to be intoxicated only. We [facility]. Departure - Departure Disposition: Home, Routine, Self-Care Clinical Impression: Alcoholic intoxication Qualifiers: Complication of substance-induced condition: with delirium Qualified Code(s): F10.921 - Alcohol use, unspecified with intoxication delirium Finger abrasion Qualifiers: Encounter type: initial encounter Qualified Code(s): S60.419A - Abrasion of unspecified finger, initial encounter Condition: Good Instructions: At-Risk Alcohol Use (ED) Additional Instructions: Please return to the emergency department if your worse in any way. Referrals: Tammy Nelson MD [Primary Care Provider] - As per Instructions
== END 2018-04-15 04:40 | disposition home or self-care (01) ==
LOC: EDUNIT#
DX: F10.921 Alcohol use, unspecified with intoxication delirium (principal); S60.419A Abrasion of unspecified finger, initial encounter; I10 Essential (primary) hypertension; E03.9 Hypothyroidism, unspecified; Z87.891 Personal history of nicotine dependence; Z23 Encounter for immunization

== ENCOUNTER 2018-04-18 02:53 | Inpatient (IN) | payer OTHER ==
[2018-04-18] MEDS ORDERED: LORazepam 2 MG/ML INJ IVP ONE (02:58)
[2018-04-18] MEDS ORDERED: NS 1,000 ML IV ONE (02:58)
--- NOTE | 2018-04-18 03:06 | EDPHY ---
H & P Time Seen by Provider: 04/18/18 03:02 HPI/ROS: HPI CHIEF COMPLAINT: Left chest wall pain, chest pain, alcohol intoxication, acute psychosis HISTORY OF PRESENT ILLNESS: 62-year-old female, she has a history of bipolar disorder as well as COPD, hypertension, alcohol abuse daily alcoholism, hepatitis-C, presents emergency room by ambulance for left-sided anterior chest wall pain and chest pain. She called 911 stating she developed some chest discomfort approximately an hour ago. It hurts when she moves, hurts when she takes deep breath in additionally hurts when you press on her left anterior lateral chest wall. No crepitus. Of note here in the Emergency Room the patient has pressured speech, laughing uncontrollably, appears acutely psychotic. She also appears to be intoxicated alcohol. Smells of alcohol slurring her speech. She did receive full-dose aspirin prior to arrival as well as 1 mg IM Versed. Additionally head to toe exam shows extensive ecchymosis throughout her body back and front. Also skin tears present left shoulder. Unclear if she fell. Patient does not really recall. Past Medical History: History of bipolar disorder, COPD, hypertension, alcohol , hep C Past Surgical History: Recent surgery Social History: Alcohol this evening. Reports to bottles of wine. Family History: Noncontributory ROS REVIEW OF SYSTEMS: Limited due to patient's mental state and presentation. Exam Constitutional intoxicated, smells of alcohol triage nursing summary reviewed, vital signs reviewed, awake/alert. Eyes normal conjunctivae and sclera, EOMI, PERRLA. Horizontal beating nystagmus consistent acute alcohol intoxication HENT normal inspection, atraumatic, moist mucus membranes, no epistaxis, neck supple/ no meningismus, no raccoon eyes. Respiratory clear to auscultation bilaterally, normal breath sounds, no respiratory distress, no wheezing. Cardiovascular tender palpation left lateral chest wall underneath the left breast fold, no crepitus, rate normal, regular rhythm, no murmur, no edema, distal pulses normal. Gastrointestinal soft, non-tender, no rebound, no guarding, normal bowel sounds, no distension, no pulsatile mass. Genitourinary no CVA tenderness. Musculoskeletal no midline vertebral tenderness, full range of motion, no calf swelling, no tenderness of extremities, no meningismus, good pulses, neurovascularly intact. Skin extensive ecchymosis throughout her body. Multiple skin tears left shoulder. Left forearm. Neurologic awake, alert and oriented x 3, AAOx3, moves all 4 extremities equally, motor intact, sensory intact, CN II-XII intact, normal cerebellar, normal vision, slurring her speech. Psychiatric normal mood/affect. Heme/Lymph/Immune no lymphadenopathy. 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 Chest x-ray to rule out pneumothorax rib fractures. EKG troponin. Electrolytes, alcohol level. Re-evaluation: EKG interpretation by me on record in [email or web address] system. Impression time of EKG 3:10 a.m., sinus tach 108 without any signs of acute ischemia no ST elevation or ST depression no T-wave abnormalities. Serum alcohol level 220. CT scan of the chest with IV contrast for left chest wall trauma negative for acute traumatic injury no pneumothorax no pulmonary contusion, no rib fracture. I spoke with Dr. Benavidez, agrees to admit. Patient need to be admitted for fall risk, failure to thrive, generalized weakness, alcohol intoxication, left chest wall pain, extensive skin bruising, extensive skin tears. She lives alone. Source: Patient, EMS - Personal History Tetanus Vaccine Date: Within 5 years. - Medical/Surgical History Hx Asthma: No Hx Chronic Respiratory Disease: Yes Hx Diabetes: No Hx Cardiac Disease: No Hx Renal Disease: No Hx Cirrhosis: No Hx Alcoholism: Yes Hx HIV/AIDS: No Hx Splenectomy or Spleen Trauma: No Other PMH: COPD, HTN, mixed connective tissue disorder, hypothyroid, chronic pain, HL, reports bipolar, etoh, smoker, hep c+,pneumonia,psych - Social History Smoking Status: Former smoker Constitutional: Initial Vital Signs Temperature (C) 36.8 C 04/18/18 02:55 Heart Rate 123 H 04/18/18 02:55 Respiratory Rate 18 04/18/18 02:55 Blood Pressure 181/112 H 04/18/18 02:55 O2 Sat (%) 114 H 04/18/18 02:55 O2 Delivery Mode Nasal Cannula O2 (L/minute) 2 Allergies/Adverse Reactions: hydrochlorothiazide Allergy (Intermediate, Verified 04/18/18 03:12) Seizures Home Medications: Medication Instructions Recorded QUEtiapine FUMARATE [Seroquel 300 mg PO HS 09/21/14 300mg (*)] Levothyroxine [Synthroid 112 mcg 112 mcg PO DAILY06 11/05/14 (*)] Meloxicam [Mobic 7.5 mg] 7.5 mg PO DAILY 11/05/14 Budesonide/Formoterol 160/4.5 1 puffs IH BID PRN 03/31/18 [Symbicort 160-4.5 Mcg Inh (*)] Quetiapine Fumarate 200 mg PO DAILY 03/31/18 Albuterol [Proventil Inhaler HFA 1 - 2 puffs IH Q4H PRN #1 mdi 04/07/18 (*)] amLODIPine BESYLATE [Norvasc 10 mg 10 mg PO DAILY #30 tab 04/07/18 (*)] LORazepam [Ativan] 0.5 mg PO Q12 PRN #10 tablet 04/13/18 predniSONE 10 mg PO DAILY 04/18/18 Medical Decision Making - Data Points Laboratory Results: Laboratory Results 04/18/18 03:10 04/18/18 03:10 Medications Given: Hydrocodone Bitart/Acetaminophen ([place] 5/325) 1 - 2 tab PO Q6H PRN PRN Reason: Pain, Moderate Able to Take PO Stop: 04/28/18 07:24 Last Admin: 04/20/18 21:33 Dose: 1 tab Albuterol (Proventil Neb) 3 ml IH Q2HRS PRN PRN Reason: Short of Breath/Dyspnea Stop: 10/15/18 07:24 Last Admin: 04/19/18 09:47 Dose: 3 ml Albuterol/Ipratropium (Duoneb) 3 ml IH QID [facility] Stop: 10/16/18 15:59 Last Admin: 04/20/18 21:08 Dose: 3 ml Amlodipine Besylate (Norvasc) 10 mg PO DAILY [facility] Stop: 10/15/18 12:44 Last Admin: 04/20/18 08:45 Dose: 10 mg Budesonide/Formoterol Fumarate (Symbicort 160-4.5 Mcg Inhaler) 1 puffs IH BID [facility] Stop: 10/15/18 20:59 Last Admin: 04/20/18 21:08 Dose: Not Given Enoxaparin Sodium (Lovenox) 40 mg SC DAILY [facility] Stop: 10/15/18 08:59 Last Admin: 04/20/18 08:43 Dose: 40 mg Levothyroxine Sodium (Synthroid) 112 mcg PO DAILY06 [facility] Stop: 10/15/18 12:44 Last Admin: 04/20/18 04:15 Dose: 112 mcg Miscellaneous Information (Patch Removal) 1 ea TD DAILY21 [facility] Stop: 10/15/18 20:59 Last Admin: 04/19/18 20:46 Dose: 1 ea Miscellaneous Medication (Icy Hot Lidocaine/Menthol 4%/1% Patch) 1 patch TD DAILY [facility] Stop: 10/15/18 08:59 Last Admin: 04/20/18 08:43 Dose: 1 patch Multivitamins (Tab-A-Diane) 1 each PO DAILY [facility] Stop: 10/15/18 08:59 Last Admin: 04/20/18 08:45 Dose: 1 each Nicotine Polacrilex (Nicorette) 2 mg B PRN PRN PRN Reason: Nicotine Withdrawal Stop: 10/15/18 13:12 Last Admin: 04/19/18 04:00 Dose: 2 mg Pantoprazole Sodium (Protonix) 40 mg PO DAILY [facility] Stop: 10/15/18 13:44 Last Admin: 04/20/18 08:44 Dose: 40 mg Prednisone (Prednisone) 10 mg PO DAILY [facility] Stop: 10/15/18 12:44 Last Admin: 04/20/18 08:44 Dose: 10 mg Quetiapine Fumarate (Seroquel) 100 mg PO DAILY [facility] Stop: 10/16/18 08:59 Last Admin: 04/20/18 08:44 Dose: 100 mg Quetiapine Fumarate (Seroquel) 300 mg PO HS [facility] Stop: 10/15/18 20:59 Last Admin: 04/20/18 21:33 Dose: 300 mg Wine (White Wine) 120 ml PO BID@1500,2100 [facility] Stop: 10/17/18 14:59 Last Admin: 04/20/18 20:37 Dose: 120 ml Discontinued Medications Hydrocodone Bitart/Acetaminophen ([place] 5/325) 1 - 2 tab PO Q4HRS PRN PRN Reason: Pain, Moderate Able to Take PO Stop: 04/28/18 07:24 Last Admin: 04/18/18 11:57 Dose: 1 tab Sodium Chloride (Ns) 1,000 mls @ 0 mls/hr IV EDNOW ONE; Wide Open PRN Reason: Protocol Stop: 04/18/18 02:59 Last Admin: 04/18/18 03:19 Dose: 1,000 mls Sodium Chloride (Ns) 1,000 mls @ 75 mls/hr IV CONT [facility] Stop: 10/15/18 07:29 Last Admin: 04/18/18 21:52 Dose: 1,000 mls Thiamine HCl 500 mg/ Sodium (Chloride) 105 mls @ 210 mls/hr IV DAILY [facility] Stop: 04/21/18 08:59 Last Admin: 04/18/18 08:55 Dose: 105 mls Thiamine HCl 500 mg/ Sodium (Chloride) 105 mls @ 210 mls/hr IV Q8H [facility] Stop: 04/21/18 13:59 Last Admin: 04/18/18 16:07 Dose: Not Given Thiamine HCl 500 mg/ Sodium (Chloride) 105 mls @ 210 mls/hr IV Q8H [facility] Stop: 10/15/18 16:59 Last Admin: 04/20/18 08:43 Dose: 105 mls Lorazepam (Ativan Injection) 1 mg IVP EDNOW ONE Stop: 04/18/18 02:59 Last Admin: 04/18/18 03:19 Dose: 1 mg Lorazepam (Ativan Injection) 0 mg IVP Q1H PRN; Protocol PRN Reason: Alcohol Withdrawal w/IV access Stop: 10/15/18 07:30 Last Admin: 04/18/18 07:43 Dose: 2 mg Lorazepam (Ativan) 0.5 mg PO Q12 PRN PRN Reason: Anxiety Stop: 10/15/18 12:42 Last Admin: 04/20/18 14:13 Dose: 0.5 mg Nicotine (Nicoderm Cq) 14 mg TD DAILY [facility] Stop: 10/15/18 12:59 Last Admin: 04/18/18 13:14 Dose: Not Given Quetiapine Fumarate (Seroquel) 200 mg PO DAILY [facility] Stop: 10/15/18 12:44 Last Admin: 04/18/18 13:06 Dose: 200 mg Quetiapine Fumarate (Seroquel) 150 mg PO HS [facility] Stop: 10/15/18 20:59 Last Admin: 04/18/18 21:49 Dose: 150 mg Wine (White Wine) 120 ml PO DAILY AT 6PM [facility] Stop: 10/15/18 17:59 Last Admin: 04/19/18 21:21 Dose: Not Given Point of Care Test Results: Chemistry 04/18/18 03:15 POC Troponin I 0.01 ng/mL ng/mL (0.00-0.08) Departure - Departure Disposition: [facility] Inpatient Acute Clinical Impression: Failure to thrive in adult, Skin tear of left upper extremity Alcohol intoxication Qualifiers: Complication of substance-induced condition: uncomplicated Qualified Code(s): F10.920 - Alcohol use, unspecified with intoxication, uncomplicated Chest pain Qualifiers: Chest pain type: unspecified Qualified Code(s): R07.9 - Chest pain, unspecified Condition: Fair
[2018-04-18 03:20] LABS: PLATELET COUNT 315 10^3/uL (150-400)
[2018-04-18 03:28] LABS: INR 0.89 (0.83-1.16); PROTIME(PATIENT) 12.3 SEC (12.0-15.0)
[2018-04-18] MEDS ORDERED: IOPAMIDOL (ISOVUE-300) 100 ML BTL ONE (03:33)
--- NOTE | 2018-04-18 06:02 | CPEKG ---
Test Reason : OPEN Blood Pressure : / mmHG Vent. Rate : 108 BPM Atrial Rate : 316 BPM P-R Int : 161 ms QRS Dur : 071 ms QT Int : 327 ms P-R-T Axes : -32 014 014 degrees QTc Int : 439 ms Ectopic atrial tachycardia, unifocal Confirmed by Zane Barber ([id number]) on 04/18/2018 6:01:58 AM Referred By: Confirmed By:Zane Barber
[2018-04-18] MEDS ORDERED: LORazepam 0.5 MG TAB PO PRN (07:25)
[2018-04-18] MEDS ORDERED: ALBUTEROL 3 ML DEYVIAL IH PRN (07:25)
[2018-04-18] MEDS ORDERED: diphenhydrAMINE 25 MG CAP PO PRN (07:25)
[2018-04-18] MEDS ORDERED: ACETAMINOPHEN 325 MG TAB PO PRN (07:25)
[2018-04-18] MEDS ORDERED: ONDANSETRON 4 MG/2 ML VIAL IVP PRN (07:25)
[2018-04-18] MEDS ORDERED: ONDANSETRON DISINTEGRATING 4 MG TAB PO PRN (07:25)
[2018-04-18] MEDS ORDERED: LORazepam 2 MG/ML INJ IVP PRN (07:31)
[2018-04-18] MEDS ORDERED: FLUMAZENIL 0.5 MG/5 ML MDV IVP PRN (07:31)
[2018-04-18] MEDS ORDERED: D50W 25 GM/50 ML SYR IVP PRN (07:34)
[2018-04-18] MEDS: MULTIVITAMINS 1 EACH TAB PO SCH (07:44)
[2018-04-18] MEDS: HYDROCODONE/APAP 5/325 TAB PO PRN ×3 (07:44→20:28)
[2018-04-18] MEDS: ENOXAPARIN 40 MG/0.4 ML SYR SC SCH (07:47)
--- NOTE | 2018-04-18 08:05 | ASMTLACE ---
[facility]ASSIE Comorbidities - select Answers: Chronic pulmonary disease all that apply Opioid dependence / Chronic pain Other Notes: HTN; Hep C # of Emergency department Answers: 3-4 visits in the last 6 months Social determinants Answers: History of substance abuse (ETOH, street drugs, prescription drugs, etc.) Mental health diagnosis (anxiety, depression, pers onality disorders, etc.) Score: 16 Date Signed: 04/18/2018 08:05 AM Electronically Signed By:Trish Piña
[2018-04-18] MEDS: LIDOCAINE 4%/MENTHOL 1% PATCH TD SCH (08:25)
[2018-04-18] MEDS: NS 1,000 ML IV SCH ×2 (08:55→21:52)
--- NOTE | 2018-04-18 08:58 | PDGENHP ---
History and Physical - Chief Complaint fall, intoxication, chest wall pain - History of Present Illness 62 yo female with h/o bipolar disorder, COPD and alcohol abuse presents to ED via EMS reporting chest pain. She is intoxicated on arrival with BAL 220. She reports she may have fallen onto her coffee table. Her pain is below her left breast and on the side of her chest wall. It is tender to palpation. No visible bruising. No radiation of the pain. No associated diaphoresis or nausea. She reports increased pain with deep breath. No fevers/chills or cough. She admits to drinking both manuel and white wine, has been sober in the past but drinking more lately and having more frequent falls. In the ED, CTA was neg for PE. Troponin is negative and EKG is non-ischemic. Given her falls, intoxication and difficulty caring for herself, she is admitted for further evaluation. History Information - Allergies/Home Medication List Allergies/Adverse Reactions: hydrochlorothiazide Allergy (Intermediate, Verified 04/18/18 03:12) Seizures Home Medications: QUEtiapine FUMARATE [Seroquel 300mg (*)] 300 mg PO HS 09/21/14 [Last Taken 04/16] Levothyroxine [Synthroid 112 mcg (*)] 112 mcg PO DAILY06 11/05/14 [Last Taken ] Meloxicam [Mobic 7.5 mg] 7.5 mg PO DAILY 11/05/14 [Last Taken 04/17/18] Budesonide/Formoterol 160/4.5 [Symbicort 160-4.5 Mcg Inh (*)] 1 puffs IH BID PRN 03/31/18 [Last Taken Unknown] Quetiapine Fumarate 200 mg PO DAILY 03/31/18 [Last Taken 04/17/18] predniSONE 10 mg PO DAILY 04/18/18 [Last Taken 04/17/18] I have personally reviewed and updated: family history, medical history, social history, surgical history - Past Medical History Additional medical history: Bipolar disorder, alcohol dependence with 3 withdrawal seizures, Raynaud's, erosive esophagitis, history GI bleed, hypothyroidism, COPD, tobacco abuse, history maxillary sinus fracture, anemia - Surgical History Additional surgical history: Breast reduction, sacral plasty - Family History Additional family history: Family history negative for seizures. brother with history of drug and alcohol abuse. Other family members with history of DM an HTN - Social History Smoking Status: Former smoker Additional social history: Patient lives alone in apartment. Her neighbor provide support. Patient has a brother who lives in [place]. Review of Systems Review of Systems: ROS: 10pt was reviewed & negative except for what was stated in HPI & below Physical Exam Physical Exam: Temp Pulse Resp BP Pulse Ox 36.7 C 106 H 20 145/87 H 95 04/18/18 06:58 04/18/18 06:58 04/18/18 06:58 04/18/18 06:58 04/18/18 06:58 O2 (L/minute) 2 Constitutional: no apparent distress, chronically ill appearing Eyes: PERRL Ears, Nose, Mouth, Throat: moist mucous membranes Cardiovascular: tachycardia Respiratory: no respiratory distress, clear to auscultation Gastrointestinal: normoactive bowel sounds, soft, non-tender abdomen Skin: warm, other (multiple bruises on trunk and extremities) Musculoskeletal: full muscle strength, abnormal gait Neurologic: AAOx3 Psychiatric: poor insight, poor judgement Lab Data & Imaging Review 04/18/18 03:10 04/18/18 03:10 WBC 14.89 10^3/uL (3.80-9.50) H 04/18/18 03:10 RBC 3.35 10^6/uL (4.18-5.33) L 04/18/18 03:10 Hgb 11.4 g/dL (12.6-16.3) L 04/18/18 03:10 Hct 33.2 % (38.0-47.0) L 04/18/18 03:10 MCV 99.1 fL (81.5-99.8) 04/18/18 03:10 MCH 34.0 pg (27.9-34.1) 04/18/18 03:10 MCHC 34.3 g/dL (32.4-36.7) 04/18/18 03:10 RDW 13.1 % (11.5-15.2) 04/18/18 03:10 Plt Count 315 10^3/uL (150-400) 04/18/18 03:10 MPV 8.2 fL (8.7-11.7) L 04/18/18 03:10 Neut % (Auto) 63.2 % (39.3-74.2) 04/18/18 03:10 Lymph % (Auto) 27.5 % (15.0-45.0) 04/18/18 03:10 [place] % (Auto) 7.8 % (4.5-13.0) 04/18/18 03:10 Eos % (Auto) 0.4 % (0.6-7.6) L 04/18/18 03:10 Baso % (Auto) 0.5 % (0.3-1.7) 04/18/18 03:10 Nucleat RBC Rel Count 0.0 % (0.0-0.2) 04/18/18 03:10 Absolute Neuts (auto) 9.42 10^3/uL (1.70-6.50) H 04/18/18 03:10 Absolute Lymphs (auto) 4.09 10^3/uL (1.00-3.00) H 04/18/18 03:10 Absolute Monos (auto) 1.16 10^3/uL (0.30-0.80) H 04/18/18 03:10 Absolute Eos (auto) 0.06 10^3/uL (0.03-0.40) 04/18/18 03:10 Absolute Basos (auto) 0.07 10^3/uL (0.02-0.10) 04/18/18 03:10 Absolute Nucleated RBC 0.00 10^3/uL (0-0.01) 04/18/18 03:10 Immature Gran % 0.6 % (0.0-1.1) 04/18/18 03:10 Immature Gran # 0.09 10^3/uL (0.00-0.10) 04/18/18 03:10 PT 12.3 SEC (12.0-15.0) 04/18/18 03:10 INR 0.89 (0.83-1.16) 04/18/18 03:10 APTT 20.3 SEC (23.0-38.0) L 04/18/18 03:10 Sodium 140 mEq/L (135-145) 04/18/18 03:10 Potassium 4.6 mEq/L (3.3-5.0) 04/18/18 03:10 Chloride 102 mEq/L (97-110) 04/18/18 03:10 Carbon Dioxide 22 mEq/l (22-31) 04/18/18 03:10 Anion Gap 16 mEq/L (6-14) H 04/18/18 03:10 BUN 13 mg/dL (7-23) 04/18/18 03:10 Creatinine 0.8 mg/dL (0.6-1.0) 04/18/18 03:10 Estimated GFR > 60 04/18/18 03:10 Glucose 66 mg/dL (70-100) L 04/18/18 03:10 Calcium 9.0 mg/dL (8.5-10.4) 04/18/18 03:10 Magnesium 2.0 mg/dL (1.6-2.3) 04/18/18 03:10 Total Bilirubin 0.6 mg/dL (0.1-1.4) 04/18/18 03:10 Conjugated Bilirubin 0.3 mg/dL (0.0-0.5) 04/18/18 03:10 Unconjugated Bilirubin 0.3 mg/dL (0.0-1.1) 04/18/18 03:10 AST 41 IU/L (14-46) 04/18/18 03:10 ALT 44 IU/L (9-52) 04/18/18 03:10 Alkaline Phosphatase 77 IU/L (38-126) 04/18/18 03:10 POC Troponin I 0.01 ng/mL (0.00-0.08) 04/18/18 03:15 NT-Pro-B Natriuret Pep 113 pg/mL (0-125) 04/18/18 03:10 Total Protein 8.1 g/dL (6.3-8.2) 04/18/18 03:10 Albumin 4.9 g/dL (3.5-5.0) 04/18/18 03:10 Lipase 192 IU/L (23-300) 04/18/18 03:10 Urine Opiates Screen NEGATIVE (NEGATIVE) 04/18/18 07:00 Urine Barbiturates NEGATIVE (NEGATIVE) 04/18/18 07:00 Ur Phencyclidine Scrn NEGATIVE (NEGATIVE) 04/18/18 07:00 Ur Amphetamine Screen NEGATIVE (NEGATIVE) 04/18/18 07:00 U Benzodiazepines Scrn NON-NEGATIVE (NEGATIVE) H 04/18/18 07:00 Urine Cocaine Screen NEGATIVE (NEGATIVE) 04/18/18 07:00 U Marijuana (THC) Screen NEGATIVE (NEGATIVE) 04/18/18 07:00 Ethyl Alcohol 220 mg/dL (0-10) H 04/18/18 03:10 Visualized and Interpreted Chest x-ray results: Yes Chest X-Ray results: no infiltrate Visualized and Interpreted EKG results: Yes EKG Interpretation: Positive for: normal sinsus rhythm EKG additional interpertation: sinus tac Assessment & Plan Assessment: Chest wall pain - c/w injury from fall in setting of etoh. Trop neg, ekg non- ischemic. -trend trop -pain control with lidoderm, tylenol, avoid opiates Acute alcohol intoxication - pt does not wish to stop drinking -will not plan to let full w/d ensue, but intoxicated on arrival so defer etoh for now, start wine this evening Falls - suspect related to etoh -PT/OT to ensure safety -consider wernicke's as contributory to unstable gait, will give thiamine 500 mg IV q8h Leukocytosis - no e/o infection, possibly stress response -hydrate and follow Volume depletion - IVF's Bipolar disorder - cont home seroquel COPD - no e/o exacerbation -cont home symbicort, prn albuterol Tobacco abuse - nicorette, encourage cessation Full code DVT PPLX - SCD's Dispo - obs, PT/OT evals
[2018-04-18] MEDS ORDERED: THIAMINE HCL 500 MG in NS 100 ML IV SCH ×2 (09:00→14:00)
[2018-04-18] MEDS ORDERED: ALBUTEROL 60 PUFFS/8 GM MDI IH PRN (12:43)
[2018-04-18] MEDS ORDERED: BUDESONIDE/FORMOTEROL 160/4.5 60 PUFFS/MDI IH PRN (12:43)
[2018-04-18] MEDS ORDERED: QUEtiapine FUMARATE 200 MG TAB PO SCH (12:45)
[2018-04-18] MEDS ORDERED: NICOTINE 14 MG/24 HR PATCH TD SCH (13:00)
[2018-04-18] MEDS: LORazepam 0.5 MG TAB PO PRN (13:05)
[2018-04-18] MEDS: predniSONE 20 MG TAB PO SCH (13:06)
[2018-04-18] MEDS: LEVOTHYROXINE 112 MCG TAB PO SCH (13:06)
--- NOTE | 2018-04-18 16:02 | ASMTCMCOM ---
CM Note CM Note Notes: Pts case discussed in tx rounds. Pt is a 62 y/o female admitted for a fall after being intoxicated and chest pain. Pt has a hx of bipolar. PT is recommending HC vs SNF. CM met w/ pt for dispo planning. Pt is agreeable to a referral made to [facility]. Pt reports that she was there in the past. Referral sent. Pts pasrr triggered due to her bipolar. Pt is not interested in stopping her ETOH. CAGE completed. CM to follow. Plan: [facility] Date Signed: 04/18/2018 04:01 PM Electronically Signed By:GRACY Newberry
--- NOTE | 2018-04-18 16:44 | ASMTCAGE ---
CAGE Do you feel you ought to Answers: No cut down on your drinking or drug use? Do people annoy you by Answers: Yes criticizing your drinking or drug use? Do you feel guilty about Answers: No your drinking or drug use? Do you drink or use drugs Answers: No first thing in the morning (Eye Edging Machine Setter)? Date Signed: 04/18/2018 04:43 PM Electronically Signed By:GRACY Newberry
[2018-04-18] MEDS: THIAMINE HCL 500 MG in NS 100 ML IV SCH (17:39)
[2018-04-18] MEDS: PANTOPRAZOLE SODIUM 40 MG TAB PO SCH (17:40)
[2018-04-18] MEDS: NICOTINE POLACRILEX 2 MG GUM B PRN ×2 (18:25→20:25)
[2018-04-18] MEDS: WHITE WINE 120 ML BOTTLE PO SCH (20:01)
[2018-04-18] MEDS: PATCH REMOVAL 1 EA PATCH TD SCH (20:26)
[2018-04-18] MEDS ORDERED: QUEtiapine FUMARATE 300 MG TAB PO SCH (21:00)
[2018-04-18] MEDS ORDERED: QUEtiapine FUMARATE 100 MG TAB PO SCH (21:00)
[2018-04-18] MEDS: BUDESONIDE/FORMOTEROL 160/4.5 60 PUFFS/MDI IH SCH (21:10)
[2018-04-19] MEDS: THIAMINE HCL 500 MG in NS 100 ML IV SCH ×3 (00:26→17:33)
[2018-04-19] MEDS: HYDROCODONE/APAP 5/325 TAB PO PRN ×4 (02:08→15:47)
[2018-04-19] MEDS: LORazepam 0.5 MG TAB PO PRN ×2 (02:09→12:51)
[2018-04-19] MEDS: NICOTINE POLACRILEX 2 MG GUM B PRN ×2 (02:10→04:00)
[2018-04-19 06:20] LABS: PLATELET COUNT 184 10^3/uL (150-400)
[2018-04-19] MEDS: LEVOTHYROXINE 112 MCG TAB PO SCH (06:27)
[2018-04-19] MEDS: LIDOCAINE 4%/MENTHOL 1% PATCH TD SCH (07:54)
[2018-04-19] MEDS: ENOXAPARIN 40 MG/0.4 ML SYR SC SCH (07:56)
[2018-04-19] MEDS: predniSONE 20 MG TAB PO SCH (07:56)
[2018-04-19] MEDS: PANTOPRAZOLE SODIUM 40 MG TAB PO SCH (07:57)
[2018-04-19] MEDS: QUEtiapine FUMARATE 200 MG TAB PO SCH (07:57)
[2018-04-19] MEDS: MULTIVITAMINS 1 EACH TAB PO SCH (07:58)
[2018-04-19] MEDS: BUDESONIDE/FORMOTEROL 160/4.5 60 PUFFS/MDI IH SCH ×2 (10:03→21:06)
--- NOTE | 2018-04-19 16:28 | ASMTCMCOM ---
CM Note CM Note Notes: Spoke with physician, RN and with pt in the room. Pt adamantly denies risk of falling or need for SNF or Home care as recommended by PT/OT. Pt states it was the fault of the cat for getting in her way and she would make sure that would not happen again. Pt is not planning to stop drinking and wants to return home to her apartment which she states is very small of "full of stuff" and does not have room to have a PT or OT visit. Pt wishing to return home independently stating she has friends and neighbors who can assist her. Pt did request a walker, and this RN provided a list of loan closets. Pt stated she could take a taxi to get a walker herself and as transportation at discharge. No further CM needs noted at this time. CM to follow. Date Signed: 04/19/2018 04:27 PM Electronically Signed By:Andie Zamudio
[2018-04-19] MEDS: IPRATROPIUM/ALBUTEROL 3 ML DEYVIAL IH SCH ×2 (16:31→21:06)
--- NOTE | 2018-04-19 19:08 | HOSPPROG ---
Hospitalist Progress Note Assessment/Plan: Chest wall pain - c/w injury from fall in setting of etoh. Trops neg, ekg non- ischemic. -pain control with lidoderm, tylenol, avoid opiates Acute alcohol intoxication - pt does not wish to stop drinking -daily wine while here Falls - suspect related to etoh -PT/OT to ensure safety -consider wernicke's as contributory to unstable gait, cont thiamine 500 mg IV q8h Leukocytosis - likely stress / hemoconcentration, resolved with hydration Volume depletion - cont IVF's Bipolar disorder - cont home seroquel, note daytime dose halved as it seemed to be causing somnolence COPD - no e/o exacerbation -cont home symbicort, prn albuterol Tobacco abuse - nicorette, encourage cessation Full code DVT PPLX - SCD's Dispo - change to inpt for acute PT/OT needs and pain control, therapy recommending SNF vs home care, pt does not want SNF Subjective: Pt feels better, still c/o pain in left ribs, has some bruising. Denies w/d symptoms, says she would like wine tonight. No CP or SOB. Gait is unstable. Objective: Vital Signs Temp Pulse Resp BP Pulse Ox 37.1 C 97 16 136/95 H 97 04/19/18 15:44 04/19/18 16:32 04/19/18 16:32 04/19/18 15:44 04/19/18 16:32 Laboratory Results 04/19/18 05:44 04/19/18 05:44 04/18/18 04/19/18 04/20/18 05:59 05:59 04:59 Intake Total 4393 1075 Output Total 3100 1400 Balance 1293 -325 PT 12.3 SEC (12.0-15.0) 04/18/18 03:10 INR 0.89 (0.83-1.16) 04/18/18 03:10 - Physical Exam Constitutional: no apparent distress Eyes: PERRL Ears, Nose, Mouth, Throat: moist mucous membranes Cardiovascular: regular rate and rhythym Respiratory: no respiratory distress, reduced air movement Gastrointestinal: normoactive bowel sounds, soft, non-tender abdomen Skin: warm, other (multiple ecchymoses on extremities, left posterior ribs) Musculoskeletal: abnormal gait, generalized weakness Neurologic: AAOx3 Psychiatric: interacting appropriately ICD10 Worksheet Patient Problems: Problems Problem Status Onset Alcohol intoxication Acute Chest pain Acute Failure to thrive in adult Acute Skin tear of left upper extremity Acute Alcohol withdrawal delirium Acute Chronic obstructive pulmonary disease with acute exacerbation Acute Upper GI bleed Acute
--- NOTE | 2018-04-19 19:57 | PDMN ---
Medical Necessity [place] [facility] [place] related disorders: adult FTT, frequent falls,, ETOH abuse- with hx of W/D Sz., , CP, leukocytosis, tachycardia, PMH bipolar disorder, ETOH abuse,- with W/D Sz., Raynauds, erosive esophagitis, GIB , hypothyroidism CPOD, tobacco abuse hx maxillary sinus fx , anemia. Pt lives alone in apartment, PT/OT tx., anticipate > 2 MN ongoing med nec care
[2018-04-19] MEDS: QUEtiapine FUMARATE 100 MG TAB PO SCH (20:46)
[2018-04-19] MEDS: PATCH REMOVAL 1 EA PATCH TD SCH (20:46)
[2018-04-19] MEDS: WHITE WINE 120 ML BOTTLE PO SCH (21:21)
[2018-04-20] MEDS: THIAMINE HCL 500 MG in NS 100 ML IV SCH ×2 (01:57→08:43)
[2018-04-20] MEDS: HYDROCODONE/APAP 5/325 TAB PO PRN ×5 (04:15→21:33)
[2018-04-20] MEDS: LEVOTHYROXINE 112 MCG TAB PO SCH (04:15)
[2018-04-20] MEDS: IPRATROPIUM/ALBUTEROL 3 ML DEYVIAL IH SCH ×4 (05:59→21:08)
[2018-04-20] MEDS: ENOXAPARIN 40 MG/0.4 ML SYR SC SCH (08:43)
[2018-04-20] MEDS: LIDOCAINE 4%/MENTHOL 1% PATCH TD SCH (08:43)
[2018-04-20] MEDS: predniSONE 20 MG TAB PO SCH (08:44)
[2018-04-20] MEDS: QUEtiapine FUMARATE 200 MG TAB PO SCH (08:44)
[2018-04-20] MEDS: PANTOPRAZOLE SODIUM 40 MG TAB PO SCH (08:44)
[2018-04-20] MEDS: MULTIVITAMINS 1 EACH TAB PO SCH (08:45)
[2018-04-20] MEDS: BUDESONIDE/FORMOTEROL 160/4.5 60 PUFFS/MDI IH SCH ×2 (10:46→21:08)
[2018-04-20] MEDS: LORazepam 0.5 MG TAB PO PRN (14:13)
[2018-04-20] MEDS ORDERED: WHITE WINE 120 ML BOTTLE PO SCH (14:24)
--- NOTE | 2018-04-20 14:33 | HOSPPROG ---
Hospitalist Progress Note Assessment/Plan: Chest wall pain - c/w injury from fall in setting of etoh. Trops neg, ekg non- ischemic. -pain control with lidoderm, tylenol, avoid opiates Acute alcohol intoxication - resolved, pt does not wish to stop drinking -increase to bid wine as she is developing w/d symptoms with once daily Falls - suspect related to etoh -consider wernicke's as contributory to unstable gait, s/p TID IV Thiamine x6 doses, reduce to once daily -PT/OT Leukocytosis - likely stress / hemoconcentration, resolved with hydration Volume depletion - s/p IVF resuscitation Bipolar disorder - cont home seroquel, note daytime dose halved as it seemed to be causing somnolence COPD - no e/o exacerbation -cont home symbicort, prn albuterol Tobacco abuse - nicorette, encourage cessation Full code DVT PPLX - SCD's Dispo - cont inpt, pt considering SNF vs HHC, CM following. Show Low care to evaluate tomorrow, possible dc to SNF. Subjective: Pt feels better today, though a bit tremulous. Again says she does not want to stop drinking. Pain is improved. No f/c. No n/v/d. Objective: Vital Signs Temp Pulse Resp BP Pulse Ox 36.7 C 119 H 20 126/62 H 95 04/20/18 11:50 04/20/18 11:50 04/20/18 11:50 04/20/18 11:50 04/20/18 11:50 Laboratory Results 04/20/18 03:20 04/19/18 05:44 04/19/18 04/20/18 04/21/18 06:59 05:59 05:59 Intake Total 1150 Output Total 650 Balance 500 PT 12.3 SEC (12.0-15.0) 04/18/18 03:10 INR 0.89 (0.83-1.16) 04/18/18 03:10 - Physical Exam Constitutional: no apparent distress Eyes: PERRL Ears, Nose, Mouth, Throat: moist mucous membranes Cardiovascular: tachycardia Respiratory: no respiratory distress, clear to auscultation Gastrointestinal: normoactive bowel sounds, soft, non-tender abdomen Skin: warm, other (multiple areas of ecchymosis on extremities and left posterior ribs) Musculoskeletal: full muscle strength, abnormal gait Neurologic: AAOx3 Psychiatric: interacting appropriately ICD10 Worksheet Patient Problems: Problems Problem Status Onset Alcohol intoxication Acute Chest pain Acute Failure to thrive in adult Acute Skin tear of left upper extremity Acute Alcohol withdrawal delirium Acute Chronic obstructive pulmonary disease with acute exacerbation Acute Upper GI bleed Acute
--- NOTE | 2018-04-20 14:54 | CPEKG ---
Test Reason : OPEN Blood Pressure : / mmHG Vent. Rate : 107 BPM Atrial Rate : 106 BPM P-R Int : 131 ms QRS Dur : 069 ms QT Int : 336 ms P-R-T Axes : 090 053 054 degrees QTc Int : 449 ms Sinus tachycardia Confirmed by Manohar Pate ([id number]) on 04/20/2018 2:53:44 PM Referred By: Confirmed By:Manohar Pate
--- NOTE | 2018-04-20 16:16 | ASMTCMCOM ---
CM Note CM Note Notes: Met with patient per MD request. Patient is a bit tremulous and tells me she feels a bit unsafe to go home. She would like to go to [facility] if her insurance would cover it. I informed her she will stay tonight and that [facility] will evaluate her situation tomorrow. CM to follow. plan: Dc to SNF vs Home. Date Signed: 04/20/2018 04:15 PM Electronically Signed By:Ingrid Hinton RN
[2018-04-20] MEDS: WHITE WINE 120 ML BOTTLE PO SCH ×2 (17:24→20:37)
[2018-04-20] MEDS: QUEtiapine FUMARATE 100 MG TAB PO SCH (21:33)
[2018-04-20] MEDS: PATCH REMOVAL 1 EA PATCH TD SCH (23:19)
[2018-04-21] MEDS: LEVOTHYROXINE 112 MCG TAB PO SCH (03:47)
[2018-04-21] MEDS: HYDROCODONE/APAP 5/325 TAB PO PRN ×4 (03:47→20:24)
[2018-04-21] MEDS: IPRATROPIUM/ALBUTEROL 3 ML DEYVIAL IH SCH ×2 (04:14→11:11)
[2018-04-21] MEDS: THIAMINE HCL 100 MG TAB PO SCH ×2 (08:19→10:18)
[2018-04-21] MEDS: predniSONE 20 MG TAB PO SCH (08:19)
[2018-04-21] MEDS: QUEtiapine FUMARATE 200 MG TAB PO SCH (08:20)
[2018-04-21] MEDS: BUDESONIDE/FORMOTEROL 160/4.5 60 PUFFS/MDI IH SCH (08:20)
[2018-04-21] MEDS: MULTIVITAMINS 1 EACH TAB PO SCH (08:21)
[2018-04-21] MEDS: PANTOPRAZOLE SODIUM 40 MG TAB PO SCH (08:21)
[2018-04-21] MEDS: ENOXAPARIN 40 MG/0.4 ML SYR SC SCH (08:23)
[2018-04-21] MEDS: LIDOCAINE 4%/MENTHOL 1% PATCH TD SCH (08:28)
[2018-04-21] MEDS: NS IV SCH (10:07)
[2018-04-21] MEDS: THIAMINE HCL IV SCH (10:07)
[2018-04-21] MEDS: METOPROLOL TARTRATE 25 MG TAB PO SCH ×2 (12:10→20:24)
[2018-04-21] MEDS ORDERED: IPRATROPIUM/ALBUTEROL 3 ML DEYVIAL IH PRN (16:00)
--- NOTE | 2018-04-21 16:35 | HOSPPROG ---
Hospitalist Progress Note Assessment/Plan: #Chest wall pain -from fall. Trops neg, ekg non-ischemic. Lidoderm, tylenol, avoid opiates #Acute alcohol intoxication - resolved, pt does not wish to stop drinking. Wine BID #Falls - suspect related to etoh. Consider wernicke's as contributory to unstable gait, PT/OT #Leukocytosis - likely stress / hemoconcentration, resolved with hydration #Tachycardia: start low-dose BB #Normocytic anemia: H/H stable #Volume depletion - s/p IVF resuscitation #Bipolar disorder: Seroquel; note daytime dose halved as it seemed to be causing somnolence #COPD - no e/o exacerbation. Symbicort, prn albuterol #Tobacco abuse - nicorette, encourage cessation #Deconditioning: PT rec SNF; CM placing referral #DVT ppx: Lovenox #Disp: cont inpatient admission for telemetry, PT Subjective: has resting tremors. Feels heart racing Objective: Vital Signs Temp Pulse Resp BP Pulse Ox 36.9 C 112 H 20 148/87 H 94 04/21/18 12:00 04/21/18 12:10 04/21/18 12:00 04/21/18 12:10 04/21/18 12:00 Laboratory Results 04/20/18 03:20 04/19/18 05:44 04/20/18 04/21/18 04/22/18 05:59 05:59 05:59 Intake Total 2450 132 Output Total 900 Balance 1550 132 PT 12.3 SEC (12.0-15.0) 04/18/18 03:10 INR 0.89 (0.83-1.16) 04/18/18 03:10 - Time Spent With Patient Time Spent with Patient: greater than 35 minutes Time Spent with Patient: Greater than 35 minutes spent on this patients care, greater than 50% of time spent counseling, educating, and coordinating care regarding the above mentioned plan. - Physical Exam Constitutional: unkempt Eyes: PERRL Ears, Nose, Mouth, Throat: moist mucous membranes Cardiovascular: tachycardia Respiratory: no respiratory distress Gastrointestinal: normoactive bowel sounds Genitourinary: no bladder fullness Skin: warm Musculoskeletal: full muscle strength Neurologic: AAOx3, CN II-XII Intact Psychiatric: flat affect ICD10 Worksheet Patient Problems: Problems Problem Status Onset Upper GI bleed Acute Alcohol withdrawal delirium Acute Chronic obstructive pulmonary disease with acute exacerbation Acute Failure to thrive in adult Acute Alcohol intoxication Acute Chest pain Acute Skin tear of left upper extremity Acute
[2018-04-21] MEDS: WHITE WINE 120 ML BOTTLE PO SCH ×2 (17:54→20:27)
[2018-04-21] MEDS: QUEtiapine FUMARATE 100 MG TAB PO SCH (20:24)
[2018-04-21] MEDS: PATCH REMOVAL 1 EA PATCH TD SCH (20:27)
[2018-04-22] MEDS: HYDROCODONE/APAP 5/325 TAB PO PRN ×3 (00:59→13:41)
[2018-04-22] MEDS: LEVOTHYROXINE 112 MCG TAB PO SCH (06:34)
[2018-04-22] MEDS: PANTOPRAZOLE SODIUM 40 MG TAB PO SCH (07:36)
[2018-04-22] MEDS: predniSONE 20 MG TAB PO SCH (08:38)
[2018-04-22] MEDS: MULTIVITAMINS 1 EACH TAB PO SCH (08:40)
[2018-04-22] MEDS: METOPROLOL TARTRATE 25 MG TAB PO SCH (08:41)
[2018-04-22] MEDS: QUEtiapine FUMARATE 200 MG TAB PO SCH (08:42)
[2018-04-22] MEDS: ENOXAPARIN 40 MG/0.4 ML SYR SC SCH (08:44)
[2018-04-22] MEDS: LIDOCAINE 4%/MENTHOL 1% PATCH TD SCH (08:47)
[2018-04-22] MEDS: THIAMINE HCL IV SCH (09:12)
[2018-04-22] MEDS: NS IV SCH (09:12)
[2018-04-22] MEDS: THIAMINE HCL 100 MG TAB PO SCH (09:13)
[2018-04-22 12:01] VITALS: BP 133/78
--- NOTE | 2018-04-22 12:19 | PDIAF ---
- Diagnosis Diagnosis: fall, chest wall injury - Medication Management Discharge Medications: electronically signed and located in the Home Medication List. - Orders Services needed: Registered Nurse, Master Food And Drug Research Scientist, Physical Therapy, Occupational Therapy Isolation Type: None Diet Recommendation: no restrictions on diet Diet Texture: Regular Texture Diet - Follow Up Care Current Providers and Referrals: Patient,NotPresent [Unknown] - As per Instructions
--- NOTE | 2018-04-22 13:21 | GDS ---
DISCHARGE DIAGNOSES: 1. Chest wall pain secondary to fall. 2. Acute alcohol intoxication. 3. Falls. 4. Leukocytosis. 5. Tachycardia. 6. Normocytic anemia. 7. Volume depletion. 8. Bipolar disorder. 9. Chronic obstructive pulmonary disease. 10. Tobacco abuse. 11. Deconditioning. HISTORY OF PRESENT ILLNESS: A 62-year-old female with alcohol dependence, COPD , bipolar disorder, presents to the ED via EMS reporting chest pain. She was intoxicated with a BAL of 220. She fell on her coffee table and had pain below her left breast and on the side of the chest wall. Reports increased chest pain with deep breathing. No fevers, chills, sweats, or cough. She drinks manuel ' and white wine and has been doing so more lately and having more frequent falls. HOSPITAL COURSE BY PROBLEM: 1. Chest wall pain: Secondary to fall in the setting of alcohol. Troponin and EKG were nonischemic. Pain controlled with Lidoderm and Tylenol. 2. Acute alcohol intoxication: counseled on cessation, but does not want to stop. BID wine 3. Falls related to alcohol. PT, OT recommends SNF and she is amenable. She will be transferred to [facility] today. Did receive high-dose thiamine for possible Wernicke. 4. Leukocytosis, likely stress inflammation. Resolved. 5. Bipolar disorder. Continue home Seroquel. Her daytime dose was decreased from 200 to 100 for somnolence. 6. COPD. no e/o exacerbation. Continue home medications. 7. Tobacco abuse. Nicorette gum. Counseled on cessation. 8. Tachycardia: reported as chronic per pt. Sinus tach on EKG. Added low-dose BB. 9. Mild GRACIELA, secondary dehydration. This is resolved. 10. L2 compression fraction with underlying osteoporosis. 11. Renal artery stenosis: This was seen on CT. Does not need intervention at this time. 12. History of UGIB: esophagitis, Grade 1 varices in 2015. PPI. Counseled on alcohol cessation. DISPOSITION: Patient is stable for discharge to [facility]. MEDICATIONS: See medication reconciliation. FOLLOWUP: With her primary care physician. Time spent on discharge, greater than 30 minutes coordinating with case management, and bedside with patient explaining medications. /[id number]/MODL MTDD
--- NOTE | 2018-04-22 15:31 | ASMTDCNOTE ---
Case Management Discharge Discharge Order Complete? Answers: Yes Patient to Obtain Answers: Other Notes: [facility] Medications Transportation Arranged Answers: Other Notes: w/c set up by Sangeeta at [facility] Transport will Pick (Date 04/22/2018 04:00 PM & Time) Faxed Final Orders Answers: Yes Notes: to [facility] Agency/Facility Transfer Answers: Yes Notes: to [facility] Report Printed & Faxed to Receiving Agency Discharge Comments Notes: 04/22/2018 Case Management Note Faxed final orders to [facility]. RN called report. [facility] arranged transport. Case Management d/c poc: [facility] SNF rehab Date Signed: 04/22/2018 03:30 PM Electronically Signed By:Tammy Wiggins RN
--- NOTE | 2018-04-22 15:32 | ASDISCHSUM ---
Discharge Information Plan Status:SNF Medically Cleared to Leave:04/21/2018 Discharge Date:04/21/2018 CM D/C Disposition:[facility] ADT D/C Disposition:[facility] Facility Projected Discharge Date:04/20/2018 11:00 AM Transportation at D/C:Wheelchair Van Discharge Delay Reason: Follow-Up Date:04/20/2018 11:00 AM Discharge Slot: Final Diagnosis: Placement Information Referral Type:*Senior Living/SNF Referral ID:[id number] Provider Name:[facility] Address 1:[address] Address 2: City:[place] Selection Factors: State:[place] Patient Contact Information Contact Name:TERRYBUNTING Relationship:Friend Address: Work Phone: [facility]:[place] Alternate Phone: [facility]/Zip Code:[place] Email: Financial Information Financial Class:Medicare Advantage Plans Primary Plan Desc:[facility]AGE PLANS Primary Plan Number:[id number] Secondary Plan Desc: Secondary Plan Number: Assessment Information LACE LACE Comorbidities - select Answers: Chronic pulmonary disease all that apply Opioid dependence / Chronic pain Other Notes: HTN; Hep C # of Emergency department Answers: 3-4 visits in the last 6 months Social determinants Answers: History of substance abuse (ETOH, street drugs, prescription drugs, etc.) Mental health diagnosis (anxiety, depression, pers onality disorders, etc.) Score: 16 Date Signed: 04/18/2018 08:05 AM Electronically Signed By:Trish Piña [facility] CM Progress Note CM Note CM Note Notes: Pts case discussed in tx rounds. Pt is a 62 y/o female admitted for a fall after being intoxicated and chest pain. Pt has a hx of bipolar. PT is recommending HC vs SNF. CM met w/ pt for dispo planning. Pt is agreeable to a referral made to [facility]. Pt reports that she was there in the past. Referral sent. Pts pasrr triggered due to her bipolar. Pt is not interested in stopping her ETOH. CAGE completed. CM to follow. Plan: [facility] Date Signed: 04/18/2018 04:01 PM Electronically Signed By:GRACY Newberry CAGE Questionnaire CAGE Do you feel you ought to Answers: No cut down on your drinking or drug use? Do people annoy you by Answers: Yes criticizing your drinking or drug use? Do you feel guilty about Answers: No your drinking or drug use? Do you drink or use drugs Answers: No first thing in the morning ([place] Adviser)? Date Signed: 04/18/2018 04:43 PM Electronically Signed By:GRACY Newberry [facility] Progress Note CM Note JOHN Note Notes: Spoke with physician, RN and with pt in the room. Pt adamantly denies risk of falling or need for SNF or Home care as recommended by PT/OT. Pt states it was the fault of the cat for getting in her way and she would make sure that would not happen again. Pt is not planning to stop drinking and wants to return home to her apartment which she states is very small of "full of stuff" and does not have room to have a PT or OT visit. Pt wishing to return home independently stating she has friends and neighbors who can assist her. Pt did request a walker, and this RN provided a list of loan closets. Pt stated she could take a taxi to get a walker herself and as transportation at discharge. No further CM needs noted at this time. CM to follow. Date Signed: 04/19/2018 04:27 PM Electronically Signed By:Andie Zamudio [facility] CM Progress Note CM Note CM Note Notes: Met with patient per MD request. Patient is a bit tremulous and tells me she feels a bit unsafe to go home. She would like to go to [facility] if her insurance would cover it. I informed her she will stay tonight and that [facility] will evaluate her situation tomorrow. CM to follow. plan: Dc to SNF vs Home. Date Signed: 04/20/2018 04:15 PM Electronically Signed By:Ingrid Hinton RN Case Management Discharge Plan Note Case Management Discharge Discharge Order Complete? Answers: Yes Patient to Obtain Answers: Other Notes: [facility] Medications Transportation Arranged Answers: Other Notes: w/c set up by Sangeeta at [facility] Transport will Pick (Date 04/22/2018 04:00 PM & Time) Faxed Final Orders Answers: Yes Notes: to [facility] Agency/Facility Transfer Answers: Yes Notes: to [facility] Report Printed & Faxed to Receiving Agency Discharge Comments Notes: 04/22/2018 Case Management Note Faxed final orders to [facility]. RN called report. [facility] arranged transport. Case Management d/c poc: [facility] SN[facility] re[facility] Date Signed: 04/22/2018 03:30 PM Electronically Signed By:Tammy Wiggins RN Intervention Information Intervention Type:*IM-Signed Date of Service:04/22/2018 02:12 PM Patient Type:Inpatient Staff Member:Trish Piña Hours: Discipline: Severity: Comment:
[2018-04-22] MEDS ORDERED: WHITE WINE 120 ML BOTTLE PO SCH (21:00)
== END 2018-04-22 15:55 | DRG 605 ==
LOC: EDUNIT# → OBSVTOIN 05:13 → F2W 06:04
PROVIDERS: ADMIT Family Medicine; ATTEND Internal Medicine
DX: S20.212A Contusion of left front wall of thorax, initial encounter (principal); W01.190A Fall on same level from slipping, tripping and stumbling with subsequent striking against furniture, initial encounter; Y92.018 Other place in single-family (private) house as the place of occurrence of the external cause; Y99.8 Other external cause status; F10.220 Alcohol dependence with intoxication, uncomplicated; R29.6 Repeated falls; F10.230 Alcohol dependence with withdrawal, uncomplicated; D64.9 Anemia, unspecified; E86.9 Volume depletion, unspecified; N17.9 Acute kidney failure, unspecified; F31.9 Bipolar disorder, unspecified; J43.9 Emphysema, unspecified; F17.210 Nicotine dependence, cigarettes, uncomplicated; I10 Essential (primary) hypertension; E03.9 Hypothyroidism, unspecified
CPT/HCPCS: 80305; 84484-PO; 96374; 97110-GP; 97116-GP; 97161-GP; 97166-GO; 97530-GP; 97535-GO; G0480; G8978-GP-CJ; G8979-GP-CI; G8980-GP-CI; G8987-GO-CL; G8988-GO-CK; J1650; J2060; J3411; J7512; J7613; Q9967

== ENCOUNTER 2018-09-12 07:07 | Inpatient (IN) | payer OTHER ==
[2018-09-12] MEDS ORDERED: IPRATROPIUM/ALBUTEROL 3 ML DEYVIAL IH ONE (07:24)
[2018-09-12] MEDS ORDERED: methylPREDNISolone SOD SUCC 125 MG/2 ML VIAL IVP ONE (07:36)
--- NOTE | 2018-09-12 07:39 | EDPHY ---
H & P Stated Complaint: sob Time Seen by Provider: 09/12/18 07:27 HPI/ROS: CHIEF COMPLAINT: Shortness of breath HISTORY OF PRESENT ILLNESS: 63-year-old female with COPD presents with shortness of breath. She ran out of her inhalers 3 days ago. Onset of shortness of breath 3 hr ago. The shortness of breath is fairly severe and increases with any exertion. She is short of breath at rest. Associated with a productive cough. She was admitted in March 2018 for a COPD exacerbation and discharged home on oxygen. Oxygen saturations have been in the 90s on RA for the past 4 months and she no longer has home oxygen. No fever or chest pain. No recent URI symptoms. REVIEW OF SYSTEMS: complete 10 point ROS reviewed and is negative except for the noted elements in the HPI - Personal History Current Tetanus Diphtheria and Acellular Pertussis (TDAP): Yes Tetanus Vaccine Date: Within 5 years. - Medical/Surgical History Hx Asthma: No Hx Chronic Respiratory Disease: Yes Hx Diabetes: No Hx Cardiac Disease: No Hx Renal Disease: No Hx Cirrhosis: No Hx Alcoholism: Yes Hx HIV/AIDS: No Hx Splenectomy or Spleen Trauma: No Other PMH: COPD, HTN, mixed connective tissue disorder, hypothyroid, chronic pain, HL, reports bipolar, etoh, smoker, hep c+,pneumonia,psych - Social History Smoking Status: Former smoker Alcohol Use: Sober Drug Use: None - Physical Exam Exam: General Appearance: Alert, pleasant, on oxygen 4 L by nasal cannula, oxygen saturation 95% Eyes: Pupils equal and round, no conjunctival pallor or injection ENT, Mouth: Mucous membranes moist Neck: Normal inspection Respiratory: Tachypnea, retractions present, diffuse expiratory wheezing and poor air exchange Cardiovascular: Regular tachycardia Gastrointestinal: Abdomen is soft and nontender Neurological: A&O, nonfocal exam Skin: Warm and dry, Multiple psoriatic lesions Extremities: no swelling or tenderness Psychiatric: Mood and affect normal Constitutional: Initial Vital Signs Temperature (C) 36.8 C 09/12/18 07:08 Heart Rate 130 H 09/12/18 07:08 Respiratory Rate 24 H 09/12/18 07:08 Blood Pressure 124/79 H 09/12/18 07:08 O2 Sat (%) 79 L 09/12/18 07:08 O2 Delivery Mode Nasal Cannula O2 (L/minute) 2 Allergies/Adverse Reactions: hydrochlorothiazide Allergy (Intermediate, Verified 04/18/18 03:12) Seizures Home Medications: Medication Instructions Recorded QUEtiapine FUMARATE [Seroquel 300 mg PO HS 09/21/14 300mg (*)] Levothyroxine [Synthroid 112 mcg 112 mcg PO DAILY06 11/05/14 (*)] Budesonide/Formoterol 160/4.5 1 puffs IH BID PRN 03/31/18 [Symbicort 160-4.5 Mcg Inh (*)] Albuterol [Proventil Inhaler HFA 1 - 2 puffs IH Q4H PRN #1 mdi 04/07/18 (*)] amLODIPine BESYLATE [Norvasc 10 mg 10 mg PO DAILY #30 tab 04/07/18 (*)] Metoprolol Tartrate [Lopressor 25 12.5 mg PO BID tab 04/22/18 mg (*)] Nicotine Polacrilex [Nicorette gum 2 mg B PRN PRN gum 04/22/18 (*)] Omeprazole 20 mg PO DAILY 09/12/18 QUEtiapine FUMARATE [Seroquel 200 20 mg PO DAILY 09/12/18 mg (*)] Medical Decision Making - Diagnostics EKG Interpretation: EKG interpreted by me reveals sinus tachycardia, rate 118, right atrial enlargement, no ST or T segment changes. Interpretation: Abnormal EKG Imaging Results: Imaging Impressions Chest X-Ray 09/12/18 07:28 Impression: No evidence for acute cardiopulmonary abnormality. Stable chronic findings as above. Imaging: I viewed and interpreted images myself ED Course/Re-evaluation: This patient presents with a COPD exacerbation and respiratory distress secondary to running out of medications. No evidence for infection by clinical history or on exam. A DuoNeb was given. Solu-Medrol 125 mg IV given. 8:30 a.m.-feels much better after the DuoNeb. Respiratory distress has resolved. Repeat exam: Normal respiratory rate, no retractions, air exchange is improved, expiratory wheezing persists. An albuterol nebulizer was given. After the albuterol, I will reassess. Chest x-ray reveals no evidence of pneumonia. Patient continues to be hypoxic after the albuterol neb. Persistent expiratory wheezing on exam. Will admit for further treatment of COPD exacerbation. The hospitalist service was consulted for admission. Differential Diagnosis: Differential diagnosis includes though it is not limited to pneumonia, pneumothorax, pulmonary embolism, aortic dissection, pericarditis, acute coronary syndrome. - Data Points Laboratory Results: Laboratory Results 09/12/18 07:35 09/12/18 07:35 09/12/18 09/12/18 07:35 07:35 WBC 10.29 10^3/uL H 10^3/uL (3.80-9.50) RBC 4.36 10^6/uL 10^6/uL (4.18-5.33) Hgb 12.7 g/dL g/dL (12.6-16.3) Hct 37.0 % L % (38.0-47.0) MCV 84.9 fL fL (81.5-99.8) MCH 29.1 pg pg (27.9-34.1) MCHC 34.3 g/dL g/dL (32.4-36.7) RDW 14.6 % % (11.5-15.2) Plt Count 337 10^3/uL 10^3/uL (150-400) MPV 8.6 fL L fL (8.7-11.7) Neut % (Auto) 52.7 % % (39.3-74.2) Lymph % (Auto) 36.2 % % (15.0-45.0) Beauregard % (Auto) 9.6 % % (4.5-13.0) Eos % (Auto) 0.3 % L % (0.6-7.6) Baso % (Auto) 0.8 % % (0.3-1.7) Nucleat RBC Rel Count 0.0 % % (0.0-0.2) Absolute Neuts (auto) 5.42 10^3/uL 10^3/uL (1.70-6.50) Absolute Lymphs (auto) 3.73 10^3/uL H 10^3/uL (1.00-3.00) Absolute Monos (auto) 0.99 10^3/uL H 10^3/uL (0.30-0.80) Absolute Eos (auto) 0.03 10^3/uL 10^3/uL (0.03-0.40) Absolute Basos (auto) 0.08 10^3/uL 10^3/uL (0.02-0.10) Absolute Nucleated RBC 0.00 10^3/uL 10^3/uL (0-0.01) Immature Gran % 0.4 % % (0.0-1.1) Immature Gran # 0.04 10^3/uL 10^3/uL (0.00-0.10) Sodium 142 mEq/L mEq/L (135-145) Potassium 4.5 mEq/L mEq/L (3.5-5.2) Chloride 102 mEq/L mEq/L (97-110) Carbon Dioxide 24 mEq/l mEq/l (22-31) Anion Gap 16 mEq/L H mEq/L (6-14) BUN 26 mg/dL H mg/dL (7-23) Creatinine 1.0 mg/dL mg/dL (0.6-1.0) Estimated GFR 56 Glucose 94 mg/dL mg/dL (70-100) Calcium 9.9 mg/dL mg/dL (8.5-10.4) Medications Given: Discontinued Medications Albuterol (Proventil Neb) 3 ml IH EDNOW ONE Stop: 09/12/18 08:23 Last Admin: 09/12/18 08:31 Dose: 3 ml Albuterol/Ipratropium (Duoneb) 3 ml IH EDNOW ONE Stop: 09/12/18 07:25 Last Admin: 09/12/18 07:38 Dose: 3 ml Methylprednisolone Sodium Succinate (Solu-Medrol) 125 mg IVP EDNOW ONE Stop: 09/12/18 07:37 Last Admin: 09/12/18 07:41 Dose: 125 mg Departure - Departure Disposition: [facility] Inpatient Acute Clinical Impression: Chronic obstructive pulmonary disease with acute exacerbation Condition: Fair
[2018-09-12 07:54] LABS: PLATELET COUNT 337 10^3/uL (150-400)
[2018-09-12] MEDS ORDERED: ALBUTEROL 3 ML DEYVIAL IH ONE (08:22)
[2018-09-12] MEDS ORDERED: ONDANSETRON 4 MG/2 ML VIAL IVP PRN (10:07)
[2018-09-12] MEDS ORDERED: PROMETHAZINE HCL 25 MG/ML INJ IVP PRN (12:31)
[2018-09-12] MEDS ORDERED: BUDESONIDE/FORMOTEROL 160/4.5 60 PUFFS/MDI IH PRN (12:32)
[2018-09-12] MEDS ORDERED: LORazepam 2 MG/ML INJ IVP PRN (12:33)
[2018-09-12] MEDS ORDERED: OXYCODONE/APAP 5/325 TAB PO PRN (12:34)
[2018-09-12] MEDS ORDERED: ACETAMINOPHEN 325 MG TAB PO PRN (12:34)
[2018-09-12] MEDS ORDERED: ONDANSETRON DISINTEGRATING 4 MG TAB PO PRN (12:34)
[2018-09-12] MEDS: NS W/ 20 KCl/L 1,000 ML IV SCH (12:48)
[2018-09-12] MEDS: PANTOPRAZOLE SODIUM 40 MG VIAL IVP SCH (12:49)
--- NOTE | 2018-09-12 15:17 | CPEKG ---
Test Reason : OPEN Blood Pressure : / mmHG Vent. Rate : 118 BPM Atrial Rate : 118 BPM P-R Int : 161 ms QRS Dur : 080 ms QT Int : 308 ms P-R-T Axes : 086 070 066 degrees QTc Int : 432 ms Sinus tachycardia MO, consider biatrial enlargement Confirmed by Cassia Zuluaga ([id number]) on 09/12/2018 3:17:37 PM Referred By: CASSIA ZULUAGA Confirmed By:Cassia Zuluaga
[2018-09-12] MEDS: METOPROLOL TARTRATE 25 MG TAB PO SCH (17:41)
--- NOTE | 2018-09-12 18:03 | PDGENHP ---
History and Physical - Chief Complaint sob - History of Present Illness 63-year-old female with COPD presents with shortness of breath. She ran out of her inhalers 3 days ago. Onset of shortness of breath 3 hr ago. The shortness of breath is fairly severe and increases with any exertion. She is short of breath at rest. Associated with a productive cough. She was admitted in March 2018 for a COPD exacerbation and discharged home on oxygen. Oxygen saturations have been in the 90s on RA for the past 4 months and she no longer has home oxygen. No fever or chest pain. No recent URI symptoms. started on IV steroids in ER CXR: no infiltrate, personally reviewed PMH: COPD, HTN, mixed connective tissue disorder, hypothyroid, chronic pain, HL , reports bipolar, etoh, smoker, hep c+,pneumonia,psych - Social History Former smoker Alcohol Use: Sober Drug Use: None FmHx: non contributory History Information - Allergies/Home Medication List Allergies/Adverse Reactions: hydrochlorothiazide Allergy (Intermediate, Verified 04/18/18 03:12) Seizures Home Medications: QUEtiapine FUMARATE [Seroquel 300mg (*)] 300 mg PO HS 09/21/14 [Last Taken 09/11] Levothyroxine [Synthroid 112 mcg (*)] 112 mcg PO DAILY06 11/05/14 [Last Taken ] Budesonide/Formoterol 160/4.5 [Symbicort 160-4.5 Mcg Inh (*)] 1 puffs IH BID PRN 03/31/18 [Last Taken 09/12/18] Omeprazole 20 mg PO DAILY 09/12/18 [Last Taken 09/12/18] QUEtiapine FUMARATE [Seroquel 200 mg (*)] 200 mg PO DAILY 09/12/18 [Last Taken 09/12/18] I have personally reviewed and updated: medical history, social history Past Medical History: patient denied taking any medications on regular basis. - Past Medical History Additional medical history: Bipolar disorder, alcohol dependence with 3 withdrawal seizures, Raynaud's, erosive esophagitis, history GI bleed, hypothyroidism, COPD, tobacco abuse, history maxillary sinus fracture, anemia - Surgical History Additional surgical history: Breast reduction, sacral plasty - Family History Additional family history: Family history negative for seizures. brother with history of drug and alcohol abuse. Other family members with history of DM an HTN - Social History Smoking Status: Former smoker Alcohol Use: Sober Drug Use: None Additional social history: Patient lives alone in apartment. Her neighbor provide support. Patient has a brother who lives in [place]. Review of Systems Review of Systems: ROS: 10pt was reviewed & negative except for what was stated in HPI & below Physical Exam Physical Exam: Temp Pulse Resp BP Pulse Ox 37.6 C 121 H 16 140/79 H 90 L 09/12/18 16:12 09/12/18 16:12 09/12/18 16:12 09/12/18 16:12 09/12/18 16:12 O2 (L/minute) 4 Constitutional: no apparent distress Eyes: PERRL, EOMI Ears, Nose, Mouth, Throat: moist mucous membranes Cardiovascular: regular rate and rhythym, No edema Respiratory: expiratory wheeze Gastrointestinal: normoactive bowel sounds, soft, non-tender abdomen Skin: warm Neurologic: AAOx3 Psychiatric: interacting appropriately, not anxious, not encephalopathic Lymph, Heme, Immunologic: No petechiae Lab Data & Imaging Review 09/12/18 07:35 09/12/18 07:35 WBC 10.29 10^3/uL (3.80-9.50) H 09/12/18 07:35 RBC 4.36 10^6/uL (4.18-5.33) 09/12/18 07:35 Hgb 12.7 g/dL (12.6-16.3) 09/12/18 07:35 Hct 37.0 % (38.0-47.0) L 09/12/18 07:35 MCV 84.9 fL (81.5-99.8) 09/12/18 07:35 MCH 29.1 pg (27.9-34.1) 09/12/18 07:35 MCHC 34.3 g/dL (32.4-36.7) 09/12/18 07:35 RDW 14.6 % (11.5-15.2) 09/12/18 07:35 Plt Count 337 10^3/uL (150-400) 09/12/18 07:35 MPV 8.6 fL (8.7-11.7) L 09/12/18 07:35 Neut % (Auto) 52.7 % (39.3-74.2) 09/12/18 07:35 Lymph % (Auto) 36.2 % (15.0-45.0) 09/12/18 07:35 Mineral % (Auto) 9.6 % (4.5-13.0) 09/12/18 07:35 Eos % (Auto) 0.3 % (0.6-7.6) L 09/12/18 07:35 Baso % (Auto) 0.8 % (0.3-1.7) 09/12/18 07:35 Nucleat RBC Rel Count 0.0 % (0.0-0.2) 09/12/18 07:35 Absolute Neuts (auto) 5.42 10^3/uL (1.70-6.50) 09/12/18 07:35 Absolute Lymphs (auto) 3.73 10^3/uL (1.00-3.00) H 09/12/18 07:35 Absolute Monos (auto) 0.99 10^3/uL (0.30-0.80) H 09/12/18 07:35 Absolute Eos (auto) 0.03 10^3/uL (0.03-0.40) 09/12/18 07:35 Absolute Basos (auto) 0.08 10^3/uL (0.02-0.10) 09/12/18 07:35 Absolute Nucleated RBC 0.00 10^3/uL (0-0.01) 09/12/18 07:35 Immature Gran % 0.4 % (0.0-1.1) 09/12/18 07:35 Immature Gran # 0.04 10^3/uL (0.00-0.10) 09/12/18 07:35 Sodium 142 mEq/L (135-145) 09/12/18 07:35 Potassium 4.5 mEq/L (3.5-5.2) 09/12/18 07:35 Chloride 102 mEq/L (97-110) 09/12/18 07:35 Carbon Dioxide 24 mEq/l (22-31) 09/12/18 07:35 Anion Gap 16 mEq/L (6-14) H 09/12/18 07:35 BUN 26 mg/dL (7-23) H 09/12/18 07:35 Creatinine 1.0 mg/dL (0.6-1.0) 09/12/18 07:35 Estimated GFR 56 09/12/18 07:35 Glucose 94 mg/dL (70-100) 09/12/18 07:35 Calcium 9.9 mg/dL (8.5-10.4) 09/12/18 07:35 Magnesium 1.8 mg/dL (1.6-2.3) 09/12/18 07:35 Assessment & Plan Assessment: Chronic obstructive pulmonary disease with acute exacerbation (Acute)
[2018-09-12] MEDS: IPRATROPIUM/ALBUTEROL 3 ML DEYVIAL IH PRN (18:17)
[2018-09-12] MEDS: BUDESONIDE/FORMOTEROL 160/4.5 60 PUFFS/MDI IH SCH (18:20)
[2018-09-12] MEDS: QUEtiapine FUMARATE 300 MG TAB PO SCH (20:54)
[2018-09-12] MEDS ORDERED: METOPROLOL TARTRATE 25 MG TAB PO SCH (21:00)
[2018-09-13] MEDS: NS W/ 20 KCl/L 1,000 ML IV SCH (01:56)
[2018-09-13 04:53] LABS: PLATELET COUNT 309 10^3/uL (150-400)
[2018-09-13] MEDS: LEVOTHYROXINE 112 MCG TAB PO SCH (05:38)
[2018-09-13] MEDS: IPRATROPIUM/ALBUTEROL 3 ML DEYVIAL IH PRN ×2 (06:29→14:19)
[2018-09-13] MEDS: predniSONE 20 MG TAB PO SCH (09:00)
[2018-09-13] MEDS: QUEtiapine FUMARATE 200 MG TAB PO SCH (09:00)
[2018-09-13] MEDS: METOPROLOL TARTRATE 25 MG TAB PO SCH ×2 (09:01→20:44)
[2018-09-13] MEDS: ENOXAPARIN 40 MG/0.4 ML SYR SC SCH (09:01)
[2018-09-13] MEDS: PANTOPRAZOLE SODIUM 40 MG VIAL IVP SCH (09:01)
[2018-09-13] MEDS: BUDESONIDE/FORMOTEROL 160/4.5 60 PUFFS/MDI IH SCH ×2 (09:05→21:50)
--- NOTE | 2018-09-13 10:11 | ASMTCMCOM ---
CM Note CM Note Notes: Pt admitted for COPD exacerbation. Pt lives alone in an apt and has a neighbor that looks out for her. No therapies ordered. Anticipate she will dc home when medically stable. DC Plan: Independent Date Signed: 09/13/2018 10:10 AM Electronically Signed By:Joyce Purdy RN
--- NOTE | 2018-09-13 10:20 | HOSPPROG ---
Hospitalist Progress Note Assessment/Plan: 63-year-old with significant tobacco use up until 3 years ago and COPD presents with increased shortness of breath. No obvious viral illness or pneumonia however she does admit to stopping her Singulair a week ago secondary to cost. # acute COPD exacerbation likely secondary to med noncompliance possible allergies. No obvious infectious source noted * Continue prednisone and nebulizers * Add Singulair * Follow clinically, will need additional midnight stay due to ongoing significant hypoxic respiratory failure. # hypertension, stable # bipolar disease currently on Seroquel and well controlled. # hepatitis-C positive # mixed connective tissue disease with chronic pain # nausea and vomiting on admission, no complaints this morning. Will stop IV fluids and monitor her oral intake. Subjective: Patient new to me and chart reviewed. Feeling much better however still quite hypoxic and short of breath with significant wheezing noted on exam. Objective: Vital Signs Temp Pulse Resp BP Pulse Ox 37.1 C 114 H 18 135/74 H 91 L 09/13/18 07:40 09/13/18 09:08 09/13/18 09:08 09/13/18 07:40 09/13/18 09:08 Microbiology 09/12/18 18:27 Respiratory Panel (PCR) - Final Nasal, Sinus - Swab No Organism Detected By Pcr Laboratory Results 09/13/18 04:22 09/13/18 04:22 09/12/18 09/13/18 09/14/18 05:59 05:59 05:59 Intake Total 1050 Balance 1050 - Physical Exam Constitutional: chronically ill appearing, uncomfortable Eyes: PERRL Ears, Nose, Mouth, Throat: moist mucous membranes Cardiovascular: tachycardia Respiratory: reduced air movement, expiratory wheeze, respiratory distress Gastrointestinal: soft, non-tender abdomen Genitourinary: no bladder fullness Skin: warm, normal color Neurologic: AAOx3 Psychiatric: interacting appropriately ICD10 Worksheet Patient Problems: Problems Problem Status Onset Upper GI bleed Acute Alcohol withdrawal delirium Acute Chronic obstructive pulmonary disease with acute exacerbation Acute Failure to thrive in adult Acute Alcohol intoxication Acute Chest pain Acute Skin tear of left upper extremity Acute
--- NOTE | 2018-09-13 17:42 | PDMN ---
Medical Necessity Medical necessity: MCG: M100 COPD A-2 - pt presents with SOB, N, HTN, WAGNER, productive cough, sats down to 78% RA low 90's with 3 L., with sig wheezing on exam. status changed to INPT 09/13/18 for ongoing monitoing, tx of above > 2 MN-- IVF, IV antiemetics, IV protonix,, duonebs-
[2018-09-13] MEDS: MONTELUKAST SODIUM 10 MG TAB PO SCH (17:56)
[2018-09-13] MEDS: QUEtiapine FUMARATE 300 MG TAB PO SCH (20:44)
[2018-09-14] MEDS: LEVOTHYROXINE 112 MCG TAB PO SCH (05:03)
[2018-09-14] MEDS: BUDESONIDE/FORMOTEROL 160/4.5 60 PUFFS/MDI IH SCH ×2 (08:40→21:24)
[2018-09-14] MEDS: IPRATROPIUM/ALBUTEROL 3 ML DEYVIAL IH PRN ×2 (08:40→21:24)
[2018-09-14] MEDS: METOPROLOL TARTRATE 25 MG TAB PO SCH ×2 (09:40→20:45)
[2018-09-14] MEDS: QUEtiapine FUMARATE 200 MG TAB PO SCH (09:40)
[2018-09-14] MEDS: PANTOPRAZOLE SODIUM 40 MG VIAL IVP SCH (09:41)
[2018-09-14] MEDS: ENOXAPARIN 40 MG/0.4 ML SYR SC SCH (09:42)
[2018-09-14] MEDS: predniSONE 20 MG TAB PO SCH (10:14)
--- NOTE | 2018-09-14 13:01 | HOSPPROG ---
Hospitalist Progress Note Assessment/Plan: 63-year-old with significant tobacco use up until 3 years ago and COPD presents with increased shortness of breath. No obvious viral illness or pneumonia however she does admit to stopping her Symbicort inhaler a week ago secondary to cost. # acute COPD exacerbation likely secondary to med noncompliance possible allergies. No obvious infectious source noted * Continue prednisone and nebulizers * Add Singulair * Follow clinically, will need additional midnight stay due to ongoing significant hypoxic respiratory failure. * Currently at 88-89% at rest on RA and drops to 84% with activity, pt does not want Oxygen at DC, will stay additional day and work on activity and ambulation prior to DC. # hypertension, stable # bipolar disease currently on Seroquel and well controlled. # hepatitis-C positive # mixed connective tissue disease with chronic pain # nausea and vomiting on admission, no complaints this morning. Will stop IV fluids and monitor her oral intake. Dispo: home likely tomorrow if oxygen needs go down. SHe has a nebulizer at home and is requesting duonebs, she may benefit from singulair and prednisone taper at DC. Subjective: doing better, Does not want oxygen. gets hypoxic with minimal activity. Wants to continue working in hospital with ambulation Objective: Vital Signs Temp Pulse Resp BP Pulse Ox 37.0 C 92 16 107/71 90 L 09/14/18 11:24 09/14/18 11:24 09/14/18 11:24 09/14/18 11:24 09/14/18 11:24 09/13/18 09/14/18 09/15/18 05:59 05:59 05:59 Intake Total 700 Balance 700 - Physical Exam Constitutional: uncomfortable Eyes: PERRL Cardiovascular: regular rate and rhythym Respiratory: reduced air movement, respiratory distress Neurologic: AAOx3 Psychiatric: interacting appropriately ICD10 Worksheet Patient Problems: Problems Problem Status Onset Upper GI bleed Acute Alcohol withdrawal delirium Acute Chronic obstructive pulmonary disease with acute exacerbation Acute Failure to thrive in adult Acute Alcohol intoxication Acute Chest pain Acute Skin tear of left upper extremity Acute
[2018-09-14] MEDS: MONTELUKAST SODIUM 10 MG TAB PO SCH (18:11)
[2018-09-14] MEDS: QUEtiapine FUMARATE 300 MG TAB PO SCH (20:45)
[2018-09-15] MEDS: QUEtiapine FUMARATE 200 MG TAB PO SCH (08:22)
[2018-09-15] MEDS: predniSONE 20 MG TAB PO SCH (08:22)
[2018-09-15] MEDS: METOPROLOL TARTRATE 25 MG TAB PO SCH (08:22)
[2018-09-15] MEDS: ENOXAPARIN 40 MG/0.4 ML SYR SC SCH (08:23)
[2018-09-15] MEDS: LEVOTHYROXINE 112 MCG TAB PO SCH (08:29)
[2018-09-15] MEDS ORDERED: PANTOPRAZOLE SODIUM 40 MG TAB PO SCH (09:00)
[2018-09-15] MEDS: BUDESONIDE/FORMOTEROL 160/4.5 60 PUFFS/MDI IH SCH (09:15)
[2018-09-15 11:50] VITALS: BP 116/75
--- NOTE | 2018-09-15 12:08 | PDHOMEO2F ---
Home Oxygen Face to Face Home Orders: I certify that a physician or a nurse practitioner or physician's sociology research assistant has had a [id number] encounter with this patient on the date of this order due to the diagnosis listed, which relates to the primary reason the patient requires home oxygen. Alternative treatments have been tried, or considered, and deemed ineffective. It is anticipated that supplemental oxygen will result in improvement with treatment. Home oxygen qualifying diagnosis: COPD SpO2 on room air (%): 85 Frequency of home oxygen needed: with activity Home oxygen liters per minute: 2 Home oxygen delivery device: nasal cannula Concentrator: Yes E-tanks for mobility and back up: Yes If ordering portable O2, is the patient mobile in the home?: Yes I certify that, based on these findings, the home oxygen is medically necessary for this patient for the following length of time. Length of time home oxygen needed: 1 month
[2018-09-15] MEDS: NICOTINE POLACRILEX 2 MG GUM B PRN ×2 (14:41→15:46)
--- NOTE | 2018-09-15 20:07 | GDS ---
[f rep st] DISCHARGE SUMMARY ALL DIAGNOSES: 1. Acute chronic obstructive pulmonary disease exacerbation. 2. Acute on chronic hypoxic respiratory failure. 3. Hypertension. 4. Bipolar. 5. Hepatitis C. 6. Mixed connective tissue disease with chronic pain. HOSPITAL COURSE: This is a 63-year-old female admitted with hypoxia. She was initially noted to be w heezing and hypoxic. She has improved significantly with treatment, including steroids, as well as ne bulizers. On the day of discharge, on ambulation, she still desaturated to 85% with a heart rate of 1 16; because of this, I have ordered her home oxygen. Will give her a short course of prednisone. I [place] ve refilled her nebulizer. I will give her an additional prescription for an albuterol inhaler. For her hypertension, she was mildly hypotensive and dizzy on the day of discharge. I have decreased her amlodipine. Followup blood pressure was 116/75. She will continue her Coreg. For her chronic liver disease, she needs outpatient followup with consideration of an additional ultr asound BILLING: I spent more than 30 minutes on the day of discharge coordinating her care. /[id number]/MODL
== END 2018-09-15 16:14 | disposition home or self-care (01) | DRG 190 ==
LOC: F3E 09:51 → OBSVTOIN 09-13 16:11
PROVIDERS: ADMIT Family Medicine; ATTEND Family Medicine
DX: J44.1 Chronic obstructive pulmonary disease with (acute) exacerbation (principal); J96.21 Acute and chronic respiratory failure with hypoxia; B19.20 Unspecified viral hepatitis C without hepatic coma; I10 Essential (primary) hypertension; E03.9 Hypothyroidism, unspecified; G89.29 Other chronic pain; F31.9 Bipolar disorder, unspecified; I73.00 Raynaud's syndrome without gangrene; L94.9 Localized connective tissue disorder, unspecified; F17.210 Nicotine dependence, cigarettes, uncomplicated; Z87.01 Personal history of pneumonia (recurrent); Z23 Encounter for immunization; Z87.891 Personal history of nicotine dependence
CPT/HCPCS: 96374; 97161-GP; G0008; G0378; J1650; J2405; J2550; J2930; J7512; J7613